=== PATIENT | female | born 1935 | race Caucasian/White ===

== ENCOUNTER → 2017-08-16 13:53 | Outpatient (CLI) | payer MEDICARE, OTHER, SELFPAY ==
[2017-07-28 10:20] VITALS: BMI 26.6
--- NOTE | 2017-08-16 | DI.CT.S_ITS ---
PROCEDURE: CT LUMBAR SPINE WO CON INDICATIONS: LUMBAR SPINE PAIN TECHNIQUE: Noncontrast 3 mm thick sections acquired from the T12 level to the sacrum. Sagittal and coronal reformats were constructed. For radiation dose reduction, the following was used: automated exposure control. COMPARISON: [facility], CR, XR LUMBAR SPINE 2-3V, 07/28/2017, 13:17. [facility], NM, BONE SCAN WHOLE BODY, 09/02/2016, 12:57. [facility], MR, L-SPINE WITHOUT CONTRAST, 04/10/2017, 15:56. [facility], RG, MRI L-SPINE W/WO CONTRAST, 10/27/2016, 13:58. FINDINGS: Image quality: Excellent. Bones: A discectomy and posterior fusion at L4-L5. The unilateral right pedicular screws and fusion rods appear in expected position and intact. There is normal bony alignment. Mild central depression of L2 vertebral body is noted, unchanged from 10/27/2016. No suspicious lytic or blastic bony lesions. Central spinal caliber is of normal overall caliber. No pars defects. T12-L1: Mild posterior disc bulge. No central canal or foraminal stenosis L1-L2: Mild diffuse disc bulge causing mild central canal stenosis. No foraminal stenosis. L2-L3: Mild diffuse disc bulge. Mild bilateral facet arthropathy and hypertrophy of ligamentum flavum. There is mild central canal stenosis. No foraminal stenosis. L3-L4: Mild loss of disc height and diffuse posterior disc bulge. Right hemilaminectomy. There is mild central canal and mild to moderate foraminal stenoses bilaterally, unchanged. L4-L5: Discectomy, right hemilaminectomy and posterior fusion. There is mild residual central canal central canal stenosis and moderate subarticular foraminal stenosis.. L5-S1: Preserved disc height and mild posterior disc bulge. No central canal stenosis. Mild bilateral foraminal stenosis. Soft tissues: No retroperitoneal masses or hematomas. Visualized aorta is normal in caliber with severe atherosclerotic calcifications. Paravertebral soft tissue stranding and calcification in the lower lumbar spine at L3-L4 and L4-L5 are likely postsurgical. Small hiatal hernia is noted. There is mild diverticulosis in sigmoid colon. IMPRESSION: 1. 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 2. Discectomy, right hemilaminectomy and posterior fusion at L4-L5, and right hemilaminectomy at L3-L4. 3. Mild central canal stenosis at L2-L3, L3-L4 and L4-L5 4. Moderate foraminal stenosis at L4-L5 bilaterally, and mild to moderate foraminal stenosis at L3-L4 bilaterally. Dictated by: Jeffery Summers M.D. on 08/16/2017 at 13:22 Transcribed by: TOM on 08/16/2017 at 13:39 Approved by: Jeffery Summers M.D. on 08/16/2017 at 15:34
== END ==
PROVIDERS: PCP Family Medicine; Visit Provider Orthopaedic Surgery
DX: M51.36 Other intervertebral disc degeneration, lumbar region (principal); M48.061 Spinal stenosis, lumbar region without neurogenic claudication; M99.73 Connective tissue and disc stenosis of intervertebral foramina of lumbar region
CPT/HCPCS: 72131

== ENCOUNTER → 2017-11-17 11:29 | Outpatient (CLI) | payer MEDICARE, OTHER, SELFPAY ==
[2017-07-28 10:20] VITALS: BMI 26.6
== END ==
PROVIDERS: PCP Family Medicine; Visit Provider Orthopaedic Surgery
DX: S39.012D Strain of muscle, fascia and tendon of lower back, subsequent encounter (principal); Z53.9 Procedure and treatment not carried out, unspecified reason

== ENCOUNTER → 2017-11-28 16:15 | Outpatient (CLI) | payer MEDICARE, OTHER, SELFPAY ==
[2017-07-28 10:20] VITALS: BMI 26.6
--- NOTE | 2017-11-28 16:18 | DI.MRI.S_ITS ---
PROCEDURE: MR LUMBAR SPINE WO/W CON INDICATIONS: Strain of muscle, fascia and tendon of lower back, TECHNIQUE: Noncontrast sagittal T1 spin echo and T2 fast spin echo, sagittal STIR, axial T1 and T2 fast spin echo through the lumbar spine. In cases with scoliosis, additional coronal T2 spin echo may be performed. After the administration of contrast, sagittal and axial T1 spin echo with fat saturation through the lumbar spine. COMPARISON: [facility], , L-SPINE WITHOUT CONTRAST, 04/10/2017, 15:56. [facility] [place], CR, XR LUMBAR SPINE 2 OR 3 VIEWS, 11/02/2017, 14:20. FINDINGS: Image quality: Excellent. Alignment and curvature: There is normal bony alignment. Marrow: Postsurgical changes related L4-L5 posterior paraspinal fixation and interbody cage graft. There is also L3-L4 right laminotomy. No acute vertebral body compression fractures. No suspicious marrow enhancement. Presumed T1-T2 bright L2 vertebral body hemangioma Spinal cord: Conus medullaris terminates at the L1 level. Visualized spinal cord demonstrates normal signal, without suspicious enhancement. Paraspinous soft tissues: No paravertebral masses. Postsurgical enhancing granulation tissue seen at the L3-L4 right laminotomy site. No definite associated canal narrowing . No discrete epidural fluid collection or evidence of abscess. L1-L2: Broad-based posterior disc bulge bilateral facet arthropathy. No canal stenosis. No definite foraminal narrowing. L2-L3: Broad-based posterior disc bulge and bilateral facet arthropathy. Minimal canal narrowing which is unchanged. No definite foraminal stenosis. L3-L4: Broad-based posterior disc bulge and bilateral facet arthropathy. Mild residual canal narrowing which appears improved since the prior study. Mild right foraminal stenosis. No definite left foraminal narrowing. No interval change. L4-L5: Mild residual canal narrowing, however markedly improved appearance since 04/10/17. Severe left foraminal narrowing appears unchanged, and probably severe right foraminal stenosis (largely obscured by hardware artifact) L5-S1: No definite canal stenosis. Mild bilateral foraminal narrowing which appears unchanged. 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 IMPRESSION: Improved canal narrowing at L3-L4 and L4-L5. Bilateral foraminal stenoses, as outlined above most pronounced at L4-L5 which appear unchanged although not well visualized on the right at this level due to hardware artifact. Enhancing granulation tissue seen at the superficial soft tissues, and the right L3-L4 laminotomy however no definite extension into the canal or neural foramen. Dictated by: Jameson Lee M.D. on 11/29/2017 at 9:01 Approved by: Jameson Lee M.D. on 11/29/2017 at 9:19
== END ==
PROVIDERS: PCP Family Medicine; Visit Provider Orthopaedic Surgery
DX: S39.012D Strain of muscle, fascia and tendon of lower back, subsequent encounter (principal); M48.061 Spinal stenosis, lumbar region without neurogenic claudication
CPT/HCPCS: 72158; A9579

== ENCOUNTER 2018-04-10 13:47 | Outpatient (CLI) | payer MEDICARE, OTHER, SELFPAY ==
[2017-07-28 10:20] VITALS: BMI 26.6
[2018-04-10] VITALS (7 sets, daily range): BP systolic 132–165; BP diastolic 56–75; PULSE 62–71; RESP 16–18; TEMP 37.2; O2SAT 94–99
--- NOTE | 2018-04-10 13:49 | DI.RAD.S_ITS ---
PROCEDURE: PAIN L INTERLAMINAR/CAUDAL INJ INDICATIONS: SPINAL STENOSIS FINDINGS: Fluoroscopic spot filming was performed to verify placement of spinal needles at the L5-S1 level(s), as labeled on the films. Appropriate location(s) of the needle tip(s) was confirmed by injection of iodinated contrast. IMPRESSION: Fluoroscopy for pain management. Dictated by: Jeffery Summers M.D. on 04/10/2018 at 16:53 Approved by: Jeffery Summers M.D. on 04/10/2018 at 16:53
[2018-04-10] MEDS: MIDAZOLAM 5 MG/5 ML VIAL IV (14:31)
[2018-04-10] MEDS: DEXAMETHASONE 10 MG/ML VIAL 20 MG INJ (14:35)
[2018-04-10] MEDS: IOPAMIDOL 15 ML VIAL 3 ML INJ (14:35)
[2018-04-10] MEDS: BUPIVACAINE 0.25% (PF) VIAL 2 ML INJ (14:35)
[2018-04-10] MEDS: methylPREDNISolone acetate 80 MG/ML VIAL INJ (14:35)
--- NOTE | 2018-04-10 14:37 | PC.NURSE ---
ASSISTING PT OFF TABLE AND TRANSPORTING TO POST PROC AREA IN STABLE CONDITION
--- NOTE | 2018-04-10 14:44 | P.PCN_ITS ---
Procedures Date/Time Date of procedure: 04/10/18 Time of procedure: 14:43 General Procedure description: PROVIDER: Jasmeet Brink DO Operative Note PREOP DIAGNOSIS 1. HNP WITH RADICULAR FEATURES, 2. MULTILEVEL CENTRAL STENOSIS, POST OP DIAGNOSIS 1. HNP WITH RADICULAR FEATURES, 2. MULTILEVEL CENTRAL STENOSIS, PROCEDURES 1. FLUORSCOPICALLY GUIDED CONTRAST CONTROLLED INTERLAMINAR EPIDURAL STEROID INJECTION - L5/S1 PHYSICIAN: Jasmeet Brink DO INDICATIONS Krystyna is referred by Dr. Oneal for treatment of Bilateral Foraminal Stenosis L>R LE symptoms. FINDINGS Multilevel Central Spinal Stenosis with Nerve Root Compression DESCRIPTION OF PROCEDURE Fluoroscopically guided, contrast-controlled L5/S1 translaminar epidural steroid injection. Following denial of allergy and review of potential side effects and complications, including, but not necessarily limited to, infection, allergic reaction, local tissue breakdown, temporary as well as permanent nerve injury, paralysis, stroke and possible , the patient indicated that the patient understood and agreed to proceed. An informed consent document was signed by the patient, witnessed by a nurse, and placed in the patient's chart. Additionally, other treatment options including modalities, medications, and physical therapy were reviewed with the patient. After review of previous anaesthesic history and IV conscious sedation the patient was deemed safe to proceed with todays procedure with IV conscious sedation as ASA class II designation. Safety time-out was performed to confirm patient ID, procedure to be performed and site of procedure. IV sedation was accomplished with a combination of 3mg of Versed administered by the RN after DO order, titrated to patient comfort during the course of the procedure while the patient remained responsive to all verbal commands. In the prone position, following sterile prep and drape of the lumbar region, the L5/S1 translaminar space was identified fluoroscopically. The skin was anesthetized via a 25-gauge, 1.5-inch needle with 1% lidocaine solution. At this point, a 22-gauge short bevel spinal needle was atraumatically introduced and advanced under fluoroscopic guidance into the region of the L5/S1 translaminar space. Depth was confirmed on lateral view. Radiological data, including multiple fluoroscopic views of the lumbar spine, reveal a spinal needle at the L5/S1 translaminar space. Lateral views then show placement of the needle in the epidural space. Subsequent views show contrast material flowing superiorly and inferiorly in the epidural space. No vascular or intrathecal uptake is observed. At this point, using loss of resistance technique with saline and air, the epidural space was entered. This was confirmed following negative aspiration with injection of approximately 1.5 cc of Isovue 200, showing excellent epidural flow without vascular or intrathecal uptake. At this point, 1 cc of 1 % lidocaine solution combined with 3 cc or 20 mg of dexamethasone and 80mg Depo medrol was injected without incident. The patent tolerated the procedure without signs of symptoms of complications prior to transfer to the recovery area for further monitoring. The patient was then transferred to the recovery area where they were observed for an appropriate period of time after the injection. The patient reported a VAS score of 6 prior to the procedure and a post-procedure VAS of 0. Total Fluoroscopy Time: 11.8 seconds Total Conscious Sedation Time: 24min POST OP INSTRUCTIONS The patient was provided a Pain Log to continue to record their response to the target-specific procedure prior to follow-up visit with their referring physician. Additionally, specific post-injection care instructions and a contact number to our office were provided if concerns arise regarding possible complications associated with the procedure are suspected. Jasmeet Brink DO Complications: none
--- NOTE | 2018-04-10 16:32 | PC.NURSE ---
Pt returned via w/c from procedure room, able to get into chair from w/c. Pt alert and stable. Resumed monitoring.
--- NOTE | 2018-04-10 16:37 | PC.NURSE ---
pt is just snoring, vital signs stable, pt stable.
--- NOTE | 2018-04-11 16:34 | CM.MNRNOTE ---
Follow up call made post injection, pt has had only one episode when she was lying on her left side that her leg did it's nerve thing and it runs it's course which is about 2-3 seconds and that is the only one she's had today. Also pt reports being up and moving around today without any problems.
== END 2018-04-10 15:17 ==
LOC: RAD 13:48
PROVIDERS: PCP Family Medicine; Visit Provider Physical Medicine & Rehabilitation
DX: M51.17 Intervertebral disc disorders with radiculopathy, lumbosacral region (principal); M48.07 Spinal stenosis, lumbosacral region; M48.062 Spinal stenosis, lumbar region with neurogenic claudication; Z98.1 Arthrodesis status
CPT/HCPCS: 62323; 99152; J1040; J1100; J2250

== ENCOUNTER 2018-05-08 14:33 | Outpatient (CLI) | payer MEDICARE, OTHER, SELFPAY ==
[2017-07-28 10:20] VITALS: BMI 26.6
[2018-05-08] VITALS (7 sets, daily range): BP systolic 141–187; BP diastolic 82–99; PULSE 72–86; RESP 15–18; TEMP 36.4; O2SAT 95–99
--- NOTE | 2018-05-08 14:35 | DI.RAD.S_ITS ---
PROCEDURE: PAIN L INTERLAMINAR/CAUDAL INJ INDICATIONS: INTERVERTEBRAL DISC DISPLACEMENT FINDINGS: Fluoroscopic spot filming was performed to verify placement of spinal needles at the L3-L4 level(s), as labeled on the films. Appropriate location(s) of the needle tip(s) was confirmed by injection of iodinated contrast. L4 L5-1 spinal instrumentation and intervertebral cage graft Dictated by: Jameson Lee M.D. on 05/08/2018 at 17:20 Approved by: Jameson Lee M.D. on 05/08/2018 at 17:21
[2018-05-08] MEDS: fentaNYL 100 MCG/2 ML INJ 50 MCG IV (15:15)
[2018-05-08] MEDS: MIDAZOLAM 5 MG/5 ML VIAL IV (15:15)
--- NOTE | 2018-05-08 15:26 | PC.NURSE ---
pt tolerated procedure well. Able to get off gurney with 2 person moderate assist. Transferred pt via wheelchair to pre procedure room for continued monitoring by Krista CASH.
--- NOTE | 2018-05-08 15:41 | P.PCN_ITS ---
Procedures Date/Time Date of procedure: 05/08/18 Time of procedure: 15:39 General Procedure description: POST OP DIAGNOSIS 1. HNP WITH RADICULAR FEATURES, 2. MULTILEVEL CENTRAL STENOSIS, PROCEDURES 1. FLUORSCOPICALLY GUIDED CONTRAST CONTROLLED INTERLAMINAR EPIDURAL STEROID INJECTION - L3/4 PHYSICIAN: Jasmeet Brink DO INDICATIONS Krystyna is referred by Dr. Oneal for treatment of Bilateral Foraminal Stenosis L>R LE symptoms. FINDINGS Multilevel Central Spinal Stenosis with Nerve Root Compression DESCRIPTION OF PROCEDURE Fluoroscopically guided, contrast-controlled L3/4 translaminar epidural steroid injection. Following denial of allergy and review of potential side effects and complications, including, but not necessarily limited to, infection, allergic reaction, local tissue breakdown, temporary as well as permanent nerve injury, paralysis, stroke and possible , the patient indicated that the patient understood and agreed to proceed. An informed consent document was signed by the patient, witnessed by a nurse, and placed in the patient's chart. Additionally, other treatment options including modalities, medications, and physical therapy were reviewed with the patient. After review of previous anaesthesic history and IV conscious sedation the patient was deemed safe to proceed with todays procedure with IV conscious sedation as ASA class II designation. Safety time-out was performed to confirm patient ID, procedure to be performed and site of procedure. IV sedation was accomplished with a combination of 2mg of Versed and 50mcg of Fentanyl was administered by the RN after DO order, titrated to patient comfort during the course of the procedure while the patient remained responsive to all verbal commands. In the prone position, following sterile prep and drape of the lumbar region, the L3/4 translaminar space was identified fluoroscopically. The skin was anesthetized via a 25-gauge, 1.5-inch needle with 1% lidocaine solution. At this point, a 22-gauge short bevel spinal needle was atraumatically introduced and advanced under fluoroscopic guidance into the region of the L3/4 translaminar space. Depth was confirmed on lateral view. Radiological data, including multiple fluoroscopic views of the lumbar spine, reveal a spinal needle at the L3/4 translaminar space. Lateral views then show placement of the needle in the epidural space. Subsequent views show contrast material flowing superiorly and inferiorly in the epidural space. No vascular or intrathecal uptake is observed. At this point, using loss of resistance technique with saline and air, the epidural space was entered. This was confirmed following negative aspiration with injection of approximately 1.5 cc of Isovue 200, showing excellent epidural flow without vascular or intrathecal uptake. At this point, 1 cc of 1% lidocaine solution combined with 2cc or 20mg of dexamethasone was injected without incident. The patient tolerated the procedure well without signs or symptoms of complications prior to transfer to the recovery area continued monitoring without incident. The patient was then transferred to the recovery area where they were observed for an appropriate period of time after the injection. The patient reported a VAS score of 6 prior to the procedure and a post- procedure VAS of 0. Total Fluoroscopy Time: 11.8 seconds Total Conscious Sedation Time: 24min POST OP INSTRUCTIONS The patient was provided a Pain Log to continue to record their response to the target-specific procedure prior to follow-up visit with their referring physician. Additionally, specific post-injection care instructions and a contact number to our office were provided if concerns arise regarding possible complications associated with the procedure are suspected. Jasmeet Brink DO Complications: none
[2018-05-08] MEDS: IOPAMIDOL 15 ML VIAL 3 ML INJ (15:44)
[2018-05-08] MEDS: BUPIVACAINE 0.25% (PF) VIAL 2 ML INJ (15:44)
[2018-05-08] MEDS: DEXAMETHASONE 10 MG/ML VIAL 20 MG INJ (15:45)
--- NOTE | 2018-05-09 16:29 | PC.NURSE ---
FOLLOW UP CALL MADE, PT STATES SHE HAS NOT HAD ANY SHOOTING PAINS DOWN HER LEG (HER PRIMARY COMPLAINT) SINCE PROCEDURE. DENIES QUESTIONS/CONCERNS. I ENCOURAGED HER TO CONTINUE HER PAIN LOG AND CALL THE CLINIC # IF ANY QUESTIONS/CONCERNS ARISE.
== END 2018-05-08 16:10 | disposition home or self-care (01) ==
LOC: RAD 14:34
PROVIDERS: PCP Family Medicine; Visit Provider Physical Medicine & Rehabilitation
DX: M51.16 Intervertebral disc disorders with radiculopathy, lumbar region (principal); M48.062 Spinal stenosis, lumbar region with neurogenic claudication; Z98.1 Arthrodesis status
CPT/HCPCS: 62323; 99152; J1100; J2250; J3010

== ENCOUNTER → 2018-05-15 12:21 | Outpatient (CLI) | payer MEDICARE, OTHER, SELFPAY ==
[2017-07-28 10:20] VITALS: BMI 26.6
--- NOTE | 2018-05-15 | DI.MRI.S_ITS ---
PROCEDURE: MR KNEE LT WO CON INDICATIONS: CHRONIC PAIN OF LEFT KNEE TECHNIQUE: Noncontrast sagittal PD fast spin echo and T2 fast spin echo with fat saturation, sagittal 3-D FLASH with fat saturation; coronal T1 spin echo and PD fast spin echo with fat saturation, and axial PD fast spin echo with fat saturation through the knee. COMPARISON: None. FINDINGS: Image quality: Excellent. Menisci: There is extensive degenerative tear of the medial meniscus. A loculated fluid filled structure is noted in the posterior medial aspect of the knee joint, most likely meniscal cyst. There lateral meniscus demonstrates normal morphology and internal signal. The meniscal root ligaments appear intact. Cruciate ligaments: The anterior and posterior cruciate ligaments appear intact. Medial structures: The medial collateral ligament appears intact. The posterior oblique ligament, semimembranosus tendon insertions, oblique popliteal ligament, and meniscocapsular junction appear intact. Visualized portions of the pes anserinus tendons appear normal. There is a fluid collection in the medial aspect of the knee joint between the superficial and deep tear of the medial collateral ligament, consistent with medial collateral ligament bursitis. Small amount of bursal fluid is also noted in the pes anserinus bursa, suggesting mild bursitis Lateral structures: The lateral collateral ligament, long and short heads of the biceps femoris tendon appear intact. The popliteus tendon appears normal; the popliteofibular ligament appears intact. The posterosuperior and anteroinferior popliteomeniscal fascicles appear intact. The arcuate and fabellofibular ligaments appear intact, on either side of the lateral inferior geniculate artery. Iliotibial band appears normal. Anterior structures: The quadriceps and patellar tendons appear intact. Patellar alignment is normal. No femoral trochlear dysplasia or ventral trochlear prominence. No edema in the infrapatellar fat pad. Bones and cartilage: No bone marrow contusions or fractures. There is mild edema in the medial femoral condyle and medial tibia plateau, likely secondary to a bone on bone. There is tricompartmental cartilage loss, severe in the medial femorotibial compartments and the patellofemoral compartment, appears normal in thickness. Joint space: There is small knee joint effusion. Tiny Lambert's cyst. Normal appearing synovial plicae are incidentally noted. IMPRESSION: 1. 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 A loculated fluid filled structure is noted in the posterior medial aspect of the knee joint, most likely meniscal cyst. 2. Severe cartilage loss of the medial femorotibial compartment and the patellar femoral compartment. . 3. Medial collateral ligament bursitis. 4. Mild pes anserinus bursa bursitis. 5. Small knee joint effusion. Dictated by: Jeffery Summers M.D. on 05/15/2018 at 13:47 Approved by: Jeffery Summers M.D. on 05/15/2018 at 17:59
== END ==
PROVIDERS: Visit Provider Orthopaedic Surgery
DX: M25.562 Pain in left knee (principal); M23.204 Derangement of unspecified medial meniscus due to old tear or injury, left knee; M70.52 Other bursitis of knee, left knee; M25.462 Effusion, left knee; G89.29 Other chronic pain
CPT/HCPCS: 73721

== ENCOUNTER → 2018-06-29 11:13 | Outpatient (CLI) | payer MEDICARE, OTHER, SELFPAY ==
[2017-07-28 10:20] VITALS: BMI 26.6
[2018-06-29 13:05] LABS: Bacteria Urine None Seen; RBC Urine None Seen (0-5/HPF)
[2018-06-29 13:21] LABS: Hematocrit 37.7 % (36-46); Hemoglobin 12.5 g/dL (12.0-16.0); Mean Corpuscular HGB Conc 33.1 % (30-36); Mean Corpuscular Volume 84.6 fL (80-100); Platelet Count 262 X10^3/uL (150-400); Red Blood Cell Count 4.46 X10^6/uL (4.0-5.2); Red Cell Distribution Width 15.1 % (11.6-14.8); White Blood Cell Count 5.5 X10^3/uL (4.5-11.0)
[2018-06-29 13:33] LABS: Appearance Urine UA CLEAR; Bilirubin Urine UA NEGATIVE (NEGATIVE); Color Urine UA YELLOW; Glucose Urine UA NEGATIVE (Negative); Ketones Urine UA NEGATIVE (NEGATIVE); Leukocyte Esterase Urine UA 1+ (NEGATIVE); Nitrite Urine UA NEGATIVE (Negative); Occult Blood Urine UA TRACE-LYSED (Negative); Protein Urine UA TRACE (Negative); Specific Gravity Urine UA >=1.030 (1.000-1.035); Urobilinogen Urine UA 0.2 E.U./dL (0.2); pH Urine UA 5.5 (4.5-8.0)
[2018-06-29 13:35] LABS: Hemoglobin A1C% w Est Avg Glu 5.5 % (4.0-6.0)
[2018-06-29 13:51] LABS: BUN Creatinine Ratio 25.6 (6-22); Blood Urea Nitrogen 23 mg/dL (7-17); Calcium 9.4 mg/dL (8.4-10.2); Carbon Dioxide 27 mmol/L (22-32); Chloride 100 mmol/L (98-107); Estimated Glomerular Filt Rate 59.7 mL/min (>60); Glucose 100 mg/dL (80-110); HEMOLYSIS < 15 (0-50); Potassium 4.4 mmol/L (3.4-5.1); Sodium 136 mmol/L (137-145)
[2018-06-29 13:58] LABS: Culture Indicated Urine Cult Not Indicated; Hyaline Casts Urine 1-5/LPF; Mucus Urine 2+ (Negative); Squamous Epithelial Cell Urine 0-1 /HPF (0-5/HPF); WBC Urine 1-5/HPF (0-5/HPF)
== END ==
PROVIDERS: Visit Provider Orthopaedic Surgery
DX: Z01.818 Encounter for other preprocedural examination (principal); R73.9 Hyperglycemia, unspecified; N39.0 Urinary tract infection, site not specified
CPT/HCPCS: 36415; 80048; 81001; 83036; 85027; 93005; 93010

== ENCOUNTER 2018-07-17 11:19 | Inpatient (IN) | payer MEDICARE, OTHER, SELFPAY ==
[2017-07-28 10:20] VITALS: BMI 26.6
[2018-07-03 13:17] VITALS: BMI 27.2
[2018-07-17] VITALS (14 sets, daily range): BP systolic 110–151; BP diastolic 47–77; PULSE 73–96; RESP 10–17; TEMP 36.6–37.1; O2SAT 90–97; BMI 27.2
--- NOTE | 2018-07-17 06:00 | DI.RAD.S_ITS ---
PROCEDURE: XR KNEE LT 1TO2V INDICATIONS: prosthesis placement TECHNIQUE: 2 view(s) of the knee acquired. COMPARISON: [facility], MR, MR KNEE LT WO CON, 05/15/2018, 12:49. [facility] [place], CR, XR BONE LENGTH SCANOGRAM, 05/25/2018, 13:57. FINDINGS: Bones: Patient is status post knee joint arthroplasty. Hardware components are in expected positions. Visualized bony structures are intact. Soft tissues: Overlying postoperative changes are noted. IMPRESSION: Total knee arthroplasty with prosthesis in anatomic alignment. Dictated by: Jeffery Summers M.D. on 07/17/2018 at 17:07 Approved by: Jeffery Summers M.D. on 07/17/2018 at 17:08
[2018-07-17] MEDS: LACTATED RINGERS 1,000 ML 42 ML IV (12:05)
[2018-07-17] MEDS: ACETAMINOPHEN 325 MG TABLET 975 MG PO ×2 (12:06→22:38)
[2018-07-17] MEDS: CELECOXIB 200 MG CAPSULE PO (12:06)
[2018-07-17] MEDS: PREGABALIN 75 MG CAPSULE PO (12:06)
[2018-07-17] MEDS: VANCOMYCIN 1,000 MG/200 ML FROZ.PIGGY 200 MG IV (12:50)
--- NOTE | 2018-07-17 13:11 | SUR.PREOP ---
Computer will not allow me to document new iv start in the right forearm. Inserted 20 g; previous site uncomfortable to patient, she felt that it had swollen after insertion; no blood return. Tolerated IV site change well.
--- NOTE | 2018-07-17 13:30 | PM.PREOP ---
Pre-operative Note Interval Note History & Physical reviewed/Exam performed by Physician: Yes Changes to H&P: Yes
--- NOTE | 2018-07-17 13:31 | PM.OP.1 ---
Operative Date/Time/Diagnoses Date of procedure: 07/17/18 Time of procedure: 13:46 Pre-op diagnosis: Left knee osteoarthritis Post-op diagnosis: same Procedure & Clinicians Procedure: Left total knee arthroplasty Same procedure as scheduled: Yes Indications: The patient has had progressively worsening left knee pain with radiographic changes consistent with arthritis. Non-operative management has failed and the patient has requested total knee replacement. The risks, benefits and alternatives to surgery were discussed with the patient prior to proceeding. Risks discussed included, but were not limited to, failure to relieve pain, stiffness, infection, nerve damage, deep venous thrombosis, pulmonary embolism, stroke, coma, heart attack, permanent paralysis and , as well as the potential need for eventual revision of the prosthetic. Surgeon: Gabriella Tucker [employer] Instructor: Sonam Silva Anesthesia Type: General and Spinal Operative Notes Findings: Severe left knee osteoarthritis, good stability Closure Type: primary Specimen(s): none sent Prosthetic devices, grafts, tissues, transplants, or devices: Tucker and Nephew Rosa BCS2 4 FEMUR, 3 TIBIA, +10 POLY, 35 BY 7.5 PATELLA Applied: drain(s) Estimated Blood Loss (mL): 250 Blood products transfused: none Procedure in detail: THE PATIENT WAS SEEN IN THE PRE-OPERATIVE AREA, WHERE THE PATIENT IDENTIFIED THE LEFT KNEE THE OPERATIVE SITE AND THIS WAS MARKED WITH MY INITIALS. THE PATIENT RECEIVED PRE-OPERATIVE ANTIBIOTICS, AND WAS TAKEN TO THE OPERATING ROOM AND PLACED ON THE OPERATIVE TABLE IN THE SUPINE POSITION. AFTER SATISFACTORY ANESTHESIA, A AIRCRAFT GENERAL REPAIR MECHANIC OUT WAS PERFORMED. THE LEFT LEG WAS ENCIRCLED WITH A TOURNIQUET ABOUT THE PROXIMAL THIGH, AND THE LEG WAS PREPARED FROM THE TOES TO THE TOURNIQUET WITH CHLOROPREP IN THE USUAL FASHION AND DRAPED THROUGH STERILE DRAPES. THE LEG WAS ELEVATED AND EXSANGUINATED WITH [employer] BANDAGE AND THE TOURNIQUET INFLATED TO [250] [employer] PRESSURE. THE KNEE WAS APPROACHED THROUGH AN APPROXIMATELY 18 CM INCISION CENTERED OVER THE PATELLA AND CARRIED INTO THE KNEE THROUGH A MEDIAL PARAPATELLAR ARTHROTOMY. PORTION OF THE MEDIAL AND LATERAL MENISCUS WAS RESECTED. SOFT TISSUE WAS CAREFULLY MOBILIZED AROUND THE PATELLA THE PATELLA WAS MEASURED WITH A CALIPER. BONE WAS RESECTED FROM THE PATELLA AND THE PATELLAR HEIGHT WAS RECONSTITUTED WITH UP AN APPROPRIATE SIZED PATELLAR COMPONENT. A COVER WAS THEN PLACED ON THE PATELLA. A SMALL AMOUNT OF ADDITIONAL MEDIAL AND LATERAL MENISCUS WAS RESECTED. THE VISIONARE GUIDE FIT WELL TO THE DISTAL FEMUR. IT LOOKED LIKE AN APPROPRIATE DISTAL FEMORAL CUT AND THE CUT WAS MADE WITHOUT DIFFICULTY. THE ROTATION WAS ASSESSED AND THE APPROPRIATE SIZE FEMORAL GUIDE WAS PLACED ON THE DISTAL FEMUR AND FINISHING CUTS WERE MADE. THERE WAS NO EVIDENCE OF NOTCHING. THE ANTERIOR, POSTERIOR AND CHAMFER CUTS WERE THEN MADE. THE POSTERIOR OSTEOPHYTES AND SOFT TISSUES WERE THEN REMOVED. THE POSTERIOR CAPSULE WAS INJECTED WITH PART OF A MIXTURE OF 60 ML 0.25% MARCAINE MIXED WITH 20 ML EXPAREL FOR POST OPERATIVE PAIN CONTROL. THE REMAINDER OF THIS MIXTURE WAS INJECTED INTO THE CAPSULE AND SUBCUTANEOUS TISSUES DURING CEMENT CURING. THE TIBIA WAS PREPARED AND THE VISIONAIRE GUIDE FIT WELL TO THE DISTAL TIBIA. THE ROTATION WAS ASSESSED. THE PATIENT WAS PLACED IN EXTENSION RESIDUAL MEDIAL AND LATERAL MENISCUS WELL ANY RESIDUAL BONE WAS CAREFULLY RESECTED. [NO] ADDITIONAL TIBIA WAS RESECTED. HEMOSTASIS WAS ACHIEVED ESPECIALLY POSTERIORLY. ADDITIONAL LOCAL WAS INJECTED INTO THE POSTERIOR CAPSULE. THE EXTENSION GAP WAS ASSESSED AND ADDITIONAL RELEASES FOR GAP BALANCING WERE PERFORMED NECESSARY. THE FEMORAL COMPONENT WAS TRIAL WAS PLACED AND THE NOTCH WAS FINISHED. TRIAL TIBIAL AND FEMORAL COMPONENTS WERE THEN PLACED AND THE KNEE PLACED THROUGH A RANGE OF MOTION. RANGE OF MOTION WAS [0-130], WITH GOOD STABILITY THROUGHOUT THE RANGE. THE TRIALS WERE THEN REMOVED, AND THE TIBIA WAS FINISHED. THE BONE WAS PREPARED WITH PULSATILE LAVAGE, AND DRIED WITH A SPONGE. CEMENT WAS APPLIED AND THE FINAL PROSTHETICS PLACED. EXCESS CEMENT WAS REMOVED DURING AND AFTER CEMENT CURING. A BRIEF BETADINE SOAK WAS PERFORMED. AFTER CONFIRMING THERE WAS NO EXTRUDED CEMENT POSTERIORLY, THE FINAL TIBIAL INSERT WAS PLACED. THE KNEE WAS COPIOUSLY IRRIGATED AND THE TOURNIQUET DEFLATED. HEMOSTASIS WAS OBTAINED WITH THE [BOVIE]. A DRAIN WAS PLACED AND BROUGHT OUT SUPEROLATERALLY. THE CAPSULE WAS CLOSED WITH INTERRUPTED VICRYL SUTURE. THE SUBCUTANEOUS LAYER WAS CLOSED WITH BARBED SUTURES, AND THE SKIN WITH A RUNNING 3-0 V-LOCK SUTURE AND SURGICAL GLUE. AN AQUACEL AG DRESSING WAS APPLIED AND THE PATIENT WAS TAKEN TO RECOVERY HAVING TOLERATED THE PROCEDURE WELL. Complications: none Condition: stable Disposition: Acute Care Plan for aftercare: THE PATIENT WILL BE MAINTAINED ON A STANDARD TOTAL KNEE REPLACEMENT PROTOCOL WITH WEIGHT BEARING TOLERATED. THE PATIENT WILL RECEIVE ASPIRIN AND SEQUENTIAL COMPRESSION DEVICES FOR DVT PROPHYLAXIS. THE PATIENT WILL BE DISCHARGED WHEN SAFE. SHE IS INTENTIONALLY BEING ADMITTED AN INPATIENT SHE HAS MULTIPLE SIGNIFICANT ORTHOPEDIC PROBLEMS. SHE IS 83 YEARS OLD. SHE HAS BALANCE ISSUES. SHE IS OVERWEIGHT. SHE HAS A HISTORY OF SPINE SURGERY WITH A LUMBAR FUSION WITH CHRONIC LOW BACK PAIN AND SOME NEUROPATHY. SHE HAS A HISTORY OF RIGHT TOTAL KNEE ARTHROPLASTY ORIF OF HER RIGHT FEMUR A RIGHT VASU HIP HEMIARTHROPLASTY AND A COMPLEX RECONSTRUCTION OF HER RIGHT FEMUR WITH BONE PLATES AND INTERNAL FIXATION. SHE IS FELT TO BE AT SIGNIFICANT RISK FOR FALLS AND NEEDS ADDITIONAL INPATIENT MONITORING IN THERAPY. SHE ALSO HAS SOME MILD MEMORY ISSUES.
[2018-07-17] MEDS: CEFAZOLIN 2 GM/100 ML FROZ.PIGGY IV ×2 (13:40→22:40)
[2018-07-17] MEDS: TRANEXAMIC ACID 1,000 MG VIAL 1000 MG INJ ×2 (13:55→15:18)
--- NOTE | 2018-07-17 14:06 | SUR.OPER ---
Supine on padded OR bed. Pillow under head, arms secured on padded armboards <90 degree abduction. Safety belt across torso. Non-operative leg secured with tape over blanket over lower leg. Operative leg secured in DeMayo/Chente positioner. Foam padded brace at thigh of operative leg.
[2018-07-17] MEDS: BUPIVACAINE LIPOSOME 266 MG/20 ML VIAL INJ (14:11)
[2018-07-17] MEDS: POVIDONE-IODINE 15 ML, SODIUM CHLORIDE 0.9% 250 ML TOP (14:13)
[2018-07-17] MEDS: hydrOXYzine pamoate 25 MG CAPSULE PO (16:59)
[2018-07-17] MEDS: LACTATED RINGERS 1,000 ML 125 ML IV (16:59)
[2018-07-17] MEDS: NALBUPHINE 20 MG/ML AMPUL 5 MG IV (20:54)
[2018-07-17] MEDS: METOCLOPRAMIDE 10 MG/2 ML INJ IV (22:20)
[2018-07-17] MEDS: MAG HYDROX/ALUM/SIMETH 30 ML UDC PO (22:30)
[2018-07-17] MEDS: ASPIRIN EC 81 MG TABLET PO (22:39)
[2018-07-17] MEDS: PREGABALIN 50 MG CAPSULE 200 MG PO (22:39)
[2018-07-17] MEDS: GABAPENTIN 600 MG TABLET PO (22:39)
[2018-07-17] MEDS: SERTRALINE 25 MG TABLET PO (22:39)
[2018-07-17] MEDS: DOCUSATE 100 MG CAPSULE PO (22:39)
--- NOTE | 2018-07-17 23:36 | PC.NURSE ---
Admission Note: Pt admitted to Acute Care s/p L TKA. Pt denies pain, able to wiggle toes. Pt with numbness from hips to feet. L knee with joan wrap, hemovac initially clamped, dark red output after unclamped. Pt with complaints of itchiness on nose, given vistiril with no relief, then given nubain with itching improving. Pt denies pain. Using bedpan for urine. Also with reflux and emesis, pt reports that it is acid reflux, not nausea. Pt given mylanta and reglan with improvement in nausea and reflux. Pt otherwise with VSS. Will continue to monitor, notify MD with changes.
[2018-07-17] MEDS: PANTOPRAZOLE 20 MG TABLET PO (23:58)
[2018-07-17] MEDS: TRAMADOL 50 MG TABLET PO (23:59)
[2018-07-18] MEDS: LACTATED RINGERS 1,000 ML 125 ML IV (00:54)
--- NOTE | 2018-07-18 01:30 | PC.NURSE ---
Addendum entered by Siobhan Ruth R.N. 07/18/18 02:41: Pt. on continuous pulse ox. Desat to 91% at 0100. Pt. placed on 1LNC; RT notified. Original Note: SHIFT 11p-7a Report received, care assumed. Pt. A&Ox3, VSS. Denies pain but reports sensation returning to LLE. Tramadol administered. Pt. on bedrest, using bedpan, calling for help appropriately.
[2018-07-18 03:00] VITALS: BP 121/73; PULSE 72; RESP 16; TEMP 36.3; O2SAT 98
[2018-07-18] MEDS: HYDROCODONE/ACET 5/325 TABLET 2 TAB PO (04:12)
[2018-07-18] MEDS: CEFAZOLIN 2 GM/100 ML FROZ.PIGGY IV (05:34)
[2018-07-18 06:33] LABS: Hematocrit 31.9 % (36-46); Hemoglobin 10.8 g/dL (12.0-16.0)
[2018-07-18 07:00] VITALS: BP 127/63; PULSE 75; RESP 18; TEMP 37; O2SAT 98
[2018-07-18] MEDS: ACETAMINOPHEN 325 MG TABLET 975 MG PO ×3 (08:13→20:33)
[2018-07-18] MEDS: PREGABALIN 50 MG CAPSULE 200 MG PO ×2 (08:13→20:35)
[2018-07-18] MEDS: ASPIRIN EC 81 MG TABLET PO ×2 (08:14→20:34)
[2018-07-18] MEDS: DOCUSATE 100 MG CAPSULE PO ×2 (08:14→20:34)
[2018-07-18] MEDS: GABAPENTIN 600 MG TABLET PO ×2 (08:14→20:34)
[2018-07-18] MEDS: POLYETHYLENE GLYCOL 3350 17 GM POWD.PACK PO (08:24)
--- NOTE | 2018-07-18 08:32 | P.PN_ITS ---
Subjective Date Patient Seen: 07/18/18 Time Patient Seen: 08:29 Interval history: Pina 83 year old female who is POD#1 s/p left total knee arthroplasty with Dr. Tucker. She state her pain has been well controlled with Tramadol and [place]. She complains of some indigestion overnight that she has a history of as well. Some pain in the left ankle and dorsal surface of the foot which has improved with ice. She has not mobilized yet. No difficulty with voiding. Denies chest pain, shortness of breath or calf pain. Exam Vital Signs (past 8 hours): - 07/18/18 03:00 07/18/18 07:00 Temperature 97.3 F L 98.6 F Pulse Rate 72 75 Respiratory Rate 16 18 Blood Pressure 121/73 127/63 Pulse Oximetry 98 98 Oxygen Delivery Method Nasal Cannula Oxygen Flow Rate 0 Narrative Exam Narrative: Pina 83 year old female resting comfortably in bed, in no acute distress. Alert and oriented. Dressing in place over right knee is CDI with no visible drainage. Hemovac in place with 140cc output overnight. Intact active ROM of the foot. Sensation intact. 2+ distal pulses. Objective Labs Result Diagrams: 07/18/18 05:43 Labs: Laboratory Results - last 24 hr 07/18/18 05:43 Hgb 10.8 L Hct 31.9 L Assessment & Plan Post-op Postoperative Procedures Operation Date: 07/17/18 13:30 Actual Procedures Side Surgeon p Total Knee Arthroplasty Left Gabriella Angy Tucker MD 1. Patient has been slow to mobilize so far, should attempt today with PT. She has a complicated orthopedic history including history of lumbar fusion, chronic LBP with neuropathy, right total knee arthroplasty, ORIF of right femur, right hip hemiarthropathy, and right femur reconstruction. Due to all of this she will require additional time spent inpatient and potential discharge to SNF. 2. Start Protonix BID for acid reflux. 3. Remove drain today. 4. Continue pain control. 5. Patient has brace that she uses on her right thigh when ambulating, she is ok to continue this while inpatient. Postoperative day: 1
[2018-07-18] MEDS: PANTOPRAZOLE 20 MG TABLET PO ×2 (09:17→20:35)
[2018-07-18 11:00] VITALS: BP 129/77; PULSE 66; RESP 18; TEMP 36.4; O2SAT 98
--- NOTE | 2018-07-18 11:05 | PT.IIE ---
Current Diagnoses Unilateral primary osteoarthritis, left knee (07/17/18) Surgery Performed Operation Date: 07/17/18 13:30 Actual Procedures p Total Knee Arthroplasty(Left) - Gabriella Tucker MD Surgical History (Last Updated 07/03/18 @ 14:16 by Alejandrina Holguin, RN) Hx of shoulder surgery (Acute) S/P epidural steroid injection (Acute) H/O hemorrhoidectomy (Acute) History of arthroplasty of right knee (Acute) History of lumbar spinal fusion (Acute 07/28/17) History of total right hip arthroplasty (Acute 01/27/16) S/P left knee arthroscopy (Acute) Medical History (Last Updated 07/17/18 @ 18:17 by Lary Keith RN) Anxiety (Acute) Depression (Acute) Sciatica (Acute) Shoulder pain (Acute) Acid reflux (Acute) Chronic UTI (Acute) Easy bruisability (Acute) Elevated blood pressure reading without diagnosis of hypertension (Acute) Goiter (Acute) H/O: hysterectomy (Acute) Hip fracture, right (Acute) History of anal fissures (Acute) History of revision of total replacement of right hip joint (Acute) Nerve pain due to spinal stenosis (Acute) Restless leg syndrome (Acute) Trigeminal neuralgia (Acute) UTI (urinary tract infection) (Acute) Physical Therapy Inpatient Evaluation/Re-Eval M1 PT/OT-IP Prior Functional Status Start: 07/18/18 12:07 Freq: NEEDED Status: Active Protocol: Document 07/18/18 11:05 AB (Rec: 07/18/18 12:20 AB [id number]) Medical Review Prior Functional Status Medical History Reviewed Yes Communication able to make needs known Mobility and Gait pt stated that she is modified independent with all mobilities and ambulation without AD indoors but uses SPC or 4WW for outdoor mobility. uses 4WW more for long distances. Social History Household Members none Living Arrangements House Number of Floors (Floors) One Floor Number of Stairs To Enter/Railing? 8 steps using R rail ascending Home Environment Standard Height Toilet Walk in Shower Home Equipment Four Wheel Walker Straight Cane Raised Toilet Seat w/Armrests Shower Seat with Backrest Grab Bars In Shower Employment Status Retired Additional Social History Comment stated that she has a high bed with R rail M2 PT-IP Current Condition Start: 07/18/18 12:07 Freq: NEEDED Status: Active Protocol: Document 07/18/18 11:05 AB (Rec: 07/18/18 12:20 AB [id number]) Physical Therapy Current Condition Current Condition Evaluation Date 07/18/18 Treatment Diagnosis s/p L TKA; difficulty in walking Onset Date 07/17/18 Precautions Brace pt uses R thigh wrap/support ( with h/o multiple R femur injuries/surgeries) Other Precautions Falls Weight Bearing Status Weight Bearing Status Weight Bear as Tolerated M3 PT-IP Subjective Start: 07/18/18 12:07 Freq: NEEDED Status: Active Protocol: Document 07/18/18 11:05 AB (Rec: 07/18/18 12:20 AB [id number]) Subjective Physical Therapy Visit Type Type Initial Evaluation Visit Start Time 11:05 Visit Stop Time 11:46 Total Visit Minutes 41 Number of MERCHANDISING COORDINATOR Visits 0 Physical Therapy Visit Comments Patient Comments pt agreeable to do PT Patient Goals pt plans to go to SNF and then home Therapy Pain Assessment Pain When Pain Assessed At Rest Pain Present Pain Present Pain Reported Location Left Knee Intensity 3 Scale Used Numeric (1 - 10) Pain Management Techniques Apply Cold Re-positioning Timing of Activity with Medications M4 PT-IP Mobility and Gait Start: 07/18/18 12:07 Freq: NEEDED Status: Active Protocol: Document 07/18/18 11:05 AB (Rec: 07/18/18 12:20 AB [id number]) PT-Bed Mobility Assessment Supine to Sit Supine to Sit Maximum Assistance 1 Person Assistance Bedrails PT-Transfer Assessment Sit to and From Stand Sit to and from Stand Minimal Assistance 1 Person Assistance Use of Upper Extremities Equipment Transfer Assistive Device Gait Belt Front Wheeled Walker Orthotic/Prosthetic Devices or Brace: Yes Transfers Transfer Destination Chair Transfer Technique Stand Step Pivot Transfer Ability Level of Assist Minimal Assistance 1 Person Assistance Use of Upper Extremities Gait Assessment Gait Gait Assistance Required: Minimum Assistance 1 Person Assist Distance (Feet) 10 Able to Maintain Weight Bearing Status Yes During Gait Assistive Devices Assistive Device Gait Belt Front Wheeled Walker Orthotic/Prosthetic Devices or Brace: Yes Gait Deviations General Gait Pattern Antalgic Decreased Stride Length Decreased Feet Clearance Factors Limiting Gait Function Factors Limiting Gait Function Decreased Activity Tolerance Decreased Strength Difficulty Following Directions Limited Range of Motion Pain Poor Balance Poor Safety Awareness PT-Balance Assessment Sitting Balance and Reactions Static Sitting Balance Ability Good Dynamic Sitting Balance Ability Good Standing Balance and Reactions Static Standing Balance Ability Fair Dynamic Standing Balance Ability Fair Device Used FWW M5 PT-IP Objective Assessments Start: 07/18/18 12:07 Freq: NEEDED Status: Active Protocol: Document 07/18/18 11:05 AB (Rec: 07/18/18 12:20 AB [id number]) Orientation Orientation/Cognition Level of Alertness Alert Orientation Name Place Situation Language Function Ability Hard of Hearing Safety Awareness Decreased Safety Awareness Memory Description Short Term Impaired Shelter Impaired Gross Range of Motion Lower Extremity ROM Assessment Left Impaired Impairments L knee flexion: ~ 60 deg L knee extension: lacking ~ 20 deg to neutral Strength Lower Extremity Strength Assessment Bilaterally Impaired Comments Strength Comments RLE: 4-/5 LLE: 3+/5 Coordination Assessment Gross Coordination Gross Coordination WNL Muscle Tone Muscle Tone WNL Yes M6 PT-IP Treatment Start: 07/18/18 12:07 Freq: NEEDED Status: Active Protocol: Document 07/18/18 11:05 AB (Rec: 07/18/18 12:20 AB [id number]) Physical Therapy Treatment Exercises Exercises Quad Sets Heel Slides Education Education Provided Precautions Weight Bearing Status Post-Op Packet Safety M7 PT-IP Assessment and Plan Start: 07/18/18 12:07 Freq: NEEDED Status: Active Protocol: Document 07/18/18 11:05 AB (Rec: 07/18/18 12:20 AB [id number]) PT Summary Assessment and Plan Potential Rehabilitation Potential Good Status of Condition at Evaluation Stable Summary Impairments Pain ROM Strength Balance Coordination Sensation Tone Cognition Bed Mobility Transfers Gait Activity Tolerance Assessment Summary pt requiring min A with mobility using FWW. pt also has decrease activity tolerance affecting mobility. pt will benefit from SNF rehab to improve strength and functional independence prior to d/c home. Goals Bed Mobility Goal Minimal Assistance Transfer Goal Standby Assistance Front Wheeled Walker Gait Goal Standby Assistance Front Wheel Walker Gait Distance 150 Other Goals up/down 8 steps R rail ascending CGA Days to Meet Goals 5 Frequency of Treatment Frequency Of Treatment Twice a Day Treatment Plan Physical Therapy Treatment Plan Bed Mobility Training Transfer Training Gait Training Therapeutic Exercise Balance Retraining Post Op Education Discharge Planning Hot or Cold Pack Neuromuscular Re-ed Coordination Retraining Manual Therapy Other Recommendations and Next Treatment ambulation Focus Recommendations To Nursing Amount of Assist Needed 1 Person Assist Discharge Recommendations PT Discharge Recommendations SNF Rehab
[2018-07-18] MEDS: TRAMADOL 50 MG TABLET PO ×3 (11:47→20:33)
--- NOTE | 2018-07-18 14:11 | PT.IPTN ---
Current Diagnoses Unilateral primary osteoarthritis, left knee (07/17/18) Surgery Performed Operation Date: 07/17/18 13:30 Actual Procedures p Total Knee Arthroplasty(Left) - Gabriella Tucker MD Physical Therapy Treatment Note M2 PT-IP Current Condition Start: 07/18/18 12:07 Freq: NEEDED Status: Active Protocol: Document 07/18/18 11:05 AB (Rec: 07/18/18 12:20 AB [id number]) Physical Therapy Current Condition Current Condition Evaluation Date 07/18/18 Treatment Diagnosis s/p L TKA; difficulty in walking Onset Date 07/17/18 Precautions Brace pt uses R thigh wrap/support ( with h/o multiple R femur injuries/surgeries) Other Precautions Falls Weight Bearing Status Weight Bearing Status Weight Bear as Tolerated M3 PT-IP Subjective Start: 07/18/18 12:07 Freq: NEEDED Status: Active Protocol: Document 07/18/18 14:11 AB (Rec: 07/18/18 16:31 AB [id number]) Subjective Physical Therapy Visit Type Type Treatment Note Visit Start Time 14:11 Visit Stop Time 14:36 Total Visit Minutes 25 Number of PICKING CREW SUPERVISOR Visits 0 Physical Therapy Visit Comments Patient Comments pt agreeable to do PT Therapy Pain Assessment Pain When Pain Assessed At Rest Pain Present Pain Present Pain Reported Location Left Knee Scale Used pain scale not stated but stated that it is not comfortable Description Burning Pain Management Techniques Apply Cold Re-positioning Timing of Activity with Medications M4 PT-IP Mobility and Gait Start: 07/18/18 12:07 Freq: NEEDED Status: Active Protocol: Document 07/18/18 14:11 AB (Rec: 07/18/18 16:31 AB [id number]) PT-Bed Mobility Assessment Supine to Sit Supine to Sit Maximum Assistance 1 Person Assistance Sit to Supine Sit to Supine Moderate Assistance 1 Person Assistance PT-Transfer Assessment Sit to and From Stand Sit to and from Stand Minimal Assistance 1 Person Assistance Use of Upper Extremities Equipment Transfer Assistive Device Gait Belt Front Wheeled Walker Orthotic/Prosthetic Devices or Brace: Yes Transfers Transfer Destination Toilet Transfer Technique pt ambulated using FWW Transfer Ability Level of Assist Minimal Assistance 1 Person Assistance Comments Mobility Comments pt requested to use the toilet and ambulated using FWW min A and cues. pt completed sit to stand from the toilet using grab bars min A and cues and ambulated towards the sink using FWW min A and cues and was able to maintain standing balance using fWW for support CGA while completing handwashing. agreed to do more ambulation afterwards. Gait Assessment Gait Gait Assistance Required: Minimum Assistance Distance (Feet) 30 Able to Maintain Weight Bearing Status Yes During Gait Assistive Devices Assistive Device Gait Belt Front Wheeled Walker Orthotic/Prosthetic Devices or Brace: Yes Gait Deviations General Gait Pattern Antalgic Decreased Stride Length Decreased Feet Clearance Factors Limiting Gait Function Factors Limiting Gait Function Decreased Activity Tolerance Decreased Strength Limited Range of Motion Pain Poor Balance M5 PT-IP Objective Assessments Start: 07/18/18 12:07 Freq: NEEDED Status: Active Protocol: Document 07/18/18 11:05 AB (Rec: 07/18/18 12:20 AB [id number]) Orientation Orientation/Cognition Level of Alertness Alert Orientation Name Place Situation Language Function Ability Hard of Hearing Safety Awareness Decreased Safety Awareness Memory Description Short Term Impaired Childcare Attendant Impaired Gross Range of Motion Lower Extremity ROM Assessment Left Impaired Impairments L knee flexion: ~ 60 deg L knee extension: lacking ~ 20 deg to neutral Strength Lower Extremity Strength Assessment Bilaterally Impaired Comments Strength Comments RLE: 4-/5 LLE: 3+/5 Coordination Assessment Gross Coordination Gross Coordination WNL Muscle Tone Muscle Tone WNL Yes M6 PT-IP Treatment Start: 07/18/18 12:07 Freq: NEEDED Status: Active Protocol: Document 07/18/18 14:11 AB (Rec: 07/18/18 16:31 AB [id number]) Physical Therapy Treatment Education Education Provided Weight Bearing Status Safety M7 PT-IP Assessment and Plan Start: 07/18/18 12:07 Freq: NEEDED Status: Active Protocol: Document 07/18/18 14:11 AB (Rec: 07/18/18 16:31 AB [id number]) PT Summary Assessment and Plan Potential Rehabilitation Potential Good Summary Impairments Pain ROM Strength Balance Coordination Sensation Tone Cognition Bed Mobility Transfers Gait Activity Tolerance Progress Towards Goals Slow Progress due to Pain Slow Progress due to Medical Issues Slow Progress due to Activity Tolerance Assessment Summary pt is progressing slowly with mobility and has other medical issues affecting progress. pt continues to require min A with mobility and will need SNF rehab to improve strength and functional independence. Goals Bed Mobility Goal Minimal Assistance Transfer Goal Standby Assistance Front Wheeled Walker Gait Goal Standby Assistance Front Wheel Walker Gait Distance 150 Other Goals up/down 8 steps R rail ascending CGA Days to Meet Goals 5 Frequency of Treatment Frequency Of Treatment Twice a Day Treatment Plan Physical Therapy Treatment Plan Bed Mobility Training Transfer Training Gait Training Therapeutic Exercise Balance Retraining Post Op Education Discharge Planning Hot or Cold Pack Neuromuscular Re-ed Coordination Retraining Manual Therapy Other Recommendations and Next Treatment ambulation Focus Recommendations To Nursing Amount of Assist Needed 1 Person Assist Discharge Recommendations PT Discharge Recommendations SNF Rehab
--- NOTE | 2018-07-18 14:11 | PT.IPTN ---
Current Diagnoses Unilateral primary osteoarthritis, left knee (07/17/18) Surgery Performed Operation Date: 07/17/18 13:30 Actual Procedures p Total Knee Arthroplasty(Left) - Gabriella Tucekr MD Physical Therapy Treatment Note M2 PT-IP Current Condition Start: 07/18/18 12:07 Freq: NEEDED Status: Active Protocol: Document 07/18/18 11:05 AB (Rec: 07/18/18 12:20 AB [id number]) Physical Therapy Current Condition Current Condition Evaluation Date 07/18/18 Treatment Diagnosis s/p L TKA; difficulty in walking Onset Date 07/17/18 Precautions Brace pt uses R thigh wrap/support ( with h/o multiple R femur injuries/surgeries) Other Precautions Falls Weight Bearing Status Weight Bearing Status Weight Bear as Tolerated M3 PT-IP Subjective Start: 07/18/18 12:07 Freq: NEEDED Status: Active Protocol: Document 07/18/18 14:11 AB (Rec: 07/18/18 16:31 AB [id number]) Subjective Physical Therapy Visit Type Type Treatment Note Visit Start Time 14:11 Visit Stop Time 14:36 Total Visit Minutes 25 Number of PATIENT ACCOUNTS SPECIALIST Visits 0 Physical Therapy Visit Comments Patient Comments pt agreeable to do PT Therapy Pain Assessment Pain When Pain Assessed At Rest Pain Present Pain Present Pain Reported Location Left Knee Scale Used pain scale not stated but stated that it is not comfortable Description Burning Pain Management Techniques Apply Cold Re-positioning Timing of Activity with Medications M4 PT-IP Mobility and Gait Start: 07/18/18 12:07 Freq: NEEDED Status: Active Protocol: Document 07/18/18 14:11 AB (Rec: 07/18/18 16:31 AB [id number]) PT-Bed Mobility Assessment Supine to Sit Supine to Sit Maximum Assistance 1 Person Assistance Sit to Supine Sit to Supine Moderate Assistance 1 Person Assistance PT-Transfer Assessment Sit to and From Stand Sit to and from Stand Minimal Assistance 1 Person Assistance Use of Upper Extremities Equipment Transfer Assistive Device Gait Belt Front Wheeled Walker Orthotic/Prosthetic Devices or Brace: Yes Transfers Transfer Destination Toilet Transfer Technique pt ambulated using FWW Transfer Ability Level of Assist Minimal Assistance 1 Person Assistance Comments Mobility Comments pt requested to use the toilet and ambulated using FWW min A and cues. pt completed sit to stand from the toilet using grab bars min A and cues and ambulated towards the sink using FWW min A and cues and was able to maintain standing balance using fWW for support CGA while completing handwashing. agreed to do more ambulation afterwards. Gait Assessment Gait Gait Assistance Required: Minimum Assistance Distance (Feet) 30 Able to Maintain Weight Bearing Status Yes During Gait Assistive Devices Assistive Device Gait Belt Front Wheeled Walker Orthotic/Prosthetic Devices or Brace: Yes Gait Deviations General Gait Pattern Antalgic Decreased Stride Length Decreased Feet Clearance Factors Limiting Gait Function Factors Limiting Gait Function Decreased Activity Tolerance Decreased Strength Limited Range of Motion Pain Poor Balance M5 PT-IP Objective Assessments Start: 07/18/18 12:07 Freq: NEEDED Status: Active Protocol: Document 07/18/18 11:05 AB (Rec: 07/18/18 12:20 AB [id number]) Orientation Orientation/Cognition Level of Alertness Alert Orientation Name Place Situation Language Function Ability Hard of Hearing Safety Awareness Decreased Safety Awareness Memory Description 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 Gross Range of Motion Lower Extremity ROM Assessment Left Impaired Impairments L knee flexion: ~ 60 deg L knee extension: lacking ~ 20 deg to neutral Strength Lower Extremity Strength Assessment Bilaterally Impaired Comments Strength Comments RLE: 4-/5 LLE: 3+/5 Coordination Assessment Gross Coordination Gross Coordination WNL Muscle Tone Muscle Tone WNL Yes M6 PT-IP Treatment Start: 07/18/18 12:07 Freq: NEEDED Status: Active Protocol: Document 07/18/18 14:11 AB (Rec: 07/18/18 16:31 AB [id number]) Physical Therapy Treatment Education Education Provided Weight Bearing Status Safety M7 PT-IP Assessment and Plan Start: 07/18/18 12:07 Freq: NEEDED Status: Active Protocol: Document 07/18/18 14:11 AB (Rec: 07/18/18 16:31 AB [id number]) PT Summary Assessment and Plan Potential Rehabilitation Potential Good Summary Impairments Pain ROM Strength Balance Coordination Sensation Tone Cognition Bed Mobility Transfers Gait Activity Tolerance Progress Towards Goals Slow Progress due to Pain Slow Progress due to Medical Issues Slow Progress due to Activity Tolerance Assessment Summary pt is progressing slowly with mobility and has other medical issues affecting progress. pt continues to require min A with mobility and will need SNF rehab to improve strength and functional independence. Goals Bed Mobility Goal Minimal Assistance Transfer Goal Standby Assistance Front Wheeled Walker Gait Goal Standby Assistance Front Wheel Walker Gait Distance 150 Other Goals up/down 8 steps R rail ascending CGA Days to Meet Goals 5 Frequency of Treatment Frequency Of Treatment Twice a Day Treatment Plan Physical Therapy Treatment Plan Bed Mobility Training Transfer Training Gait Training Therapeutic Exercise Balance Retraining Post Op Education Discharge Planning Hot or Cold Pack Neuromuscular Re-ed Coordination Retraining Manual Therapy Other Recommendations and Next Treatment ambulation Focus Recommendations To Nursing Amount of Assist Needed 1 Person Assist Discharge Recommendations PT Discharge Recommendations SNF Rehab
[2018-07-18 15:20] VITALS: BP 121/58; PULSE 58; RESP 17; TEMP 36.4; O2SAT 97
--- NOTE | 2018-07-18 16:11 | CM.DPNOTE ---
Referral sent to [facility] per pt's request. [facility] has accepted pt for admission upon medical clearance. Pt is an inpt as of 07.17.18. Following closely. ASCENCION Rodriguez
[2018-07-18 19:40] VITALS: BP 137/62; PULSE 80; RESP 18; TEMP 37.4; O2SAT 97
[2018-07-18] MEDS: hydrOXYzine pamoate 25 MG CAPSULE PO (20:33)
[2018-07-18] MEDS: MELOXICAM 7.5 MG TABLET 15 MG PO (20:34)
[2018-07-18] MEDS: SERTRALINE 25 MG TABLET PO (20:35)
[2018-07-18 23:15] VITALS: BP 145/76; PULSE 75; RESP 18; TEMP 36.8; O2SAT 96
[2018-07-19] MEDS: TRAMADOL 50 MG TABLET PO ×5 (03:01→21:56)
[2018-07-19] MEDS: hydrOXYzine pamoate 25 MG CAPSULE PO ×2 (03:02→20:52)
[2018-07-19 03:20] VITALS: BP 154/68; PULSE 75; RESP 16; TEMP 36.6; O2SAT 94
--- NOTE | 2018-07-19 08:06 | PM.PNPO.1 ---
Subjective Date Patient Seen: 07/19/18 Time Patient Seen: 08:06 Interval history: 83 year old female who is POD#2 s/p right total knee arthroplasty with Dr. Tucker. Patient has been up with PT in the room and to the commode. She is complaining of increased soreness today, but is still well controlled with Tramadol. She was able to have a bowel movement yesterday. She denies any chest pain, shortness of breath or calf tenderness. Exam Vital Signs (past 8 hours): - 07/19/18 03:20 Temperature 97.9 F Pulse Rate 75 Respiratory Rate 16 Blood Pressure 154/68 H Pulse Oximetry 94 Oxygen Delivery Method Room Air Oxygen Flow Rate 0 Narrative Exam Narrative: 83 year old female resting in bed in no acute distress. Alert and oriented. Dressing in place over right knee is clean, dry, and intact with no shadow drainage. Calves are soft and nontender bilaterally. Distal sensation intact with 2+ distal pulses. Objective Labs Result Diagrams: 07/18/18 05:43 Assessment & Plan Post-op Postoperative Procedures Operation Date: 07/17/18 13:30 Actual Procedures Side Surgeon p Total Knee Arthroplasty Left Gabriella Angy Tucker MD Patient has been slow to mobilize with PT, though is making progress. She has a complicated orthopedic history which has slowed her recovery. She should continue today to attempt PT today. Continue pain control. Likely discharge to SNF tomorrow.
--- NOTE | 2018-07-19 08:09 | P.PN_ITS ---
Subjective Date Patient Seen: 07/19/18 Time Patient Seen: 08:06 Interval history: 83 year old female who is POD#2 s/p right total knee arthroplasty with Dr. Tucker. Patient has been up with PT in the room and to the commode. She is complaining of increased soreness today, but is still well c ontrolled with Tramadol. She was able to have a bowel movement yesterday. She denies any chest pain, shortness of breath or calf tenderness. Exam Vital Signs (past 8 hours): - 07/19/18 03:20 Temperature 97.9 F Pulse Rate 75 Respiratory Rate 16 Blood Pressure 154/68 H Pulse Oximetry 94 Oxygen Delivery Method Room Air Oxygen Flow Rate 0 Narrative Exam Narrative: 83 year old female resting in bed in no acute distress. Alert and oriented. Dressing in place over right knee is clean, dry, and intact with no shadow drainage. Calves are soft and nontender bilaterally. Distal sensation intact with 2+ distal pulses. Objective Labs Result Diagrams: 07/18/18 05:43 Assessment & Plan Post-op Postoperative Procedures Operation Date: 07/17/18 13:30 Actual Procedures Side Surgeon p Total Knee Arthroplasty Left Gabriella Angy Tucker MD Patient has been slow to mobilize with PT, though is making progress. She has a complicated orthopedic history which has slowed her recovery. She should contin ue today to attempt PT today. Continue pain control. Likely discharge to SNF tomorrow.
[2018-07-19] MEDS: ACETAMINOPHEN 325 MG TABLET 975 MG PO ×3 (08:10→20:51)
[2018-07-19] MEDS: ASPIRIN EC 81 MG TABLET PO ×2 (08:12→20:52)
[2018-07-19] MEDS: DOCUSATE 100 MG CAPSULE PO ×2 (08:12→20:51)
[2018-07-19] MEDS: PANTOPRAZOLE 20 MG TABLET PO ×2 (08:12→20:52)
[2018-07-19] MEDS: PREGABALIN 50 MG CAPSULE 200 MG PO ×2 (08:13→20:51)
[2018-07-19] MEDS: GABAPENTIN 600 MG TABLET PO ×2 (08:13→20:51)
[2018-07-19] MEDS: SODIUM CHLORIDE 0.9% FLUSH 10 ML IV ×2 (08:14→20:52)
[2018-07-19 09:20] VITALS: BP 127/63; PULSE 77; RESP 16; TEMP 36.4; O2SAT 94
--- NOTE | 2018-07-19 12:07 | PT.IPTN ---
Current Diagnoses Unilateral primary osteoarthritis, left knee (07/17/18) Surgery Performed Operation Date: 07/17/18 13:30 Actual Procedures p Total Knee Arthroplasty(Left) - Gabriella Tucker MD Physical Therapy Treatment Note M2 PT-IP Current Condition Start: 07/18/18 12:07 Freq: NEEDED Status: Active Protocol: Document 07/18/18 11:05 AB (Rec: 07/18/18 12:20 AB [id number]) Physical Therapy Current Condition Current Condition Evaluation Date 07/18/18 Treatment Diagnosis s/p L TKA; difficulty in walking Onset Date 07/17/18 Precautions Brace pt uses R thigh wrap/support ( with h/o multiple R femur injuries/surgeries) Other Precautions Falls Weight Bearing Status Weight Bearing Status Weight Bear as Tolerated M3 PT-IP Subjective Start: 07/18/18 12:07 Freq: NEEDED Status: Active Protocol: Document 07/19/18 11:59 SA (Rec: 07/19/18 12:07 SA [email or web address]) Subjective Physical Therapy Visit Type Type Treatment Note Visit Start Time 11:10 Visit Stop Time 11:46 Total Visit Minutes 36 Number of FOLDED TOWEL MACHINE OPERATOR Visits 1 Physical Therapy Visit Comments Patient Comments Pt in bed and wanting to go to bathroom. Patient Goals Plans to d/c to [facility] prior to d /c home. Therapy Pain Assessment Pain When Pain Assessed During Mobility Pain Present Pain Present Pain Reported Location Left Knee Intensity 4 Scale Used Numeric (1 - 10) Description Acute Pain Management Techniques Apply Cold Re-positioning Timing of Activity with Medications M4 PT-IP Mobility and Gait Start: 07/18/18 12:07 Freq: NEEDED Status: Active Protocol: Document 07/19/18 11:59 SA (Rec: 07/19/18 12:07 SA [email or web address]) PT-Bed Mobility Assessment Rolling Type of Rolling Roll to Right Level of Assist Contact Guard Assistance Supine to Sit Supine to Sit Minimal Assistance 1 Person Assistance Scooting Scooting to Edge of Bed Contact Guard Assistance Scooting Up and Down in Bed Contact Guard Assistance PT-Transfer Assessment Sit to and From Stand Sit to and from Stand Contact Guard Assistance 1 Person Assistance Use of Upper Extremities Equipment Transfer Assistive Device Gait Belt Front Wheeled Walker Orthotic/Prosthetic Devices or Brace: Yes Transfers Transfer Destination Chair Toilet Transfer Technique Stand Step Pivot Transfer Ability Level of Assist Contact Guard Assistance 1 Person Assistance Comments Mobility Comments Pt completed stand pivot txs on/off toilet with CGA, stood at sink x 6 min for ADLs with SBA. Sit to stands ftom EOB and Chair with CGA and min cues. Gait Assessment Gait Gait Assistance Required: Contact Guard Assist Minimum Assistance 1 Person Assist Distance (Feet) 45 Able to Maintain Weight Bearing Status Yes During Gait Assistive Devices Assistive Device Gait Belt Front Wheeled Walker Orthotic/Prosthetic Devices or Brace: Yes Gait Deviations General Gait Pattern Antalgic Decreased Stride Length Decreased Feet Clearance Factors Limiting Gait Function Factors Limiting Gait Function Decreased Activity Tolerance Decreased Strength Limited Range of Motion Pain Comments Gait Comments Gait training in room/manuel with short step lengths and limited WBing through LLE, pt able to partially correct with cues. PT-Balance Assessment Sitting Balance and Reactions Static Sitting Balance Ability Good Dynamic Sitting Balance Ability Good Comments Other Balance Tests/Deviations/Treatment Standing balance during sink : side ADLs, pt increasing WBing through LLE with tasks, SBA provided. 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 Gross Range of Motion Lower Extremity ROM Assessment Left Impaired Impairments L knee flexion: ~ 60 deg L knee extension: lacking ~ 20 deg to neutral Strength Lower Extremity Strength Assessment Bilaterally Impaired Comments Strength Comments RLE: 4-/5 LLE: 3+/5 Coordination Assessment Gross Coordination Gross Coordination WNL Muscle Tone Muscle Tone WNL Yes M6 PT-IP Treatment Start: 07/18/18 12:07 Freq: NEEDED Status: Active Protocol: Document 07/19/18 11:59 SA (Rec: 07/19/18 12:07 [email or web address]) Physical Therapy Treatment Exercises Exercises Ankle Pumps Gluteal Sets Quad Sets Heel Slides Education Education Provided Post-Op Packet Safety M7 PT-IP Assessment and Plan Start: 07/18/18 12:07 Freq: NEEDED Status: Active Protocol: Document 07/19/18 11:59 SA (Rec: 07/19/18 12:07 SA [email or web address]) PT Summary Assessment and Plan Potential Rehabilitation Potential Good Summary Impairments Pain ROM Strength Balance Coordination Sensation Tone Cognition Bed Mobility Transfers Gait Activity Tolerance Assessment Summary Pt progressing with bed mobility, transfers and gait. Pain limits activity but pt is making gradual gains, will benefit from continued PT at SNF prior to d/c home. Frequency of Treatment Frequency Of Treatment Twice a Day Treatment Plan Physical Therapy Treatment Plan Bed Mobility Training Transfer Training Gait Training Therapeutic Exercise Balance Retraining Post Op Education Discharge Planning Hot or Cold Pack Neuromuscular Re-ed Coordination Retraining Manual Therapy Other Recommendations and Next Treatment ambulation Focus Recommendations To Nursing Amount of Assist Needed 1 Person Assist Discharge Recommendations PT Discharge Recommendations SNF Rehab
[2018-07-19] MEDS: MAGNESIUM HYDROXIDE 30 ML UDC PO (12:22)
[2018-07-19 13:40] VITALS: BP 149/63; PULSE 76; RESP 16; TEMP 36.5; O2SAT 95
--- NOTE | 2018-07-19 15:50 | PT.IPTN ---
Current Diagnoses Unilateral primary osteoarthritis, left knee (07/17/18) Surgery Performed Operation Date: 07/17/18 13:30 Actual Procedures p Total Knee Arthroplasty(Left) - Gabriella Tucker MD Physical Therapy Treatment Note M2 PT-IP Current Condition Start: 07/18/18 12:07 Freq: NEEDED Status: Active Protocol: Document 07/18/18 11:05 AB (Rec: 07/18/18 12:20 AB [id number]) Physical Therapy Current Condition Current Condition Evaluation Date 07/18/18 Treatment Diagnosis s/p L TKA; difficulty in walking Onset Date 07/17/18 Precautions Brace pt uses R thigh wrap/support ( with h/o multiple R femur injuries/surgeries) Other Precautions Falls Weight Bearing Status Weight Bearing Status Weight Bear as Tolerated M3 PT-IP Subjective Start: 07/18/18 12:07 Freq: NEEDED Status: Active Protocol: Document 07/19/18 15:43 SA (Rec: 07/19/18 15:50 SA [email or web address]) Subjective Physical Therapy Visit Type Type Treatment Note Visit Start Time 14:38 Visit Stop Time 15:00 Total Visit Minutes 22 Number of NETEZZA DEVELOPER Visits 2 Physical Therapy Visit Comments Patient Comments Pt agreeable to PT this afternoon. Patient Goals Plans to d/c to [facility] prior to d /c home. Therapy Pain Assessment Pain When Pain Assessed During Mobility Pain Present Pain Present Pain Reported Location Left Knee Intensity 5 Scale Used Numeric (1 - 10) Description Acute Pain Management Techniques Apply Cold Re-positioning Timing of Activity with Medications M4 PT-IP Mobility and Gait Start: 07/18/18 12:07 Freq: NEEDED Status: Active Protocol: Document 07/19/18 15:43 SA (Rec: 07/19/18 15:50 SA [email or web address]) PT-Bed Mobility Assessment Rolling Type of Rolling Roll to Right Level of Assist Standby Assistance Supine to Sit Supine to Sit Contact Guard Assistance 1 Person Assistance Sit to Supine Sit to Supine Minimal Assistance 1 Person Assistance Scooting Scooting to Edge of Bed Contact Guard Assistance Scooting Up and Down in Bed Contact Guard Assistance PT-Transfer Assessment Sit to and From Stand Sit to and from Stand Contact Guard Assistance 1 Person Assistance Use of Upper Extremities Equipment Transfer Assistive Device Gait Belt Front Wheeled Walker Orthotic/Prosthetic Devices or Brace: Yes Transfers Transfer Destination Bed Toilet Transfer Ability Level of Assist Contact Guard Assistance 1 Person Assistance Comments Mobility Comments Pt able to clear LEs over EOB for sup>sit but required Min A for sit to supine. CGA with most bed mobility and transfers. Gait Assessment Gait Gait Assistance Required: Contact Guard Assist 1 Person Assist Distance (Feet) 85 Able to Maintain Weight Bearing Status Yes During Gait Assistive Devices Assistive Device Gait Belt Front Wheeled Walker Orthotic/Prosthetic Devices or Brace: Yes Gait Deviations General Gait Pattern Antalgic Decreased Stride Length Decreased Feet Clearance Factors Limiting Gait Function Factors Limiting Gait Function Decreased Activity Tolerance Decreased Strength Limited Range of Motion Pain Comments Gait Comments Pt tolerated increased gait distance and improving EBing through LLE. Increased pain this afternoon. 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 Gross Range of Motion Lower Extremity ROM Assessment Left Impaired Impairments L knee flexion: ~ 60 deg L knee extension: lacking ~ 20 deg to neutral Strength Lower Extremity Strength Assessment Bilaterally Impaired Comments Strength Comments RLE: 4-/5 LLE: 3+/5 Coordination Assessment Gross Coordination Gross Coordination WNL Muscle Tone Muscle Tone WNL Yes M6 PT-IP Treatment Start: 07/18/18 12:07 Freq: NEEDED Status: Active Protocol: Document 07/19/18 15:43 SA (Rec: 07/19/18 15:50 [email or web address]) Physical Therapy Treatment Exercises Exercises Ankle Pumps Gluteal Sets Quad Sets Heel Slides Education Education Provided Post-Op Packet Safety M7 PT-IP Assessment and Plan Start: 07/18/18 12:07 Freq: NEEDED Status: Active Protocol: Document 07/19/18 15:43 SA (Rec: 07/19/18 15:50 [email or web address]) PT Summary Assessment and Plan Potential Rehabilitation Potential Good Summary Impairments Pain ROM Strength Balance Coordination Sensation Tone Cognition Bed Mobility Transfers Gait Activity Tolerance Assessment Summary Pt progressing with mobility but pain still limiting activity tolerance, probable d /c to [facility] tomorrow for continued therapy. Frequency of Treatment Frequency Of Treatment Twice a Day Treatment Plan Physical Therapy Treatment Plan Bed Mobility Training Transfer Training Gait Training Therapeutic Exercise Balance Retraining Post Op Education Discharge Planning Hot or Cold Pack Neuromuscular Re-ed Coordination Retraining Manual Therapy Recommendations To Nursing Amount of Assist Needed 1 Person Assist Discharge Recommendations PT Discharge Recommendations SNF Rehab
[2018-07-19 16:00] VITALS: BP 144/85; PULSE 78; RESP 16; TEMP 36.7; O2SAT 95
[2018-07-19] MEDS: MELOXICAM 7.5 MG TABLET 15 MG PO (20:51)
[2018-07-19] MEDS: SERTRALINE 25 MG TABLET PO (20:52)
[2018-07-19] MEDS: HYDROCODONE/ACET 5/325 TABLET 2 TAB PO (21:57)
[2018-07-20 01:25] VITALS: BP 129/61; PULSE 76; RESP 16; TEMP 36.4; O2SAT 93
[2018-07-20 05:00] VITALS: BP 121/59; PULSE 67; RESP 16; TEMP 36.9; O2SAT 97
--- NOTE | 2018-07-20 07:52 | PM.DS.1 ---
History of Present Illness Date Patient Seen: 07/20/18 Chief complaint: 35113 Narrative: Patient is seen bedside status post left TKA postop day 3. She complains of overnight cramping in the postoperative leg. It has since resolved. She denies chest pain shortness of breath nausea vomiting. She is ready to go to [facility] today. Discharge Providers Date of admission: 07/17/18 11:19 Discharge Date: 07/20/18 Consults: 07/17/18 06:00 Consult to Anesthesiology Routine Comment: Consulting Provider: Anesthesiologist Reason for consultation: Regional block for post operative pain control Has provider been notified: Yes 07/17/18 16:40 Consult to Discharge Planning Routine Comment: Consult to Physical Therapy Evaluate & Treat Comment: Physician Instructions: postop TKA protocol Consult to Respiratory Therapy Evaluate & Treat Comment: Physician Instructions: Evaluate and treat Discharge provider: Sonam Silva PA-C Summary Discharge Diagnosis: Left knee osteoarthritis Hospital Course: Patient admitted to the hospital s/p L. TKA with Dr. Tucker on 07/17/18. Patient tolerated the procedure well with no major complications. They were transferred to the acute care floor where they were placed on the standard joint replacement pathway and protocol. They were seen by physical therapy who recommended that they be discharged to a subacute rehab facility. They were stable and ready for discharge on 07/20/18. Status at Discharge Cognitive/behavioral status at discharge: oriented Functional status at discharge: uses cane/walker Overall status at discharge: patient is progressing back to baseline Time Spent with Patient Less than 30 minutes Exam Vital Signs (past 8 hours): - 07/20/18 01:25 07/20/18 05:00 Temperature 97.6 F 98.5 F Pulse Rate 76 67 Respiratory Rate 16 16 Blood Pressure 129/61 121/59 L Pulse Oximetry 93 97 Oxygen Delivery Method Room Air Oxygen Flow Rate 0 Narrative Exam Narrative: Well-developed, well-nourished, no acute distress. Alert and oriented to person, place, and time. Dressing on operative knee is clean, dry, and intact with no signs of drainage. Minimal erythema and generalized swelling around the surgical site. Neurovascularly intact in operative extremity with a soft and compressible calf. Range of motion of the operative ankle intact. Objective Labs Result Diagrams: 07/18/18 05:43 Discharge Plan Discharge Plan Patient Disposition: SNF Transfer to: [facility] Under care of provider: facility provider I certify the postop hospital half-way care is medically necessary on a continuing basis for any conditions for which he/ she received care during this hospitalization.: Yes The receiving facility has agreed to accept transfer and provide medical treatment.: Yes Discharge Med Rec/Prescriptions Prescriptions: New acetaminophen 325 mg Tablet 975 mg PO TID Qty: 0 RF: 0 polyethylene glycol 3350 17 gram Powder In Packet 17 gm PO DAILY PRN (Reason: Constipation) Qty: 0 RF: 0 aspirin 81 mg Tablet,Delayed Release (Dr/Ec) 81 mg PO BID Qty: 0 RF: 0 pantoprazole 20 mg Tablet,Delayed Release (Dr/Ec) 20 mg PO BID Qty: 0 RF: 0 magnesium hydroxide [Milk of Magnesia] 400 mg/5 mL Suspension 30 ml PO DAILY PRN (Reason: Constipation) Qty: 0 RF: 0 docusate sodium 100 mg Capsule 100 mg PO BID Qty: 0 RF: 0 hydroxyzine pamoate 25 mg Capsule 25 mg PO Q6H PRN (Reason: Nausea) Qty: 0 RF: 0 hydrocodone-acetaminophen 5-325 mg tablet 1 tab PO Q4-6H PRN (Reason: pain) Qty: 12 RF: 0 Continued gabapentin 600 mg Tablet 600 mg PO BID RF: 0 Lyrica 200 mg Capsule 200 mg PO BID RF: 0 meloxicam 15 mg Tablet 15 mg PO BEDTIME RF: 0 sertraline 25 mg Tablet 25 mg PO BEDTIME RF: 0 tramadol 50 mg tablet 50 mg PO TID PRN (Reason: pain) Qty: 60 RF: 1 Follow up/Referrals: Gabriella Tucker MD [Physician] - (Follow up in 5-7 days at your previously scheduled post-op appointment.) Discharge Health Status Precautions: [place] Provider Discharge Instructions Diet: Diet as Tolerated Activity: Weightbearing as tolerated, use walker until cleared by physical therapy. Elevate operative leg regularly to reduce swelling. Cold/Heat Therapy: Apply ice to affected area for 20 minutes at a time at least hourly while awake. Skin/Wound/Dressing Care Report to your healthcare provider any signs of infection, such as:: chills, fever, night sweats, increased pain, unusual drainage and unusual redness Dressing: Keep dressing clean, dry, and intact. May shower with it in place but no soaking. Special Rehabilitation Services Reason for rehabilitation: Post-operative therapy Rehab type: Physical therapy and Occupational therapy Visit Report/Discharge Packet Instructions: DI for Knee Replacement Stand Alone Forms: Surgery Discharge Discharge Data Attending Provider: Gabriella Tucker Admit Date/Time: 07/17/18 11:19
[2018-07-20] MEDS: DOCUSATE 100 MG CAPSULE PO (08:58)
[2018-07-20] MEDS: GABAPENTIN 600 MG TABLET PO (08:58)
[2018-07-20] MEDS: SODIUM CHLORIDE 0.9% FLUSH 10 ML IV (08:59)
[2018-07-20] MEDS: PANTOPRAZOLE 20 MG TABLET PO (08:59)
[2018-07-20] MEDS: PREGABALIN 50 MG CAPSULE 200 MG PO (08:59)
[2018-07-20] MEDS: ASPIRIN EC 81 MG TABLET PO (08:59)
[2018-07-20] MEDS: ACETAMINOPHEN 325 MG TABLET 975 MG PO (08:59)
[2018-07-20 09:00] VITALS: BP 140/63; PULSE 76; RESP 16; TEMP 36.2; O2SAT 97
[2018-07-20] MEDS: TRAMADOL 50 MG TABLET PO ×2 (09:02→12:36)
--- NOTE | 2018-07-20 11:00 | PT.IPTN ---
Current Diagnoses Unilateral primary osteoarthritis, left knee (07/17/18) Surgery Performed Operation Date: 07/17/18 13:30 Actual Procedures p Total Knee Arthroplasty(Left) - Gabriella Tucker MD Physical Therapy Treatment Note M2 PT-IP Current Condition Start: 07/18/18 12:07 Freq: NEEDED Status: Active Protocol: Document 07/18/18 11:05 AB (Rec: 07/18/18 12:20 AB [id number]) Physical Therapy Current Condition Current Condition Evaluation Date 07/18/18 Treatment Diagnosis s/p L TKA; difficulty in walking Onset Date 07/17/18 Precautions Brace pt uses R thigh wrap/support ( with h/o multiple R femur injuries/surgeries) Other Precautions Falls Weight Bearing Status Weight Bearing Status Weight Bear as Tolerated M3 PT-IP Subjective Start: 07/18/18 12:07 Freq: NEEDED Status: Active Protocol: Document 07/20/18 11:00 GGD (Rec: 07/20/18 11:47 GGD [id number]) Subjective Physical Therapy Visit Type Type Treatment Note Visit Start Time 10:35 Visit Stop Time 11:00 Total Visit Minutes 25 Number of PHOTOENGRAVING FINISHER Visits 3 Physical Therapy Visit Comments Patient Comments Pt states she would like to return to bed. Therapy Pain Assessment Pain When Pain Assessed During Mobility Pain Present Pain Present Pain Reported Location Left Knee Intensity 4 Scale Used Numeric (1 - 10) Description Acute Pain Management Techniques Apply Cold Re-positioning Timing of Activity with Medications M4 PT-IP Mobility and Gait Start: 07/18/18 12:07 Freq: NEEDED Status: Active Protocol: Document 07/20/18 11:00 GGD (Rec: 07/20/18 11:47 GGD [id number]) PT-Bed Mobility Assessment Sit to Supine Sit to Supine Minimal Assistance 1 Person Assistance Scooting Scooting to Edge of Bed Independent Scooting Up and Down in Bed Independent PT-Transfer Assessment Sit to and From Stand Sit to and from Stand Contact Guard Assistance 1 Person Assistance Use of Upper Extremities Equipment Transfer Assistive Device Gait Belt Front Wheeled Walker Orthotic/Prosthetic Devices or Brace: Yes Transfers Transfer Destination Bed Transfer Ability Level of Assist Contact Guard Assistance 1 Person Assistance Gait Assessment Gait Gait Assistance Required: Contact Guard Assist 1 Person Assist Distance (Feet) 60 Able to Maintain Weight Bearing Status Yes During Gait Assistive Devices Assistive Device Gait Belt Front Wheeled Walker Orthotic/Prosthetic Devices or Brace: Yes Gait Deviations General Gait Pattern Antalgic Decreased Stride Length Decreased Feet Clearance Factors Limiting Gait Function Factors Limiting Gait Function Decreased Activity Tolerance Decreased Strength Limited Range of Motion Pain Comments Gait Comments Pt needed standing rest breaks due to UE fatigue. She did need cues for flat foot weight bearing with gait. M5 PT-IP Objective Assessments Start: 07/18/18 12:07 Freq: NEEDED Status: Active Protocol: Document 07/18/18 11:05 AB (Rec: 07/18/18 12:20 AB [id number]) Orientation Orientation/Cognition Level of Alertness Alert Orientation Name Place Situation Language Function Ability Hard of Hearing Safety Awareness Decreased Safety Awareness Memory Description Short Term Impaired [facility] Impaired Gross Range of Motion Lower Extremity ROM Assessment Left Impaired Impairments L knee flexion: ~ 60 deg L knee extension: lacking ~ 20 deg to neutral Strength Lower Extremity Strength Assessment Bilaterally Impaired Comments Strength Comments RLE: 4-/5 LLE: 3+/5 Coordination Assessment Gross Coordination Gross Coordination WNL Muscle Tone Muscle Tone WNL Yes M6 PT-IP Treatment Start: 07/18/18 12:07 Freq: NEEDED Status: Active Protocol: Document 07/20/18 11:00 GGD (Rec: 07/20/18 11:47 GGD [id number]) Physical Therapy Treatment Exercises Exercises Ankle Pumps Gluteal Sets Quad Sets Heel Slides Education Education Provided Post-Op Packet Safety M7 PT-IP Assessment and Plan Start: 07/18/18 12:07 Freq: NEEDED Status: Active Protocol: Document 07/20/18 11:00 GGD (Rec: 07/20/18 11:47 GGD [id number]) PT Summary Assessment and Plan Summary Assessment Summary Pt improving slowly. she needed decrease assist with bed mobility. She had limit tolerance to gait and increase in pain . Frequency of Treatment Frequency Of Treatment Twice a Day Treatment Plan Physical Therapy Treatment Plan Bed Mobility Training Transfer Training Gait Training Therapeutic Exercise Balance Retraining Post Op Education Discharge Planning Hot or Cold Pack Neuromuscular Re-ed Coordination Retraining Manual Therapy Recommendations To Nursing Amount of Assist Needed 1 Person Assist Discharge Recommendations PT Discharge Recommendations SNF Rehab
--- NOTE | 2018-07-20 13:09 | PC.NURSE ---
Krystyna is stable and anticipating disch. to [facility] later this PM. Her aqualcel L knee drsg. is clean/dry/intact. Neurovas. assessment WDL. She is able to get up using walker and GB with PT and nursing. She is voiding.
--- NOTE | 2018-07-20 13:12 | PC.NURSE ---
Report called to SHREYA Saucdea, at [facility]. Questions answered.
--- NOTE | 2018-07-20 13:51 | CM.IDA ---
Initial DCP Assessment Note: Pt is an 83 yo female, resident of [place]. Pt is POD#3 today from left knee surgery w/ Dr Tucker, she is eager to DC to [facility]. Payer: Medicare/ [employer]. Met w/pt this morning, updated her that [facility] was prepared for her admission to and pt said she felt very relieved. Pt lives alone, she is mostly indp and active at her baseline. She lives in a manufactured home in a [place] community in [place]. Pt feels grateful to have her dtr live so close, dtr assists w/errands and shopping as needed, dtr does work certified hyperbaric technologist as a teacher. Pt hires someone to help her w/house cleaning every month. Pt has h/o multiple joint replacements, she has spent time at [facility] and also has had a cg through [facility] that she trusts and would hire again if needed. Pt hopes to be strong enough to return home in one-two weeks from [facility]. Requested that Grief Counsellor, Mireya, assist in the coordination of this DC to [facility]. All DC ppk faxed to include LEONARD, p/u arranged for [phone], RN and pt notified. P: DC to [facility] via w/c today. ASCENCION Rodriguez
== END 2018-07-20 13:35 | DRG 470 ==
PROVIDERS: Admitting Provider Orthopaedic Surgery; Visit Provider Orthopaedic Surgery
PROC: 0SRD0JZ Replacement of Left Knee Joint with Synthetic Substitute, Open Approach (ICD-10-PCS; CPT 27447; principal; 2018-07-17 13:30)
DX: M17.12 Unilateral primary osteoarthritis, left knee (principal); G50.0 Trigeminal neuralgia; G25.81 Restless legs syndrome; Z96.651 Presence of right artificial knee joint; Z87.891 Personal history of nicotine dependence; R25.2 Cramp and spasm
CPT/HCPCS: 36415; 73560; 85014; 85018; 94762; 97116; 97161; 97530; C1776; C9290; J0690; J1100; J2250; J2274; J2300; J2405; J2704; J2765; J3010; J3370

== ENCOUNTER → 2019-01-31 14:49 | Outpatient (CLI) | payer MEDICARE, OTHER, SELFPAY ==
[2018-07-17 12:19] VITALS: BMI 27.2
[2019-01-31 15:30] LABS: Add Manual Diff / Slide Review NO; Basophils Absolute Auto 0 /uL (0-100); Basophils Percent Auto 0.5 % (0-2); Eosinophils Absolute Auto 100 /uL (0-450); Eosinophils Percent Auto 2.4 % (2-4); Hematocrit 36.9 % (36-46); Hemoglobin 12.2 g/dL (12.0-16.0); Lymphocytes Absolute Auto 1900 /uL (1100-4500); Mean Corpuscular HGB Conc 33.2 % (30-36); Mean Corpuscular Hemoglobin 27.8 PG (26-34); Mean Corpuscular Volume 83.8 fL (80-100); Monocytes Absolute Auto 500 /uL (0-900); Monocytes Percent Auto 7.9 % (3-14); Neutrophils Absolute Auto 3500 /uL (1500-7000); Neutrophils Percent Auto 57.2 % (50-75); Platelet Count 215 X10^3/uL (150-400); Red Blood Cell Count 4.41 X10^6/uL (4.0-5.2); Red Cell Distribution Width 15.2 % (11.6-14.8)
[2019-01-31 15:50] LABS: Alanine Aminotransferase 12 IU/L (<35); Albumin 3.9 g/dL (3.5-5.0); Albumin Globulin Ratio 1.3 (1.0-2.8); Alkaline Phosphatase 44 U/L (38-126); Aspartate Aminotransferase 24 IU/L (14-36); Bilirubin Total 0.6 mg/dL (0.2-1.3); Bilirubin Unconjugated 0.3 mg/dL (0.0-1.1); Globulin 2.9 g/dL (1.7-4.1); HEMOLYSIS < 15 (0-50); Total Protein 6.8 g/dL (6.3-8.2)
== END ==
PROVIDERS: PCP Physician Assistant; Visit Provider Podiatrist
DX: B35.1 Tinea unguium (principal)
CPT/HCPCS: 36415; 80076; 85025

== ENCOUNTER 2019-04-04 12:32 | Outpatient (CLI) | payer MEDICARE, OTHER, SELFPAY ==
[2018-07-17 12:19] VITALS: BMI 27.2
[2019-04-04] VITALS (10 sets, daily range): BP systolic 125–174; BP diastolic 61–109; PULSE 64–76; RESP 16–18; TEMP 36.5; O2SAT 96–100
--- NOTE | 2019-04-04 12:34 | DI.RAD.S_ITS ---
PROCEDURE: PAIN L/S FACET INJ/BLK 1ST DWAYNE COMPARISON: None. INDICATIONS: SPONDYLOSIS FINDINGS: 6 intraoperative fluoroscopy images demonstrate needle placement at L5 and S1. IMPRESSION: Fluoroscopy guidance for needle placement. Dictated by: Jeffery Summers M.D. on 04/04/2019 at 15:46 Approved by: Jeffery Summers M.D. on 04/04/2019 at 15:46
--- NOTE | 2019-04-04 13:44 | PC.NURSE ---
DR MIRANDA AWARE OF HIGH DIASTOLIC PRESSURE.
[2019-04-04] MEDS: MIDAZOLAM 5 MG/5 ML VIAL IV (13:48)
[2019-04-04] MEDS: BUPIVACAINE 0.5% (PF) VIAL 2 ML INJ (13:55)
[2019-04-04] MEDS: LIDOCAINE 1% 20 ML 10 ML INJ (13:55)
[2019-04-04] MEDS: IOPAMIDOL 15 ML VIAL 3 ML INJ (13:55)
--- NOTE | 2019-04-04 14:00 | PC.NURSE ---
ASSISTING PT OFF TABLE AND TRANSPORTING TO POST PROC AREA IN STABLE CONDITION. PASSING PT CARE ON TO ZEFERINO Horne RN.
--- NOTE | 2019-04-04 14:06 | PM.PROC.1 ---
Procedures Date/Time Date of procedure: 04/04/19 Time of procedure: 14:06 General Procedure description: POST OP DIAGNOSIS 1. FACET ARTHROPATHY PROCEDURES 1. BILATERAL- L5 and S1 MB BLOCKS PHYSICIAN: Jasmeet Brink DO INDICATIONS Krystyna is referred by [facility] for treatment of Bilateral Axial LBP s/p fusion. DESCRIPTION OF PROCEDURE Fluoroscopically guided, contrast-controlled bilateral L5 and S1 medial branch blocks with 0.5cc of 0.5% Marcaine. Following review of allergy and review of potential side effects and complications, including, but not necessarily limited to, infection, allergic reaction, local tissue breakdown, nerve injury, paralysis, stroke and possible , the patient indicated that the patient understood and agreed to proceed. An informed consent document was signed by the patient, witnessed by a nurse, and placed in the patient's chart. After review of previous anaesthesic history and IV conscious sedation the patient was deemed safe to proceed with todays procedure with IV conscious sedation as ASA class II designation. Safety time-out was performed to confirm patient ID, procedure to be performed and site of procedure. IV sedation was accomplished with 2mg of Versed was administered by the RN after DO order, titrated to patient comfort during the course of the procedure while the patient remained responsive to all verbal commands In the prone position, following sterile prep and drape of the lumbar region, the right L5 and S1 anatomical location of the medial branch of the dorsal ramus was identified fluoroscopically. Subsequently an anesthetic skin wheal using 1% lidocaine solution was initiated at each of the anatomical spots. Subsequently then a 22-gauge 3.5-inch spinal needle was atraumatically introduced and advanced under fluoroscopic guidance at each of the corresponding sites at the right L5 and S1 MB. After negative aspiration, 0.2 cc of Isovue 200 was injected, confirming placement without vascular or intrathecal uptake. Subsequently then 0.5 cc of 0.5% Marcaine solution was injected at each of the corresponding sites at the right L5 and S1 medial branch locations. The identical procedure was replicated on the left. The patient tolerated the procedure well without signs or symptoms of complications. The patient tolerated the procedure well without signs or symptoms of complications prior to transfer to the recovery area continued monitoring without incident. Post-procedure, the patient was monitored initiating provocative activities to measure the amount of relief from block of the facetogenic pain. The patient reported a VAS of 7 prior to the procedure and a post-procedure VAS of 1. It has been a pleasure to assist in the diagnostic and therapeutic care of your patient. Total Fluoroscopy Time: 8 seconds Total Conscious Sedation Time: 24min POST OP INSTRUCTIONS The patient was provided with a Pain Log to complete over the next several hours and subsequent days prior to the patient's follow up with the ordering physician. If the patient has bull rider relief to the solution applied, then they may be a candidate for medial branch rhizotomy. The patient is aware, was provided, once again, with a Pain Log and will follow up with the referring physician for review and clinical correlation Jasmeet Brink DO Complications: none
--- NOTE | 2019-04-04 14:54 | PC.NURSE ---
Post procedure discharge note: Patient arrived at 1410. Awake and alert. VSS, O2 Sat WNL. handoff report received from Aashish Farah. No complaints of pain 0/10. discharged to home W/C to car with daughter at 1440.
== END 2019-04-04 14:40 | disposition home or self-care (01) ==
PROVIDERS: PCP Physician Assistant; Visit Provider Physical Medicine & Rehabilitation
DX: M47.817 Spondylosis without myelopathy or radiculopathy, lumbosacral region (principal); M54.5 Low back pain; Z98.1 Arthrodesis status
CPT/HCPCS: 64493; 99152; J2250; J3010

== ENCOUNTER 2019-04-29 07:27 | Outpatient (CLI) | payer MEDICARE, OTHER, SELFPAY ==
[2018-07-17 12:19] VITALS: BMI 27.2
[2019-04-29] VITALS (9 sets, daily range): BP systolic 163–176; BP diastolic 68–86; PULSE 61–75; RESP 16–18; TEMP 36.7; O2SAT 95–99
--- NOTE | 2019-04-29 07:29 | DI.RAD.S_ITS ---
PROCEDURE: PAIN L/S MED/LAT N RFA BILAT INDICATIONS: SPONDYLOSIS FINDINGS: Fluoroscopic spot filming was performed to verify placement of spinal needles at the L5, S1 level(s), as labeled on the films. Appropriate location(s) of the needle tip(s) was confirmed by injection of iodinated contrast. Dictated by: Jameson Lee M.D. on 04/29/2019 at 11:31 Approved by: Jameson Lee M.D. on 04/29/2019 at 11:32
[2019-04-29] MEDS: MIDAZOLAM 5 MG/5 ML VIAL IV (08:46)
[2019-04-29] MEDS: fentaNYL 100 MCG/2 ML INJ 50 MCG IV (08:47)
[2019-04-29] MEDS: BUPIVACAINE 0.5% (PF) VIAL 2 ML INJ (08:58)
--- NOTE | 2019-04-29 09:10 | PC.NURSE ---
ASSISTING PT OFF TABLE AND TRANSPORTING TO POST PROC AREA IN STABLE CONDITION. PASSING RN CARE OF PT OFF TO NELDA Valle RN.
--- NOTE | 2019-04-29 09:15 | P.PCN_ITS ---
Procedures Date/Time Date of procedure: 04/29/19 Time of procedure: 09:15 General Procedure description: Procedure Note PREOP DIAGNOSIS 1. RECALCITRANT FACET ARTHROPATHY, POST OP DIAGNOSIS 1. RECALCITRANT FACET ARTHROPATHY, PROCEDURES 1. BILATERAL L5 MEDIAL BRANCH RADIOFREQUENCY NEUROTOMY AND BILATERAL S1 DORSAL RAMUS BRANCH RADIOFREQUENCY NEUROTOMY. PHYSICIAN: Jasmeet Brink, INDICATIONS Krystyna is referred by [facility] for LBP s/p L4/5 fusion. DESCRIPTION OF PROCEDURE Bilateral L5 medial branch radiofrequency neurotomy and bilateral S1 dorsal ramus branch radiofrequency neurotomy under fluoroscopy with conscious sedation. The patient is well known to this clinic having undergone previous facet injections with good but temporary relief. The patient has experienced appropriate, concordant relief with previous facet and median branch blocks but the patient's pain has been recalcitrant to further conservative measures. Therefore, based upon the patient's relief and persistent symptoms, the patient is considered an appropriate candidate for facet rhizotomy. All of the patient's questions regarding the risks versus benefits of the procedure, including, but not limited to, bleeding, infection, temporary as well as lasting nerve injury, paralysis, stroke, and , as well treatment alternatives were answered to satisfaction. After obtaining informed consent, denial of pertinent drug allergies, as well as being made aware of the potential risks of bleeding, infection, spinal cord trauma, paralysis, temporary and permanent nerve damage, seizure, stroke, and possible , the patient was brought to the fluoroscopy suite and positioned prone on the fluoroscopy table. The lumbar region was prepped with Betadine and covered with a fenestrated drape in the usual sterile fashion. Appropriate mon itors applied including pulse oximeter, pulse, and blood pressure for regular monitoring throughout the procedure. After review of previous anaesthesic history and IV conscious sedation the patient was deemed safe to proceed with todays procedure with IV conscious sedation as ASA class II designation. Safety time-out was performed to confirm patient ID, procedure to be performed and site of procedure. IV sedation was accomplished with a combination of 2mg of Versed and 50mcg of Fentanyl was administered by the RN after DO order, titrated to patient comfort during the course of the procedure while the patient remained responsive to all verbal commands. After local infiltration using 1% lidocaine, under fluoroscopic guidance, a 10- cm RF insulated needle with a 10-mm active tip was positioned parallel to the junction of the bilateral sacral ala and the superior articulating process where the S1 dorsal ramus resides. Needle placement was confirmed with motor stimulation of .5v on the right; motor stimulation of .6v on the left, which produced local stimulation without radicular component. The stimulation was then increased to 1.5v with, once again, only local multifidus stimulation without radicular component. This was then followed by two discreet lesions performed at 80 degrees Celsius for 90 seconds each. The needle was then removed and the identical procedure was performed along the length of the bilateral L5 medial branch with motor stimulation at .7v on the right; motor stimulation at .6v on the left. The patient tolerated the procedure well without signs or symptoms of complications prior to transfer to the recovery area continued monitoring without incident. The patient was then transferred to the recovery area where they were observed for an appropriate period of time after the injection. The patient reported a VAS score of 9 prior to the procedure and a post- procedure VAS of 0. Total Fluoroscopy Time: 14 seconds Total Conscious Sedation Time: 46min POST OP INSTRUCTIONS The patient was provided a Pain Log to continue to record the patient's response to the target-specific procedure prior to the patient's follow-up visit with the referring physician. Additionally, specific post-injection care instructions and a contact number to our office were provided if concerns arise regarding possible complications associated with the procedure are suspected. Jasmeet Brink DO Complications: none
--- NOTE | 2019-04-29 09:50 | PC.NURSE ---
at 0914 return from procedure via w/c, able to transfer self from w/c to chair, tolerated well, pain free. ice water , tolerated well.,
== END 2019-04-29 09:28 | disposition home or self-care (01) ==
LOC: RAD 07:28
PROVIDERS: PCP Physician Assistant; Referring Provider Physical Medicine & Rehabilitation; Visit Provider Physical Medicine & Rehabilitation
DX: M47.817 Spondylosis without myelopathy or radiculopathy, lumbosacral region (principal)
CPT/HCPCS: 64635; 99152; J0702; J2250; J3010

== ENCOUNTER → 2019-08-26 11:34 | Outpatient (CLI) | payer MEDICARE, OTHER, SELFPAY ==
[2018-07-17 12:19] VITALS: BMI 27.2
--- NOTE | 2019-08-26 | DI.US.S_ITS ---
PROCEDURE: US SOFT TISSUE HEAD AND NECK INDICATIONS: NEOPLASM OF UNSPECIFIED BEHAVIOR OF BONE, SOFT TISSUE TECHNIQUE: Real-time scanning was performed of the neck region of interest, with image documentation. COMPARISON: None. FINDINGS: At the right posterior lower neck 5.2 x 1.2 x 3.4 cm hypoechoic soft tissue mass is found which is nonspecific, does not contain internal or marginal elevated blood flow, in which has an appearance potentially a manifestation of lipoma. Please correlate clinically-if there is suspicion for underlying sarcoma followup by contrast enhanced MR scanning is recommended. Otherwise continued clinical followup is definitely recommended to establish absence of meter changes records clerk time. 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 Dictated by: Maximilian Williamson M.D. on 08/26/2019 at 14:39 Approved by: Maximilian Williamson M.D. on 08/26/2019 at 14:41
== END ==
PROVIDERS: PCP Physician Assistant; Referring Provider Family Medicine; Visit Provider Family Medicine
DX: D49.2 Neoplasm of unspecified behavior of bone, soft tissue, and skin (principal)
CPT/HCPCS: 76536

== ENCOUNTER → 2020-01-20 11:25 | Outpatient (CLI) | payer MEDICARE, OTHER, SELFPAY ==
[2018-07-17 12:19] VITALS: BMI 27.2
--- NOTE | 2020-01-20 | DI.MRI.S_ITS ---
PROCEDURE: MR SHOULDER RT WO CON INDICATIONS: Primary osteoarthritis, right shoulder TECHNIQUE: Noncontrast oblique coronal T2 fast spin echo with fat saturation, oblique sagittal T1 spin echo and T2 fast spin echo with fat saturation, axial T1 spin echo and T2 fast spin echo with fat saturation through the shoulder. COMPARISON: None. FINDINGS: Image quality: Suboptimal due to scattered postsurgical artifact.. Rotator cuff: Postsurgical changes are present however there is full-thickness appearing small defect of the supraspinatus tendon raising possibility of small recurrent tear (image 7-8/10.) There is also marked subscapularis tendinopathy and thickening with partial-thickness articular sided tear and/or postsurgical changes. Infraspinatus tendinopathy. The teres minor appears intact. Fatty infiltration of the supraspinatus and infraspinatus muscles. No atrophy of the rotator cuff muscles. Bones and bursae: No bone marrow contusions or fractures. Moderate acromioclavicular joint degeneration. Severe glenohumeral joint degeneration. Acromion demonstrates conventional anatomy, without an os acromiale. Mild subacromial-subdeltoid bursitis. Capsule and soft tissues: Labrum: Circumferential macerated appearance of the labrum which is likely chronic. Long head of the biceps tendon is thickened where visualized otherwise the intra-articular segment is not well seen which could be postsurgical change from tenodesis. Obliteration of the subcoracoid fat. Coracohumeral ligament not well seen. IMPRESSION: Severe joint degeneration Circumferential macerated appearance of the labrum which likely chronic degeneration and/or tear versus postsurgical effects. Small full-thickness tear involving the supraspinatus tendon Marked subscapularis tendinopathy and thickening with partial-thickness articular sided tear however this could represent postsurgical appearance. Please correlate clinically and with operative history Infraspinatus tendinopathy. Mild subacromial-subdeltoid bursitis Long head biceps tendon is not well visualized although thickened where seen. This could be the result of biceps tenodesis versus rupture/tendinopathy. Dictated by: Jameson Lee M.D. on 01/20/2020 at 14:35 Approved by: Jameson Lee M.D. on 01/20/2020 at 15:26
== END ==
PROVIDERS: PCP Physician Assistant; Referring Provider Physician Assistant; Visit Provider Orthopaedic Surgery
DX: M19.011 Primary osteoarthritis, right shoulder (principal); M75.121 Complete rotator cuff tear or rupture of right shoulder, not specified as traumatic; M75.51 Bursitis of right shoulder
CPT/HCPCS: 73221

== ENCOUNTER 2020-02-02 22:10 | Emergency (ER) | payer MEDICARE, OTHER, SELFPAY ==
[2018-07-17 12:19] VITALS: BMI 27.2
[2020-02-02 22:20] VITALS: BP 172/78; PULSE 78; RESP 15; TEMP 37.1; O2SAT 96; BMI 26.1
--- NOTE | 2020-02-02 22:25 | DI.RAD.S_ITS ---
PROCEDURE: XR HUMERUS RT 2V INDICATIONS: heard crack, pain with pronation TECHNIQUE: 2 views of the humerus were acquired. COMPARISON: None. FINDINGS: Bones: No fractures or dislocations. No suspicious bony lesions. 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 Soft tissues: No suspicious soft tissue calcifications. IMPRESSION: No fracture. No acute osseous lesion. If symptoms and/or clinical suspicion for pathology persists, further assessment with repeat radiographs (7-10 days) or advanced imaging (e.g. CT, MRI or bone scan) may be helpful. Dictated by: Joselyn Carlson MD, PhD on 02/03/2020 at 8:38 Approved by: Joselyn Carlson MD, PhD on 02/03/2020 at 8:42
--- NOTE | 2020-02-02 23:12 | ED_ITS ---
HPI - General Adult General Chief complaint: Extremity Injury, Upper Stated complaint: right arm, thinks fractured Time Seen by Provider: 02/02/20 22:33 Source: patient and family Mode of arrival: Wheelchair Limitations: no limitations History of Present Illness HPI narrative: Patient is an 85-year-old female here for evaluation of right upper arm pain. She states that she was cleaning in her home just prior to a rrival when she felt like she heard a pop or a crack in her right upper arm. Since then she has had pain. She describes the pain between her elbow and her shoulder. She is concerned that potentially she fractured the area. She did arrive in a sling that she already had at home. Has not tried anything for symptoms prior to arrival. Related Data Home Medications Medication Instructions Recorded Confirmed gabapentin 600 mg PO BID 07/24/17 04/16/19 pregabalin 300 mg capsule 600 mg PO BID cap 01/31/19 04/16/19 Previous Rx's Medication Instructions Recorded tramadol 50 mg tablet 50 mg PO TID PRN #60 tab 08/28/18 diclofenac sodium 1 % topical gel 2 g TOP QID #100 gram MDD 8 gm 04/16/19 hydrocodone-acetaminophen [[place]] 1 tab PO Q4-6H PRN #10 tab 02/02/20 Allergies Allergy/AdvReac Type Severity Reaction Status Date / Time oxycodone [OXYCODONE] Allergy Mild ITCHING TO Verified 04/16/19 14:31 NOSE Review of Systems Constitutional Constitutional: Denies fever(s) and Denies headache(s) ENT Ears, Nose, Mouth, and Throat: Denies headache(s) Cardiovascular Cardiovascular: Denies chest pain and Denies dyspnea Respiratory Respiratory: Denies dyspnea Gastrointestinal Gastrointestinal: Denies abdominal pain Genitourinary Genitourinary: Denies dysuria Genitourinary: Denies dysuria Musculoskeletal Comments: Right upper arm pain Integumentary/Breasts Skin/Breast: Denies rash Neurologic Neurologic: Denies behavioral changes and Denies headache(s) Psychiatric Psychiatric: Denies behavioral changes Hematologic/Lymphatic Hematologic/Lymphatic: Denies easy bleeding and Denies easy bruising Allergic/Immunologic Allergic/Immunologic: Denies urticaria Patient History Medical History Acid reflux (Acute) Anxiety (Acute) Chronic UTI (Acute) Depression (Acute) Easy bruisability (Acute) Elevated blood pressure reading without diagnosis of hypertension (Acute) Facet arthropathy, lumbosacral (Chronic) Goiter (Acute) Hip fracture, right (Acute) History of anal fissures (Acute) History of revision of total replacement of right hip joint (Acute) Nerve pain due to spinal stenosis (Acute) Restless leg syndrome (Acute) Sciatica (Acute) Shoulder pain (Acute) Trigeminal neuralgia (Acute) UTI (urinary tract infection) (Acute) Surgical History H/O hemorrhoidectomy (Acute) H/O: hysterectomy (Acute) History of arthroplasty of right knee (Acute) History of lumbar spinal fusion (Acute 07/28/17) History of total right hip arthroplasty (Acute 01/27/16) Hx of shoulder surgery (Acute) S/P epidural steroid injection (Acute) S/P left knee arthroscopy (Acute) Social History household members: none Smoking Status: Former smoker alcohol intake: current Smoking Status: Former smoker alcohol intake frequency: holidays/special occasions only Substance Use Type: does not use Exam Initial Vital Signs Initial Vital Signs: Vital Signs Temperature 98.8 F 02/02/20 22:20 Pulse Rate 78 02/02/20 22:20 Respiratory Rate 15 02/02/20 22:20 Blood Pressure 172/78 H 02/02/20 22:20 Pulse Oximetry 96 02/02/20 22:20 Const General: cooperative and comfortable Limitations: mental status not altered HENMT Head: normal to inspection and normocephalic Resp Effort & Inspection: normal respiratory effort Cardio Pulses: radial pulses present on the right Skin Lesions: no lesions Rashes: no rashes Neuro Sensory Exam: no sensory deficits noted Extrem Other: Very difficult to obtain an exam on the patient secondary to the pain that she was having with any movement of her right arm. She did not have any tenderness to palpation of the right shoulder specifically. She had no tenderness palpation around the right elbow specifically. Her right elbow and right hand are unremarkable. She did have tenderness over the biceps region and some over the triceps region but it did seem to be more associated on the anterior portion over the biceps. I did not specifically feel a biceps tendon proximally. As I attempted to passively strainer elbow she states that she was having extreme pain in her biceps and felt like it was ?stretching? she had pain with supination of her right arm. Course Orders Ordered: ED Orders 02/02/20 22:25 XR humerus RT 2V Stat Discontinued Medications Hydrocodone Bitart/Acetaminophen ([place] 5/325) 1 tab PO NOW ONE Stop: 02/02/20 23:13 Last Admin: 02/02/20 23:33 Dose: 1 tab Documented by: XAVIER Hydrocodone Bitart/Acetaminophen (Vicodin 5/325 Prepack) 1 bottle MISC SEEINSTR ONE Stop: 02/02/20 23:13 Last Admin: 02/02/20 23:39 Dose: 1 bottle Documented by: XAVIER Vital Signs Vital signs: Vital Signs - 8 hr 02/02/20 22:20 Temperature 98.8 F Pulse Rate 78 Respiratory Rate 15 Blood Pressure 172/78 H Pulse Oximetry 96 Medical Decision Making Imaging Data Extremity x-ray #1: Radiologist's Impression: Negative exam of the right humerus MDM Narrative Medical decision making narrative: Patient was neurovascularly intact. There were no fractures noted on the x-ray of her right humerus. It was difficult to obtain exam given her discomfort however feel where she is having the discomfort in the like fracture on the x-ray that she most likely has disrupted the biceps muscle in her right arm. Potentially the triceps as well however this did not seem to elicit as much discomfort with palpation of the tricep is a did her bicep. Had a discussion with her and her daughter was at bedside regarding her symptoms. She is currently under the care by an orthopedist for her right shoulder for which she just had an MRI performed. I did discuss with him that I was not 100% certain but her exam was most consistent with potentially a muscle injury. She seems somewhat reluctant to believe that there was no fractures on the x-ray because of the ?pop? that she heard. Informed her that tomorrow she needed contact her orthopedic doctor to schedule follow-up visit in to discuss any potential further workup to include MRI. She was given pain medication. We did discuss the importance of avoiding falling at this pain medicine could potentially cause her to become drowsy. She is instructed to stop taking her tramadol in take this medication instead. She expressed understanding and agre ement. Discharge Plan Departure Patient Disposition: Home Clinical Impression: Injury of right upper arm Discharge Date/Time: 02/02/20 23:40 Activity Restrictions/Additional Instructions: I do have a high suspicion that you have injured the biceps muscle to your right arm. You can wear the sling as needed however like we discussed you do need to make sure you are removing the sling and moving your shoulder at least several times every day. You can certainly can take it off to shower. Take the medication as directed. The medication you were given here in the emergency department will be in place of the tramadol that you currently have prescribed to you. Also recommend that tomorrow you contact your orthopedic provider to discuss follow-up. Return to the emergency department for any new symptoms Prescriptions: New hydrocodone-acetaminophen [[place]] 5-325 mg tablet 1 tab PO Q4-6H PRN (Reason: pain) Qty: 10 RF: 0 No Action tramadol 50 mg tablet 50 mg PO TID PRN (Reason: pain) Qty: 60 RF: 1 gabapentin 600 mg Tablet 600 mg PO BID RF: 0 pregabalin [Lyrica] 300 mg capsule 600 mg PO BID RF: 0 diclofenac sodium 1 % gel 2 g TOP QID MDD 8 gm Qty: 100 RF: 5 Referrals: Manuela Silverio PA-C [Primary Care Provider] -
[2020-02-02] MEDS: HYDROCODONE/ACET 5/325 TABLET 1 TAB PO (23:33)
[2020-02-02] MEDS: HYDROCODONE/ACET 5/325 PREPACK 1 BOTTLE MISC (23:39)
== END 2020-02-02 23:40 | disposition home or self-care (01) ==
PROVIDERS: Emergency Provider Emergency Medicine; PCP Physician Assistant
DX: S49.91XA Unspecified injury of right shoulder and upper arm, initial encounter (principal)
CPT/HCPCS: 73060; 99283

== ENCOUNTER → 2020-03-23 09:10 | Outpatient (CLI) | payer MEDICARE, OTHER, SELFPAY ==
[2018-07-17 12:19] VITALS: BMI 27.2
--- NOTE | 2020-03-23 | DI.NM.S_ITS ---
PROCEDURE: [facility] BONE SCAN WHOLE BODY RADIOPHARMACEUTICAL: 20.2 mCi Tc-99m MDP IV. INDICATIONS: Presence of right artificial hip joint TECHNIQUE: Delayed whole-body scintigrams were obtained approximately 3-4 hours after intravenous injection of radiotracer. Anterior and posterior views were acquired from vertex to feet. Additional left and right oblique views of the neck/chest, lower abdomen/pelvis were obtained. COMPARISON: [facility], [place], XR HUMERUS RT 2V, 02/02/2020, 22:28. [facility] [place], [place], XR PELVIS WITH LATERAL HIP RIGHT, 01/29/2020, 10:22. [facility], BONE SCAN WHOLE BODY, 09/02/2016, 12:57. FINDINGS: As was previously the case in August of 2016 there is asymmetric cervical thoracic junction isotope uptake on the right, consistent with stable degenerative change in that area. Additionally, prior plain film imaging shows a right total hip arthroplasty, and then a additional operative procedure immediately below with fixation plate and cerclage wires, and as was the case on the bone scan from 2016 there is mild elevated isotope uptake involving the intervening femoral cortex and medullary space, but little if any changed over time. IMPRESSION: Stable appearing degenerative changes as discussed, stable mild elevated isotope deposition within the interspace between the inferior aspect of the right total femoral arthroplasty and the superior aspect of a more inferior fixation plate along the right femoral diaphysis. This pattern was previously present, and a definite source of new pain in that area is not found. Dictated by: Maximilian Williamson M.D. on 03/23/2020 at 14:25 Approved by: Maximilian Williamson M.D. on 03/23/2020 at 14:31
== END ==
PROVIDERS: PCP Physician Assistant; Referring Provider Orthopaedic Surgery; Visit Provider Orthopaedic Surgery
DX: Z96.641 Presence of right artificial hip joint (principal); M47.813 Spondylosis without myelopathy or radiculopathy, cervicothoracic region
CPT/HCPCS: 78306; A9503

== ENCOUNTER → 2020-04-28 09:34 | Outpatient (CLI) | payer MEDICARE, OTHER, SELFPAY ==
[2018-07-17 12:19] VITALS: BMI 27.2
[2020-04-28 10:20] LABS: COVID19 -Nasal RAPID Negative (Negative)
== END ==
PROVIDERS: PCP Physician Assistant; Visit Provider Surgery
DX: Z20.822 Contact with and (suspected) exposure to COVID-19 (principal); Z01.812 Encounter for preprocedural laboratory examination
CPT/HCPCS: 87635; C9803

== ENCOUNTER 2020-04-29 10:51 | Day surgery (SDC) | payer MEDICARE, OTHER, SELFPAY ==
[2018-07-17 12:19] VITALS: BMI 27.2
[2020-04-29] VITALS (8 sets, daily range): BP systolic 111–129; BP diastolic 53–69; PULSE 71–84; RESP 12–92; TEMP 36.2–36.9; O2SAT 12–98; BMI 26.6
--- NOTE | 2020-04-29 | PATH_ITS ---
[facility] Accession Number: [id number] . 01 Material submitted: . neck - RIGHT NECK MASS . 01 Clinical history: . SDC . 01 Diagnosis: Right Neck, Excision: Fragments of mature fibroadipose tissue, consistent with lipoma. MRV 05/04/2020 1123 Local . 01 Electronically signed: . Haja Celaya MD, Dermatopathologist NPI- [id number] . 01 Gross description: . The specimen is received in formalin, labeled right neck mass and consists of multiple irregular andrew-yellow lobulated fragments of adipose tissue measuring 3.8 x 3.8 x 1.9 cm in aggregate. The larger fragments are serially sectioned, and the specimen is entirely submitted in cassettes A1-A4. ([id number]) /[facility] 04/30/2020 1655 Local . 01 Pathologist provided ICD-10: D17.9 . 01 CPT . 002897 Performed at: [address], [place], [place] [id number] MD Dante Mccann MD Phone: [phone]
--- NOTE | 2020-04-29 07:56 | PM.PREOP ---
Pre-operative Note COVID-19 COVID-19 status: Negative Result date/Date tested (Pos, Neg/Pending): 04/28/20 Interval Note History & Physical reviewed/Exam performed by Physician: Yes Changes to H&P: No
[2020-04-29] MEDS: LACTATED RINGERS 1,000 ML 100 ML IV (11:22)
[2020-04-29] MEDS: CEFAZOLIN 2 GM/100 ML FROZ.PIGGY IV (11:46)
--- NOTE | 2020-04-29 12:10 | SUR.OPER ---
Lateral on rao bag, head on gel, gel axillary roll in place, bottom leg bent with gel pad under knee to foot, upper leg straight and supported with pillows. Upper arm supported by pillows and secured over bottom arm to padded arm board. Safety belt at hip, tape over blanket lower legs.
[2020-04-29] MEDS: BUPIVACAINE 0.5% W/ EPI (PF) 30 ML VIAL INJ (12:15)
--- NOTE | 2020-04-29 12:31 | PM.OP.1 ---
Operative Date/Time/Diagnoses Date of procedure: 04/29/20 Time of procedure: 12:31 Pre-op diagnosis: painful neck mass, suspect lipoma Post-op diagnosis: same Procedure & Clinicians Procedure: Excision of lipoma 2cm x 3cm in aggregate Same procedure as scheduled: Yes Indications: painful parasthesias caused by neck mass, neoplasm of unknown malignant potential Surgeon: Rema Rodriguez Click Yes if Unassisted: Yes Anesthesia Type: General Operative Notes Findings: Poorly vascularized subfascial fatty mass in right side of lower neck Specimen(s): other (fatty mass of neck) Estimated Blood Loss (mL): 1 Blood products transfused: none Procedure in detail: The patient was brought into the OR and placed supine on the OR table. Sequential compression devices were placed on both legs and turned on. General anesthesia was induced and the patient was intubated by the anesthesiologist. Appropriate perioperative antibiotics were given. The patient was then positioned in left lateral decubitus position with all bony prominences padded. The right neck and upper back was prepped and draped in sterile fashion. Surgical time-out was conducted. Local anesthetic with 5 mL of 0.5% Marcaine with epi, was infiltrated into the skin overlying the palpable mass at the nape of the neck, and a 3 cm oblique incision was made overlying the mass. Dissection was carried down through the thick dermis and subcutaneous fat, and through a thin layer of muscle and fascia, until the fatty mass was encountered. Dissection was carried around the mass, it was delivered through the wound. It was very fragile, and poorly vascularized. It broke into pieces it was pulled out of the wound, and was passed off the table. In aggregate it was about 2 x 3 cm in size. A couple of small bleeders were cauterized. The wound was hemostatic. The fascia and deep dermis were then closed with running 3-0 Vicryl, and the skin was closed with subcuticular 4-0 Monocryl, and sealed with dermabond. The patient was then awakened from anesthesia and extubated. Needle sponge and instrument counts were correct x 2. The patient was transferred to the PACU in stable condition. Complications: none Post-operative Condition: stable Disposition: PACU
--- NOTE | 2020-04-29 12:48 | SUR.PHASEI ---
Pt reveived to PACU after general aneshesia. Airway patent, self maintained. Report received from SHREYA Mcclendon and Dr Farfan.
== END 2020-04-29 13:45 | disposition home or self-care (01) ==
PROVIDERS: PCP Physician Assistant; Referring Provider Surgery; Visit Provider Surgery
PROC: (CPT 21554; principal; 2020-04-29 12:00)
DX: D17.0 Benign lipomatous neoplasm of skin and subcutaneous tissue of head, face and neck (principal); K21.9 Gastro-esophageal reflux disease without esophagitis; G25.81 Restless legs syndrome
CPT/HCPCS: 21554; J0690; J1100; J2405; J2704; J3010

== ENCOUNTER → 2020-07-06 11:04 | Outpatient (CLI) | payer MEDICARE, OTHER, SELFPAY ==
[2018-07-17 12:19] VITALS: BMI 27.2
[2020-07-06 13:19] LABS: COVID19 -Nasal RAPID Negative (Negative)
== END ==
PROVIDERS: PCP Physician Assistant; Visit Provider Student in an Organized Health Care Education/Training Program
DX: Z20.822 Contact with and (suspected) exposure to COVID-19 (principal)
CPT/HCPCS: 87635; C9803

== ENCOUNTER 2020-07-08 09:09 | Day surgery (SDC) | payer MEDICARE, OTHER, SELFPAY ==
[2018-07-17 12:19] VITALS: BMI 27.2
--- NOTE | 2020-07-07 19:17 | PM.PREOP ---
Pre-operative Note COVID-19 COVID-19 status: Negative Interval Note History & Physical reviewed/Exam performed by Physician: Yes Changes to H&P: No
--- NOTE | 2020-07-08 07:42 | P.OP_ITS ---
Operative Date/Time/Diagnoses Date of procedure: 07/08/20 Time of procedure: 10:45 Procedure & Clinicians Procedure: Preoperative diagnoses: 1. Right complex surgery with use of capsular dye. 2. Mature or advanced nuclear sclerotic and cortical cataract with poor visibility of the anterior capsule increasing surgical risks of complications. 3. Arthritis 4. 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 Postoperative diagnoses: 1. Complex surgery with use of capsular dye, 2. Placement of a posterior chamber intraocular lens implant. Surgeon: Maris Gottlieb MD Complications: none Specimen: None Implant: DIU+22.0 Blood loss: None Anesthesia: Retrobulbar with monitored standby. Description of procedure: Dictated by: Maris Gottlieb MD Post operative diagnoses: 1. Right cataract removed with use of capsular dye. 2. Placement of a posterior chamber intraocular lens. Procedure: Phacoemulsification with posterior chamber intraocular lens implant Surgeon: Maris Gottlieb MD Blood loss: None Anesthesia: Retrobulbar with monitored standby Description of procedure: Patient has presented with decreased vision due to advanced cataract which is affecting activities of daily living. She is unable to see either distance or near clearly. The patient wants surgery to improve vision. She understands the extra risk of surgery during the COVID-19 epidemic and wishes to proceed. She has tested negative for Covid virus within 72 hours of the surgery. Due to the advanced nature of the cataract capsular dye and a Miloop will be used to improve safety. The patient was taken to the operating room and given IV sedation. A retrobulbar block consisting of 6 cc of 2% xylocaine without epinephrine mixed half and half with 0.5% Marcaine with 1 cc of hyaluronidase added is placed between the medial and lateral 1/3 of the inferior orbital rim. The eye is manually massaged for 30 sec, prepped using Betadine solution, and draped in the usual sterile fashion. Temporal approach was made, a 1 mm side-port incision was performed 90 degrees from the planned corneal wound. Phenylephrine 1.5% mixed with 1% xylocaine 0.2 cc was placed into the anterior chamber. [An air bubble was placed and Visudyne dye was placed to improve visibility of the anterior capsule. The dye was irrigated out to reduce bubbles. ]Viscoat followed by Healon was then placed. A 2.6 mm clear incision with a 2.6 mm blade was placed. A 360 degree capsulorrhexis style capsulotomy was then performed with a cystitome needle on a [employer]. Hydrodelineation and hydrodissection were performed. The phacoemulsification unit is introduced, and sculpting used to groove the central lens. As it was able to be cracked I did not use a MiLoop. The lens was rotated and the procedure repeat. The nucleus is then removed in chopping mode using extra viscous viscoelastic. Epi nucleus is removed with epinuclear mode and irrigation aspiration was used to remove the peripheral cortex. The posterior capsule is polished. The intraocular lens is selected, inspected, power confirmed, and placed in the posterior chamber. A small amount of subincisional cortex was removed after the intraocular lens had been inserted for safety. The wound was stromally hydrated and tested for leaks, there was none and was left sutureless. Vigamox 0.1 cc was placed into the anterior chamber. Kenalog 0.2 cc was placed in the superior subconjunctival space. A drop of antibiotic and was placed and the eye was patched and shielded. The patient was stable and returned to the recovery room in excellent condition. Dictated by: Maris Gottlieb MD Copy to: [facility] Same procedure as scheduled: Yes
[2020-07-08] MEDS: PROPARACAINE 0.5% OPHTH SOL 2 DROPS EYE-OP (09:29)
[2020-07-08] MEDS: CATARACT EYE COMPOUND (10 DROPS/SYRINGE) 3 DROPS EYE-OP (09:30)
[2020-07-08 09:35] VITALS: BP 148/73; PULSE 66; RESP 16; TEMP 36.6; O2SAT 98; BMI 25.8
[2020-07-08] MEDS: LIDOCAINE 2% 4 ML, BUPIVACAINE 0.5% (PF) 4 ML, HYALURONIDASE 150 UNIT INJ (11:22)
[2020-07-08] MEDS: PHENYLEPHRINE/LIDOCAINE VIAL (OR) 0.2 ML EYE-OP (11:23)
[2020-07-08] MEDS: TRIAMCINOLONE 50 MG/5 ML VIAL INJ (11:23)
[2020-07-08] MEDS: MOXIFLOXACIN INJ 4 MG/0.8 ML VIAL 0.5 MG EYE-OP (11:24)
[2020-07-08] MEDS: HYALURONATE SODIUM 10 MG/ML SYRINGE INJ (11:24)
[2020-07-08] MEDS: CHONDROIDTIN/SOD HYALURONATE 1.05 ML SYRINGE INTRAOCULA (11:24)
[2020-07-08] MEDS: ERYTHROMYCIN OPHTH 1 GM OINT 1 APPLIC EYE-RIGHT (11:25)
[2020-07-08] MEDS: BALANCED SALT IRRIG SOLN NO.2 500 ML, EPINEPHrine 1 MG IRR (11:25)
[2020-07-08] MEDS: TRYPAN BLUE 0.5 ML SYRINGE INJ (11:26)
[2020-07-08 12:05] VITALS: BP 154/68; PULSE 60; RESP 16; TEMP 36.1; O2SAT 97
== END 2020-07-08 12:10 | disposition home or self-care (01) ==
LOC: OR 09:11
PROVIDERS: PCP Family Medicine; Referring Provider Ophthalmology; Visit Provider Ophthalmology
PROC: (CPT 66984; principal; 2020-07-08 10:45)
DX: H25.811 Combined forms of age-related cataract, right eye (principal); H31.093 Other chorioretinal scars, bilateral
CPT/HCPCS: 66984; J0171; J2704; J3301; J3470

== ENCOUNTER → 2020-10-13 10:46 | Outpatient (CLI) | payer MEDICARE, OTHER, SELFPAY ==
[2018-07-17 12:19] VITALS: BMI 27.2
--- NOTE | 2020-10-13 | DI.MRI.S_ITS ---
PROCEDURE: MR HIP RT WO CON INDICATIONS: Other bursitis of hip, right hip TECHNIQUE: Noncontrast coronal T1 spin echo and STIR through the bony pelvis. Coronal and axial T2 fast spin echo with fat saturation, sagittal T1 spin echo, and oblique axial T2 fast spin echo with fat saturation through the hip. Metallic artifact reduction pulse sequences were utilized. COMPARISON: [place], [place], BONE SCAN WHOLE BODY, 09/02/2016, 12:57. [facility], [place], XR PELVIS WITH LATERAL HIP RIGHT, 01/29/2020, 10:22. [facility], RF, HIP INJECTION, 02/07/2020, 11:18. [facility], RF, HIP INJECTION, 02/28/2020, 10:22. [place], [place], [place] BONE SCAN WHOLE BODY, 03/23/2020, 12:41. FINDINGS: BONES AND JOINTS: Osseous structures: No fracture identified. Postsurgical changes related to right hip arthroplasty again noted. No definite periprosthetic areas of bone destruction identified. Lumbar spinal fixation with hardware artifact is noted. Sacroiliac joints: Unremarkable in signal intensity. Lower lumbar spine: Diffuse spondylosis and facet arthropathy. Joint effusion: None. No periarticular fluid collections are seen. In the areas not obscured by artifact, no definite periarticular signal changes to suggest thickened synovitis. Other: No evidence of osteonecrosis. SOFT TISSUES: Visualized muscles: Mild hamstring origin tendinopathy which is age indeterminate. Other: No pelvic free fluid. No lymphadenopathy is seen. Bladder: Normal. Genitourinary structures and bowel loops: Normal where visualized. IMPRESSION: Postsurgical changes related to right hip arthroplasty. No suspicious signal changes to suggest synovitis. No periarticular fluid collections identified. No periprosthetic bone destruction is seen. No definite joint effusion. Dictated by: Jameson Lee M.D. on 10/13/2020 at 14:35 Approved by: Jameson Lee M.D. on 10/13/2020 at 14:44
== END ==
PROVIDERS: PCP Family Medicine; Referring Provider Orthopaedic Surgery; Visit Provider Orthopaedic Surgery
DX: M70.71 Other bursitis of hip, right hip (principal); Z96.641 Presence of right artificial hip joint
CPT/HCPCS: 73721

== ENCOUNTER → 2020-10-19 11:08 | Outpatient (CLI) | payer MEDICARE, OTHER, SELFPAY ==
[2018-07-17 12:19] VITALS: BMI 27.2
[2020-10-19 12:52] LABS: COVID19 -Nasal RAPID Negative (Negative)
== END ==
PROVIDERS: PCP Family Medicine; Visit Provider Physician Assistant
DX: Z01.812 Encounter for preprocedural laboratory examination (principal); Z20.822 Contact with and (suspected) exposure to COVID-19
CPT/HCPCS: 87635; C9803

== ENCOUNTER 2020-10-20 10:21 | Day surgery (SDC) | payer MEDICARE, OTHER, SELFPAY ==
[2018-07-17 12:19] VITALS: BMI 27.2
[2020-10-20] MEDS: PROPARACAINE 0.5% OPHTH SOL 2 DROPS EYE-OP (10:43)
[2020-10-20] MEDS: CATARACT EYE COMPOUND (10 DROPS/SYRINGE) 3 DROPS EYE-OP (10:44)
[2020-10-20 10:47] VITALS: BMI 26.3
--- NOTE | 2020-10-20 11:47 | PM.PREOP ---
Pre-operative Note Interval Note History & Physical reviewed/Exam performed by Physician: Yes Changes to H&P: No
--- NOTE | 2020-10-20 11:47 | PM.OP.1 ---
Operative Date/Time/Diagnoses Pre-op diagnosis: Nuclear Cataract Left eye Post-op diagnosis: same Procedure & Clinicians Same procedure as scheduled: Yes Surgeon: Waqas Maurer Anesthesia Type: MAC +/- and Sedation Operative Notes Procedure in detail: Patient brought to the operating suite. Tetracaine drops placed in the left eye. Patient was prepped and draped in sterile manner. Wire lid speculum was placed in the eye. Betadine drops were placed on the eye. This was irrigated. Lidocaine jelly was placed on the eye. A paracentesis port was created with a side-port blade. 0.1 mL 1% preservative free lidocaine was injected into the anterior chamber. The anterior chamber was deepened with viscoelastic. 2.6 mm keratome was used to create a temporal clear corneal incision. Cystotome and Utrata forceps were used to create continuous tear capsulorrhexis. Balanced salt solution was used to hydro dissect the nucleus. The phacoemulsification handpiece was inserted and the nucleus was removed using the stop and chop technique. The irrigation aspiration handpiece was inserted and the remaining cortex was removed. Anterior chamber was deepened with viscoelastic. An Fregoso DIB00 intraocular lens with a power of 21.0 was injected into the capsular bag. Irrigation aspiration handpiece was inserted and the remaining viscoelastic was removed. Incision was hydrated with balanced salt solution and found to be leak free with pressure with Weck-Nallely sponges. 0.1 mL Vigamox injected anterior chamber. 0.3 mL Kenalog 10 mg was injected subconjunctivally. Lid speculum was removed. The patient left the operating room in excellent condition. Complications: none Post-operative Condition: stable Disposition: same day surgery
[2020-10-20] MEDS: TETRACAINE 0.5% OPHTH DROPS 4 ML 2 DROPS EYE-OP (12:14)
[2020-10-20] MEDS: PHENYLEPHRINE/LIDOCAINE VIAL (OR) 0.2 ML EYE-OP (12:14)
[2020-10-20] MEDS: MOXIFLOXACIN INJ 4 MG/0.8 ML VIAL 0.5 MG EYE-OP (12:14)
[2020-10-20] MEDS: LIDOCAINE 2% (GLYDO) 6 ML GEL TOP (12:14)
[2020-10-20] MEDS: CHONDROIDTIN/SOD HYALURONATE 1.05 ML SYRINGE INTRAOCULA (12:14)
[2020-10-20] MEDS: BALANCED SALT IRRIG SOLN NO.2 500 ML, EPINEPHrine 1 MG IRR (12:15)
[2020-10-20] MEDS: TRIAMCINOLONE 50 MG/5 ML VIAL INJ (12:15)
[2020-10-20 12:39] VITALS: BP 148/66; PULSE 56; RESP 14; TEMP 36.3; O2SAT 97
== END 2020-10-20 12:44 | disposition home or self-care (01) ==
PROVIDERS: PCP Family Medicine; Referring Provider Ophthalmology; Visit Provider Ophthalmology
PROC: (CPT 66984; principal; 2020-10-20 12:15)
DX: H25.12 Age-related nuclear cataract, left eye (principal)
CPT/HCPCS: 66984; J0171; J2250; J3301

== ENCOUNTER → 2021-03-11 13:19 | Outpatient (CLI) | payer MEDICARE, OTHER, SELFPAY ==
[2018-07-17 12:19] VITALS: BMI 27.2
--- NOTE | 2021-03-11 13:21 | DI.ECHO.S_ITS ---
[place] [facility]---------+ [facility] +---------+ : : [address] : [address] : : : : [id number] : : : : Phone: [phone]+ Echocardiogram Report + + :Name: LAWANDA GALVEZ Study Date: 03/11/2021 Height: 65.5 in: :[facility] ReadingLocation: Weight: 165 lb : : Gender: Female BSA: 1.8 m2 : :: 1935 Age: 86 yrs BP: 160/80 mmHg: :Reason For Study: SOB, murmur : :Ordering Physician: : :MAYRA Performed By: Kit Thacker : :Referring: HUMPHREY TORRES : + + Interpretation Summary The left ventricle is normal in size. The ejection fraction is estimated to be 60-65%. The right ventricle is normal in size and function. The aortic valve is trileaflet. The aortic valve is moderately calcified. There is mildly reduced leaflet mobility. There is moderate aortic regurgitation. The ascending aorta is mildly enlarged. The IVC is of normal diameter and collapses greater than 50% with a sniff. This suggests a low right atrial pressure of 3 mm Hg. Procedure: A two-dimensional transthoracic echocardiogram with color flow and Doppler was performed. The study quality was technically adequate. There is no prior echocardiogram noted for this patient. Left Ventricle: The left ventricle is normal in size. There is mild concentric left ventricular hypertrophy. There is no thrombus. A false chord is noted (normal variant). The ejection fraction is estimated to be 60-65%. There are no focal wall motion abnormalities. MV E/A: 0.47. Right Ventricle: The right ventricle is normal in size and function. Atria: The left atrium is mildly dilated. The right atrium is mildly dilated. There is no Doppler evidence for an interatrial shunt. Mitral Valve: There is mild to moderate mitral annular calcification. No significant mitral valve stenosis. There is trace mitral regurgitation. Aortic Valve: The aortic valve is trileaflet. There is mildly reduced leaflet mobility. The aortic valve is moderately calcified. There is no hemodynamically significant valvular aortic stenosis. There is moderate aortic regurgitation. Tricuspid Valve: The tricuspid valve is not well visualized, but is grossly normal. There is trace tricuspid regurgitation. Pulmonary artery pressures cannot be estimated because of the lack of a measurable TR jet velocity but the IVC suggests a CVP of around 3 mmHg. Pulmonic Valve: The pulmonic valve is not well seen, but is grossly normal. Great Vessels: The aortic root is mildly dilated. The ascending aorta is mildly enlarged. The aortic arch is normal in size. The IVC is of normal diameter and collapses greater than 50% with a sniff. This suggests a low right atrial pressure of 3 mm Hg. Pericardium/ Pleura There is no pericardial effusion. There is an anterior echo-free space consistent with a fat pad. There is no pleural effusion. MMode/2D Measurements & Calculations LVIDd: 4.7 cm LVOT diam: 2.0 cm LVIDs: 3.5 cm Ao root diam: 3.7 cm FS: 25.5 % asc Aorta Diam: 3.6 cm IVSd: 1.1 cm Ao Arch Diam (Prox Trans): 3.0 cm LVPWd: 1.1 cm LV piña. diameter/BSA (cm/m^2): 2.6 LV sys. diameter/BSA (cm/m^2): 1.9 LA A2 area: 21.1 cm2 RA long axis: 5.2 cm LA A4 area: 20.7 cm2 LA length (vol): 5.7 cm LA vol: 64.7 ml LA vol index: 35.2 ml/m2 LVLs ap4: 6.0 cm LVLd ap2: 6.9 cm LVLs ap2: 5.2 cm TAPSE_phl: 3.3 cm Doppler Measurements & Calculations Ao V2 max: 168.0 cm/sec LVOT Max Rao: 96.7 cm/sec Ao V2 mean: 125.0 cm/sec LV V1 max P.7 mmHg Ao max P.0 mmHg LV V1 VTI: 20.2 cm Ao mean P.0 mmHg TRINH(I,D): 2.1 cm2 Ao V2 VTI: 30.8 cm TRINH(V,D): 1.8 cm2 sev ratio: 0.66 TRINH indexed to BSA (cm^2/m^2): 1.1 MV E max rao: 47.6 cm/sec PA V2 max: 80.0 cm/sec MV A max rao: 102.0 cm/sec PA V2 mean: 57.4 cm/sec MV E/A: 0.47 PA mean P.0 mmHg MV dec time: 0.26 sec PA pr(Accel): 38.5 mmHg MVA(VTI): 2.5 cm2 MV V2 mean: 61.4 cm/sec SV(LVOT): 63.5 ml MV mean P.0 mmHg MV V2 VTI: 25.7 cm AV VR_phl: 0.58 MV P1/2t-pr_phl: 76.0 msec TRINH(VTI)/BSA_phl: 1.1 Reading Physician:05:16 PM
== END ==
PROVIDERS: PCP Physician Assistant Medical; Referring Provider Physician Assistant Medical; Visit Provider Physician Assistant Medical
DX: I35.1 Nonrheumatic aortic (valve) insufficiency (principal); R06.02 Shortness of breath; R01.1 Cardiac murmur, unspecified; I77.89 Other specified disorders of arteries and arterioles
CPT/HCPCS: 93306

== ENCOUNTER 2023-04-14 10:10 | Emergency (ER) | payer MEDICARE, OTHER, SELFPAY ==
[2021-12-27 21:08] VITALS: BMI 27.4
[2023-04-14] VITALS (10 sets, daily range): BP systolic 111–148; BP diastolic 55–72; PULSE 66–73; RESP 18–37; TEMP 36.9; O2SAT 91–99; BMI 28.2
--- NOTE | 2023-04-14 10:24 | DI.RAD.S_ITS ---
PROCEDURE: XR CHEST 1V INDICATIONS: SOB TECHNIQUE: One view of the chest was acquired. COMPARISON: [facility], CR, XR CHEST 2V, 01/10/2022, 15:49. [facility], CR, XR CHEST 1V, 01/04/2022, 18:30. FINDINGS: Surgical changes and devices: None. Lungs and pleura: Lungs are clear. No pleural effusions or pneumothorax. Mediastinum: Mediastinal contours appear normal. Heart size is normal. Bones and chest wall: No suspicious bony lesions. Overlying soft tissues appear unremarkable. IMPRESSION: No acute cardiopulmonary abnormality is seen. Dictated by: Jonathon Anne M.D. on 04/14/2023 at 11:30 Approved by: Jonathon Anne M.D. on 04/14/2023 at 11:31
[2023-04-14] MEDS: ALBUTEROL 2.5 MG/3 ML NEB (ADULT) INH (10:30)
--- NOTE | 2023-04-14 10:50 | ED.GENADULT ---
HPI - General Adult General Chief complaint: Shortness of Breath/Dyspnea Stated complaint: sent from [facility] sob cough wheezing Time Seen by Provider: 04/14/23 10:23 Source: patient Mode of arrival: Ambulatory Limitations: no limitations History of Present Illness HPI narrative: Patient is an 88-year-old female. History of CHF. Diagnosis of COPD. For 3 weeks now has had cough, congestion. At the beginning of the disease process she was seen by her primary doctor. Was diagnosed with bronchitis. Was given an antibiotic and steroids. She is unsure of the name of the antibiotic but she thinks she took it 2 times a day for 5 days. She states that it has not helped. Her symptoms have continued. She states she does not have any energy. She is having chest pain but that is only when she coughs. Is having shortness of breath. She is taking her Lasix. She reports no lower extremity swelling but states that her swelling normally occurs in her abdomen what she has not had. She does feel like she is having sinus congestion and a sore throat. No fevers. Is having a headache because of the cough. It is not a productive cough. Has tried multiple dhuh-nfi-jzngauf medications without any improvement. Also received prescription medications try to help her cough without improvement. No abdominal pain or nausea or vomiting. Related Data Home Medications Medication Instructions Recorded Confirmed gabapentin 600 mg tablet 600 mg PO BID 07/24/17 12/27/21 atorvastatin 40 mg tablet 40 mg PO BEDTIME 12/27/21 12/27/21 hydrocodone 5 mg-acetaminophen 325 1 tab PO BID PRN Pain (Scale Score 12/27/21 12/27/21 mg tablet 1-3) metoprolol succinate 25 mg 25 mg PO DAILY 12/27/21 12/27/21 tablet,extended release 24 hr pregabalin 200 mg capsule 200 mg PO BID 12/27/21 12/28/21 sertraline 25 mg tablet 25 mg PO DAILY 12/27/21 12/27/21 Previous Rx's Medication Instructions Recorded promethazine 6.25 mg-codeine 10 5 ml PO Q4-6H PRN cough #473 mL 01/05/22 mg/5 mL syrup Allergies Allergy/AdvReac Type Severity Reaction Status Date / Time oxycodone [OXYCODONE] Allergy Mild ITCHING TO Verified 07/08/20 09:26 NOSE Review of Systems Review of Systems ROS Unobtainable: All systems reviewed & are unremarkable except as noted in HPI and below Patient History Medical History Postop check Neck mass Muscle ache Joint swelling Joint pain Neck mass Headache Former smoker Facet arthropathy, lumbosacral Shoulder pain Anxiety Depression Sciatica Easy bruisability UTI (urinary tract infection) Acid reflux Nerve pain due to spinal stenosis History of revision of total replacement of right hip joint Elevated blood pressure reading without diagnosis of hypertension Trigeminal neuralgia Goiter Hip fracture, right Restless leg syndrome Chronic UTI History of anal fissures Surgical History H/O hemorrhoidectomy H/O: hysterectomy History of arthroplasty of right knee History of lumbar spinal fusion (07/28/17) History of total right hip arthroplasty (01/27/16) Hx of shoulder surgery S/P epidural steroid injection S/P left knee arthroscopy Family History Mother Congestive heart failure Family/Other No problems noted. Father Diabetes mellitus Social History household members: none Smoking Status: Former smoker alcohol intake: current Smoking Status: Former smoker alcohol intake frequency: holidays/special occasions only Substance Use Type: does not use Exam Initial Vital Signs Initial Vital Signs: Vital Signs Pulse Rate 72 04/14/23 10:24 Respiratory Rate 37 H 04/14/23 10:24 Pulse Oximetry 99 04/14/23 10:24 Const General: cooperative and No ill appearing HENPR Head: normal to inspection and normocephalic Resp Effort & Inspection: cough and tachypneic Auscultation: crackles, rhonchi and no wheezes Cardio Rate: regular rate Rhythm: regular rhythm GI Inspection: non-distended Skin General: no rashes or lesions noted Neuro General: patient alert, patient awake and moves all extremities Extrem General: normal to inspection and capillary refill normal Course Orders Ordered: ED Orders 04/14/23 10:24 XR chest 1V Stat EKG-12 Lead Stat RT Consult Eval and Treat Now 04/14/23 10:52 Complete Blood Count AUTO DIFF Stat Troponin & CK Cardiac Panel Stat 04/14/23 12:24 Comprehensive Metabolic Panel Stat Lipase Stat NT-proBNP (BNP-Adult 18+) Stat Procalcitonin Stat Discontinued Medications Albuterol (Albuterol 2.5 Mg/3 Ml Neb (Adult)) 2.5 mg INH NOW ONE Stop: 04/14/23 10:26 Last Admin: 04/14/23 10:30 Dose: 2.5 mg Documented By: ELÍAS Vital Signs Vital signs: Vital Signs - 8 hr 04/14/23 10:24 04/14/23 10:30 04/14/23 10:30 Temperature 98.5 F Pulse Rate 72 73 Respiratory Rate 37 H 18 Blood Pressure 129/64 111/55 L Pulse Oximetry 99 95 Oxygen Delivery Method Room Air 04/14/23 10:30 04/14/23 10:32 04/14/23 11:00 Temperature Pulse Rate 70 66 Respiratory Rate 22 22 Blood Pressure 126/72 Pulse Oximetry 94 95 Oxygen Delivery Method Room Air 04/14/23 11:00 04/14/23 11:12 04/14/23 11:12 Temperature Pulse Rate 71 70 Respiratory Rate 29 H 21 Blood Pressure 142/66 H Pulse Oximetry 94 94 Oxygen Delivery Method 04/14/23 11:30 04/14/23 11:30 04/14/23 12:00 Temperature Pulse Rate 69 Respiratory Rate 26 H Blood Pressure 131/63 148/67 H Pulse Oximetry 91 Oxygen Delivery Method 04/14/23 12:00 04/14/23 12:30 04/14/23 13:00 Temperature Pulse Rate 72 71 71 Respiratory Rate 24 22 Blood Pressure Pulse Oximetry 91 93 96 Oxygen Delivery Method Room Air 04/14/23 13:30 Temperature Pulse Rate 72 Respiratory Rate Blood Pressure Pulse Oximetry 94 Oxygen Delivery Method Medical Decision Making Lab Data Lab results reviewed: Yes I reviewed the patient's lab results. 04/14/23 10:52 04/14/23 12:24 Labs: Lab Results 04/14/23 04/14/23 04/14/23 Range/Units 05:48 10:52 12:24 WBC 11.7 H (4.5-11.0) X10^3/uL RBC 4.21 (4.0-5.2) X10^6/uL Hgb 11.8 L (12.0-16.0) g/dL Hct 35.7 L (36-46) % MCV 84.8 (80-100) fL MCH 28.2 (26-34) PG MCHC 33.2 (30-36) % RDW 14.6 (11.6-14.8) % Plt Count 241 (150-400) X10^3/uL Neut % (Auto) 76.1 H (50-75) % Lymph % (Auto) 18.6 L (25-40) % [place] % (Auto) 4.4 (3-14) % Eos % (Auto) 0.2 L (2-4) % Baso % (Auto) 0.7 (0-2) % Neut # (Auto) 8900 H (6986-7585) /uL Lymph # (Auto) 2200 (8761-3349) /uL [place] # (Auto) 500 (0-900) /uL Eos # (Auto) 0 (0-450) /uL Baso # (Auto) 100 (0-100) /uL Sodium 134 L (137-145) mmol/L Potassium 3.9 (3.4-5.1) mmol/L Chloride 98 (98-107) mmol/L Carbon Dioxide 30 (22-32) mmol/L BUN 23 H (7-17) mg/dL Creatinine 0.89 (0.52-1.04) mg/dL Estimated GFR > 60 (>60) mL/min BUN/Creatinine Ratio 25.8 H (6-22) Glucose 179 H (80-110) mg/dL Calcium 8.9 (8.4-10.2) mg/dL Total Bilirubin 0.6 (0.2-1.3) mg/dL AST 34 (14-36) IU/L ALT 26 (<35) IU/L Alkaline Phosphatase 48 (38-126) U/L Total Creatine Kinase 51 (30-135) U/L Troponin I < 0.012 (0.01-0.034) ng/mL NT-Pro-B Natriuret Pep 544 H (<450) pg/mL Total Protein 6.4 (6.3-8.2) g/dL Albumin 3.5 (3.5-5.0) g/dL Globulin 2.9 (1.7-4.1) g/dL Albumin/Globulin Ratio 1.2 (1.0-2.8) Lipase 189 (23-300) U/L Procalcitonin 0.08 (<0.5) ng/mL SARS-CoV-2 (PCR) Negative (Negative) Influenza A (RT-PCR) Flu a positive H (NEGATIVE) Influenza B (RT-PCR) Flu b negative (NEGATIVE) RSV (PCR) Negative (Negative) Imaging Data Chest x-ray: Radiologist's Impression: PROCEDURE: XR CHEST 1V INDICATIONS: SOB TECHNIQUE: One view of the chest was acquired. COMPARISON: [facility], CR, XR CHEST 2V, 01/10/2022, 15:49. [facility], CR, XR CHEST 1V, 01/04/2022, 18:30. FINDINGS: Surgical changes and devices: None. Lungs and pleura: Lungs are clear. No pleural effusions or pneumothorax. Mediastinum: Mediastinal contours appear normal. Heart size is normal. Bones and chest wall: No suspicious bony lesions. Overlying soft tissues appear unremarkable. IMPRESSION: No acute cardiopulmonary abnormality is seen. ECG Data Attestation: I personally reviewed and interpreted this ECG as follows: Interpretation: Sinus rhythm Ventricular rate is 66 Normal axis Normal QRS LVH No ST T wave changes MDM Narrative Medical decision making narrative: Patient is not hypoxic. She does have coarse breath sounds that did not improve with the breathing treatment. She is afebrile. Chest x-ray is unremarkable. She is influenza A positive. There was no indication for antibiotics. She has had symptoms for longer than 48 hours. No indication for admission to the hospital. I did discuss this with the patient. Discussed return precautions and follow-up instructions. She expressed understanding and agreement. Discharge Plan Departure Patient Disposition: Home Clinical Impression: Influenza A Instructions: DI for Influenza -- Adult Activity Restrictions/Additional Instructions: Continue to take all of your medications as directed. You can take Tylenol/ibuprofen for any fevers or body aches. Be sure that you are drinking plenty of fluids. Contact your primary doctor for follow-up. Return to the emergency department for new or worsening symptoms. Prescriptions: No Action gabapentin 600 mg Tablet 600 mg PO BID atorvastatin 40 mg tablet 40 mg PO BEDTIME hydrocodone-acetaminophen 5-325 mg tablet 1 tab PO BID PRN (Reason: Pain (Scale Score 1-3)) sertraline 25 mg tablet 25 mg PO DAILY Patient Comments: TAKE 1 TABLET BY MOUTH ONCE DAILY metoprolol succinate 25 mg tablet extended release 24 hr 25 mg PO DAILY pregabalin 200 mg capsule 200 mg PO BID promethazine-codeine 6.25-10 mg/5 mL syrup 5 ml PO Q4-6H PRN (Reason: cough) Qty: 473 0RF Referrals: Manuela Garcia PA-C [Primary Care Provider] - Stand Alone Forms: Patient Portal/API
[2023-04-14 10:59] LABS: Add Manual Diff / Slide Review NO; Basophils Absolute Auto 100 /uL (0-100); Basophils Percent Auto 0.7 % (0-2); Eosinophils Absolute Auto 0 /uL (0-450); Eosinophils Percent Auto 0.2 % (2-4); Hematocrit 35.7 % (36-46); Hemoglobin 11.8 g/dL (12.0-16.0); Lymphocytes Absolute Auto 2200 /uL (1100-4500); Lymphocytes Percent Auto 18.6 % (25-40); Mean Corpuscular HGB Conc 33.2 % (30-36); Mean Corpuscular Hemoglobin 28.2 PG (26-34); Mean Corpuscular Volume 84.8 fL (80-100); Monocytes Absolute Auto 500 /uL (0-900); Monocytes Percent Auto 4.4 % (3-14); Neutrophils Absolute Auto 8900 /uL (1500-7000); Neutrophils Percent Auto 76.1 % (50-75); Platelet Count 241 X10^3/uL (150-400); Red Blood Cell Count 4.21 X10^6/uL (4.0-5.2); Red Cell Distribution Width 14.6 % (11.6-14.8); White Blood Cell Count 11.7 X10^3/uL (4.5-11.0)
[2023-04-14 11:12] LABS: Creatine Kinase 51 U/L (30-135)
--- NOTE | 2023-04-14 11:17 | PC.NURSE ---
Pt came to the emergency dept today because she has been experiencing worsening bronchitis sx over the past few days. This morning pt went to [facility] and they advised her to come to the emergency dept for further evaluation. Pt currently SOB and work of breathing noted while at rest and on exertion. Pt speaking in full sentences. Pt has hx of CHF and takes lasix. Bilateral crackles and expiratory wheezing noted on auscultation. Denies fever or n/v. Skin pink, warm and dry. Pt o2 95% on RA. a&ox4.
[2023-04-14 11:24] LABS: Troponin I < 0.012 ng/mL (0.01-0.034)
[2023-04-14 12:05] LABS: Influenza B - CEPHEID Flu B NEGATIVE (NEGATIVE); Respiratory Syncytial Virus Negative (Negative)
[2023-04-14 12:06] LABS: COVID-19 CEPHEID 4-PLEX PCR Negative (Negative); Influenza A - CEPHEID Flu A POSITIVE (NEGATIVE)
[2023-04-14 13:30] LABS: Procalcitonin 0.08 ng/mL (<0.5)
[2023-04-14 14:06] LABS: Alanine Aminotransferase 26 IU/L (<35); Albumin 3.5 g/dL (3.5-5.0); Albumin Globulin Ratio 1.2 (1.0-2.8); Alkaline Phosphatase 48 U/L (38-126); Aspartate Aminotransferase 34 IU/L (14-36); BUN Creatinine Ratio 25.8 (6-22); Bilirubin Total 0.6 mg/dL (0.2-1.3); Blood Urea Nitrogen 23 mg/dL (7-17); Calcium 8.9 mg/dL (8.4-10.2); Carbon Dioxide 30 mmol/L (22-32); Chloride 98 mmol/L (98-107); Estimated Glomerular Filt Rate > 60 mL/min (>60); Globulin 2.9 g/dL (1.7-4.1); Glucose 179 mg/dL (80-110); HEMOLYSIS < 15 (0-50); Lipase 189 U/L (23-300); Potassium 3.9 mmol/L (3.4-5.1); Sodium 134 mmol/L (137-145); Total Protein 6.4 g/dL (6.3-8.2)
[2023-04-14 14:15] LABS: NT-proBNP (BNP-Adult 18+) 544 pg/mL (<450)
== END 2023-04-14 15:20 | disposition home or self-care (01) ==
PROVIDERS: Emergency Provider Emergency Medicine; PCP Physician Assistant Medical
DX: J10.1 Influenza due to other identified influenza virus with other respiratory manifestations (principal); R07.9 Chest pain, unspecified; Z87.891 Personal history of nicotine dependence
CPT/HCPCS: 0241U; 36415; 71045; 80053; 82550; 83690; 83880; 84145; 84484; 85025; 93005; 94640; 99284; J7613

== ENCOUNTER → 2023-04-28 12:18 | Outpatient (CLI) | payer MEDICARE, OTHER, SELFPAY ==
[2023-04-19 14:20] VITALS: BMI 27.4
--- NOTE | 2023-04-28 12:21 | DI.CT.S_ITS ---
PROCEDURE: CT CHEST W CON INDICATIONS: Shortness of breath TECHNIQUE: After the administration of intravenous contrast, 5 mm thick sections acquired from the pulmonary apices to the posterior costophrenic angles. 1 mm axial lung, 5 mm thick coronal and sagittal reformats and 7 mm axial MIP were acquired. For radiation dose reduction, the following was used: automated exposure control, adjustment of mA and/or kV according to patient size. COMPARISON: None. FINDINGS: Image quality: Diagnostic. Lower Neck: No enlarged lymph nodes. Thyroid: Large, heterogeneous thyroid. Axillae: No enlarged lymph nodes. Chest Wall: Unremarkable. Bones: Diffuse idiopathic skeletal hyperostosis. Lungs and Pleura: No pneumothorax or pleural effusions. Calcified granuloma. No suspicious calcifications. Diffuse bronchial thickening. Heart: Heart size is enlarged. No pericardial effusion. Annular calcification of mitral valve. Two vessel coronary calcification. Thoracic Vessels: The aorta and pulmonary arteries demonstrate normal size. Mediastinum and She: No enlarged lymph nodes. Calcified hilar nodes. Esophagus: No wall thickening. Small hiatal hernia. Upper Abdomen: Calcified splenic and hepatic granuloma. IMPRESSION: Diffuse bronchial thickening, suggestive of infectious or inflammatory bronchitis. Large, heterogeneous thyroid most consistent with thyroiditis. Recommend dedicated outpatient thyroid ultrasound for complete characterization, if not performed in the past. Other chronic findings as above. Dictated by: Farhan Dow M.D. on 04/28/2023 at 15:17 Approved by: Farhan Dow M.D. on 04/28/2023 at 15:19
== END ==
PROVIDERS: PCP Physician Assistant Medical; Referring Provider Physician Assistant Medical; Visit Provider Physician Assistant Medical
DX: I34.81 Nonrheumatic mitral (valve) annulus calcification (principal); R06.02 Shortness of breath; I25.10 Atherosclerotic heart disease of native coronary artery without angina pectoris; K44.9 Diaphragmatic hernia without obstruction or gangrene; I51.7 Cardiomegaly
CPT/HCPCS: 71260; Q9967

== ENCOUNTER 2023-06-06 08:24 | Inpatient (IN) | payer MEDICARE, OTHER, SELFPAY ==
[2023-04-19 14:20] VITALS: BMI 27.4
[2023-06-06] VITALS (29 sets, daily range): BP systolic 112–171; BP diastolic 56–77; PULSE 58–86; RESP 18–20; TEMP 36.3–37.2; O2SAT 95–99; BMI 31.8
--- NOTE | 2023-06-06 08:35 | ED.FALL ---
HPI - Fall General Chief Complaint: Extremity Injury, Lower Stated Complaint: GLF Rt femur pain Time Seen by Provider: 06/06/23 08:27 Source: patient, family, EMS, RN notes reviewed and old records reviewed Mode of arrival: EMS Limitations: no limitations History of Present Illness HPI Narrative: 88-year-old female with history of COPD, CHF, prior femur fracture with repair on the right who presents with ground level fall. Patient states she fell onto her right side, she has pain in her mid thigh on the right side. She notes that her leg is shortened and externally rotated which is abnormal. She is pain with any form of movement. She denies numbness tingling down her leg. She also has some discomfort in her upper thoracic area but states she can move. She denies any injuries to other areas. Denies hitting her head. Does not take any anticoagulation. Denies any chest pain or shortness of breath. No nausea or vomiting, no other GI or urinary symptoms. Patient notes she had initial prior repair in [place] in 2006, has since had hip revision additional surgeries with Dr. Gabriella Tucker with orthopedic surgery locally. States her only other surgery has been left knee surgery. Allergic to Levaquin. No regular tobacco, alcohol or recreational drugs. She lives independently in an assisted living facility. She was met by her daughter. Related Data Home Medications Medication Instructions Recorded Confirmed gabapentin 600 mg tablet 600 mg PO BID 07/24/17 06/06/23 atorvastatin 40 mg tablet 40 mg PO BEDTIME 12/27/21 06/06/23 metoprolol succinate 25 mg 25 mg PO DAILY 12/27/21 06/06/23 tablet,extended release 24 hr pregabalin 200 mg capsule 200 mg PO BID 12/27/21 06/06/23 sertraline 25 mg tablet 25 mg PO DAILY 12/27/21 06/06/23 acetaminophen 500 mg tablet 500 mg PO DAILY PRN Pain (Scale 05/03/23 06/06/23 (Tylenol Extra Strength) Score 4-6) acetaminophen 650 mg 650 mg PO DAILY 05/03/23 06/06/23 tablet,extended release (Tylenol 8 Hour) docusate sodium 50 mg capsule 50 mg PO DAILY 05/03/23 06/06/23 (Colace Clear) furosemide 20 mg tablet 20 mg PO BID 05/03/23 06/06/23 losartan 25 mg tablet 25 mg PO DAILY 05/03/23 06/06/23 multivitamin 1 tab PO DAILY 05/03/23 06/06/23 aspirin 81 mg tablet 81 mg PO DAILY 06/06/23 06/06/23 omeprazole magnesium 20 mg 20 mg PO DAILY 06/06/23 06/06/23 tablet,delayed release (Prilosec OTC) Previous Rx's Medication Instructions Recorded fluticasone furoate 100 1 inh inhalation DAILY #60 ea 05/03/23 mcg-vilanterol 25 mcg/dose inhalation powder (Breo Ellipta) Allergies Allergy/AdvReac Type Severity Reaction Status Date / Time levofloxacin Allergy Mild Verified 05/03/23 14:05 Review of Systems Review of Systems ROS Unobtainable: All systems reviewed & are unremarkable except as noted in HPI and below Patient History Medical History Postop check Neck mass Muscle ache Joint swelling Joint pain Neck mass Headache Former smoker Facet arthropathy, lumbosacral Shoulder pain Anxiety Depression Sciatica Easy bruisability UTI (urinary tract infection) Acid reflux Nerve pain due to spinal stenosis History of revision of total replacement of right hip joint Elevated blood pressure reading without diagnosis of hypertension Trigeminal neuralgia Goiter Hip fracture, right Restless leg syndrome Chronic UTI History of anal fissures Surgical History Hx of shoulder surgery S/P epidural steroid injection 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 Father Diabetes mellitus Social History household members: none Smoking Status: Former smoker alcohol intake: current Smoking Status: Former smoker alcohol intake frequency: holidays/special occasions only Substance Use Type: does not use Exam Narrative Exam Narrative: GEN: Patient appears in moderate distress. HEAD: No evidence of trauma, no raccoon/Bergeron sign. NECK: Nontender, painless range of motion, trachea midline Neck Nexus criteria, no midline line tenderness, distracting injury, altered mental status, neuro deficit, recent EtOH. EYES: PERRLA, EOMI ENT: External inspection normal, trachea is midline, TM's are normal no hemotypanum, Nares are clear, no septal hematoma, no dental or oral injury, airway is normal and with normal occlusion, No bony tenderness RESP: Chest is nontender and has symmetric movement, no ecchymosis, breath sounds are normal no crackles, wheezes or rales CVS: Heart sounds are normal, no murmur noted, No JVD. ABG/GI: Nontender, soft, normal bowel sounds, no distention, no organomegaly, pelvic rock is positive NEURO: Oriented AOx3, neuro is grossly intact, sensation and motor is normal all 4 extremities moving, cranial nerves II through XII are intact, GCS is 15 PSYCH: Normal mood and affect SKIN: Intact, warm and dry, no crepitus and without decubitus BACK: No CVA tenderness, no vertebral tenderness, no step-off's, no crepitus EXT: Patient has tenderness over the right trochanter, right thigh, no tenderness over the right knee, tib-fib or foot. She is shortened and externally rotated on the right. Does have cap refill less than 2 seconds equal bilaterally with sensation to light touch. Does not have any other bony tenderness of the left lower extremity for bilateral upper extremities, with normal range of motion neurovascularly intact in the other extremities. Initial Vital Signs Initial Vital Signs: Vital Signs Pulse Rate 59 L 06/06/23 08:27 Pulse Oximetry 97 06/06/23 08:27 Course Orders Ordered: Acetaminophen (Acetaminophen 325 Mg Tablet) 650 mg PO Q6H PRN PRN Reason: Fever/Mild Pain (1-3) Diphenhydramine HCl (Diphenhydramine 50 Mg/Ml Vial) 25 mg IV Q4HR PRN PRN Reason: Itching Docusate Sodium (Docusate 100 Mg Capsule) 100 mg PO BID GENO Enoxaparin Sodium (Enoxaparin 40 Mg/0.4 Ml Syringe) 40 mg SUBCUT DAILY GENO Hydromorphone HCl (Hydromorphone 0.5 Mg Inj) 1 mg IV Q2H PRN PRN Reason: Pain, Severe (7-10) Last Admin: 06/06/23 17:06 Dose: 1 mg Documented By: CLP Naloxone HCl (Naloxone 0.4 Mg/Ml Vial) 0.2 mg IV Q2MIN PRN PRN Reason: Opiate Reversal Ondansetron HCl (Ondansetron 4 Mg Odt) 4 mg PO Q8HR PRN PRN Reason: Nausea And Vomiting Oxycodone HCl (Oxycodone Ir 5 Mg Tablet) 5 mg PO Q4HR PRN PRN Reason: Pain, Moderate (4-6) Sennosides (Sennosides 8.6 Mg Tablet) 17.2 mg PO BEDTIME GENO Discontinued Medications Sodium Chloride (Normal Saline 0.9%) 1,000 mls @ 125 mls/hr IV CONT GENO Last Infusion: 06/06/23 16:52 Dose: 0 mls/hr Documented By: Admin: 06/06/23 09:46 Dose: 125 mls/hr Documented By: ANAID Lorazepam (Lorazepam 2 Mg/Ml Inj) 1 mg IV NOW ONE Stop: 06/06/23 09:34 Last Admin: 06/06/23 09:37 Dose: 1 mg Documented By: ANAID Morphine Sulfate (Morphine 4 Mg/Ml Inj) 4 mg IV NOW ONE Stop: 06/06/23 08:37 Last Admin: 06/06/23 08:58 Dose: 4 mg Documented By: ANGEL Morphine Sulfate (Morphine 4 Mg/Ml Inj) 4 mg IV NOW ONE Stop: 06/06/23 13:37 Last Admin: 06/06/23 13:46 Dose: 4 mg Documented By: FELIPE Ondansetron HCl (Ondansetron 4 Mg/2 Ml Inj) 4 mg IV NOW ONE Stop: 06/06/23 08:37 Last Admin: 06/06/23 09:29 Dose: Not Given Documented By: ANAID Vital Signs Vital signs: Vital Signs - 8 hr 06/06/23 10:00 06/06/23 10:01 06/06/23 10:01 Pulse Rate 63 63 Blood Pressure 135/65 Pulse Oximetry 97 97 06/06/23 10:30 06/06/23 10:30 06/06/23 11:00 Pulse Rate 69 73 Blood Pressure 152/65 H Pulse Oximetry 99 95 06/06/23 11:00 06/06/23 11:30 06/06/23 11:30 Pulse Rate 68 Blood Pressure 146/67 H 153/68 H Pulse Oximetry 98 06/06/23 12:00 06/06/23 12:01 06/06/23 12:01 Pulse Rate 69 69 Blood Pressure 146/63 H Pulse Oximetry 98 98 06/06/23 12:30 06/06/23 12:30 06/06/23 13:00 Pulse Rate 67 69 Blood Pressure 159/68 H Pulse Oximetry 99 99 06/06/23 13:01 06/06/23 13:01 06/06/23 13:30 Pulse Rate 71 71 Blood Pressure 149/65 H Pulse Oximetry 99 98 06/06/23 14:00 06/06/23 14:00 06/06/23 14:30 Pulse Rate 67 71 Blood Pressure 135/60 Pulse Oximetry 98 97 06/06/23 14:30 06/06/23 15:00 06/06/23 15:00 Pulse Rate 69 Blood Pressure 150/65 H 140/63 Pulse Oximetry 98 - Fall Lab Data 06/06/23 08:40 06/06/23 08:40 Labs: Lab Results 06/06/23 06/06/23 Range/Units 08:35 08:40 WBC 9.7 (4.5-11.0) X10^3/uL RBC 4.20 (4.0-5.2) X10^6/uL Hgb 12.1 (12.0-16.0) g/dL Hct 36.5 (36-46) % MCV 86.9 (80-100) fL MCH 28.9 (26-34) PG MCHC 33.2 (30-36) % RDW 15.0 H (11.6-14.8) % Plt Count 264 (150-400) X10^3/uL Neut % (Auto) 66.0 (50-75) % Lymph % (Auto) 23.7 L (25-40) % Latimer % (Auto) 6.2 (3-14) % Eos % (Auto) 3.3 (2-4) % Baso % (Auto) 0.8 (0-2) % Neut # (Auto) 6400 (0634-7217) /uL Lymph # (Auto) 2300 (8224-5871) /uL Latimer # (Auto) 600 (0-900) /uL Eos # (Auto) 300 (0-450) /uL Baso # (Auto) 100 (0-100) /uL PT 12.8 H (9.4-12.5) SECONDS INR 1.1 (0.9-1.3) APTT 33 (25.1-36.5) SECONDS Sodium 139 (137-145) mmol/L Potassium 4.4 (3.4-5.1) mmol/L Chloride 106 (98-107) mmol/L Carbon Dioxide 25 (22-32) mmol/L BUN 21 H (7-17) mg/dL Creatinine 1.03 (0.52-1.04) mg/dL Estimated GFR 52 L (>60) mL/min BUN/Creatinine Ratio 20.4 (6-22) Glucose 150 H (80-110) mg/dL Calcium 9.2 (8.4-10.2) mg/dL Total Bilirubin 0.5 (0.2-1.3) mg/dL AST 59 H (14-36) IU/L ALT 50 H (<35) IU/L Alkaline Phosphatase 49 (38-126) U/L Total Protein 7.6 (6.3-8.2) g/dL Albumin 4.2 (3.5-5.0) g/dL Globulin 3.4 (1.7-4.1) g/dL Albumin/Globulin Ratio 1.2 (1.0-2.8) Lipase 186 (23-300) U/L Blood Type O Positive Antibody Screen Negative Imaging Data Chest x-ray: Radiologist's Impression: Close Hip X-Ray (Signed) Anthony Drummond - 06/06/23 Femur X-Ray (Signed) Anthony Drummond - 06/06/23 Chest X-Ray (Signed) Anthony Drummond - 06/06/[address] (Signed) Farhan Dow - 04/28/23 Chest X-Ray (Signed) Call,Jonathon - 04/14/23 Pelvis MRI (Signed) Benitez Caicedo - 07/14/22 Chest X-Ray (Signed) Alan Liang - 01/10/22 Chest X-Ray (Signed) Call,Jonathon - 01/04/22 Echocardiogram Ultrasound (Signed) Norm Campo - 12/27/21 Chest X-Ray (Signed) Jef Lopez - 12/27/21 Telemetry Strips 12/27/21 Thoracic Spine MRI (Signed) MyaAnjelica - 12/20/21 Lumbar Spine MRI (Signed) Jamil Diamond - 11/07/21 Brain MRI (Signed) Anjelica Roque - 08/11/21 Head Magnetic Resonance Angiography (Signed) JacksonTj - 08/03/21 Echocardiogram Ultrasound (Signed) Nida Gomes - 03/11/21 Hip MRI (Signed) Jameson Lee - 10/13/20 Bone Scan Nuclear Medicine (Signed) Maximilian Williamson - 03/23/20 Humerus X-Ray (Signed) Joselyn Carlson - 02/02/20 Shoulder MRI (Signed) Jameson Lee - 01/20/20 Head/Neck Ultrasound (Signed) Maximilian Williamson - 08/26/19 Injection Lumbar, Sacrum (Signed) Jameson Lee - 04/29/19 Facet Joint Injection X-Ray (Signed) Gage Summers - 04/04/19 Knee X-Ray (Signed) MelinaGgae livingston - 07/17/18 Facet Joint Injection X-Ray (Signed) Gage Summers - 06/06/18 Knee MRI (Signed) Gage Summers - 05/15/18 Injection Lumbar, Sacrum (Signed) Jameson Lee - 05/08/18 Injection Lumbar, Sacrum (Signed) Gage Summers - 04/10/18 Lumbar Spine MRI (Signed) Jameson Lee - 11/28/[address] (Signed) MelinaLizzyfatimah - 08/16/17 Lumbar Spine X-Ray (Signed) Jameson Lee - 07/28/17 Telemetry Strips 07/28/17 Launch?Image [address] [address] XRay Report Signed Patient: Krystyna Phillips MR#: [id number] : 1935 Acct:[id number] Age/Sex: 88 / F Date of Service: 06/06/23 Loc: ED Accession Number: [id number] Procedure: XR chest 1V Ordering Provider: Tanisha Hui D.O. PROCEDURE: XR CHEST 1V INDICATIONS: fall TECHNIQUE: One view of the chest was acquired. COMPARISON: [facility], , XR CHEST 1V, 04/14/2023, 10:40. FINDINGS: Surgical changes and devices: None. Lungs and pleura: Lungs are clear. No pleural effusions or pneumothorax. Mediastinum: Mediastinal contours appear normal. Heart size is normal. Bones and chest wall: No suspicious bony lesions. Overlying soft tissues appear unremarkable. IMPRESSION: No acute cardiopulmonary abnormality is seen. Dictated by: Anthony Drummond M.D. on 06/06/2023 at 9:59 Approved by: Anthony Drummond M.D. on 06/06/2023 at 9:59 Extremity x-ray #1: Radiologist's Impression: [address] [address] XRay Report Signed Patient: Krystyna Phillips MR#: [id number] : 1935 Acct:[id number] Age/Sex: 88 / F Date of Service: 06/06/23 Loc: ED Accession Number: [id number] Procedure: XR hip w pel if done RT 2V Ordering Provider: Tanisha Hui D.O. PROCEDURE: XR HIP W PEL IF DONE RT 2V INDICATIONS: left hip/femur pain TECHNIQUE: AP pelvis with lateral view(s) of the right hip(s). COMPARISON: [facility], , [id number] W PEL IF PERFORMED, 01/02/2017, 16:02. FINDINGS: Bones: Right hip arthroplasty has been performed. There is a mildly displaced comminuted fracture involving the subtrochanteric femur surrounding the right hip arthroplasty hardware. Soft tissues: The visualized bowel gas pattern is normal. No suspicious soft tissue calcifications. IMPRESSION: Periprosthetic right proximal femoral fracture. Dictated by: Anthony Drummond M.D. on 06/06/2023 at 10:22 Approved by: Anthony Drummond M.D. on 06/06/2023 at 10:22 Extremity x-ray #2: Radiologist's Impression: [address] [address] XRay Report Signed Patient: Krystyna Phillips MR#: [id number] : 1935 Acct:[id number] Age/Sex: 88 / F Date of Service: 06/06/23 Loc: ED Accession Number: [id number] Procedure: XR femur RT min 2V Ordering Provider: Tanisha Hui D.O. PROCEDURE: XR FEMUR RT MIN 2V INDICATIONS: hip/femur pain TECHNIQUE: 2 views of the femur were acquired. COMPARISON: [facility], , FEMUR TWO OR MORE VIEWS RIGHT, 01/02/2017, 16:02. FINDINGS: Bones: Comminuted mildly displaced periprosthetic fracture involving the subtrochanteric femur. ORIF of the distal femur. Right hip arthroplasty. Soft tissues: No suspicious soft tissue calcifications or masses. IMPRESSION: Periprosthetic right proximal femoral fracture. Dictated by: Anthony Drummond M.D. on 06/06/2023 at 10:20 Approved by: Anthony Drummond M.D. on 06/06/2023 at 10:21 MDM Narrative Medical decision making narrative: 88-year-old female with ground level fall. Patient has significant hardware, in her right extremity patient has shortening and rotation consistent with fracture. Labs show white count of 9.7 hemoglobin of 12, platelets of 264, INR is 1.1, sodium is 139 potassium 4 4 chloride 106 CO2 25 with a BUN 21 creatinine of 1.03, glucose of 150, AST ALT are 59 and 50 respectively, Otherwise negative LFTs. Chest x-ray shows no acute change. Hip x-ray, shows hardware in place but does appear to have a fracture through the proximal femoral shaft at the level of the stem. Femur x-ray 1005: Spoke with Dr. Sherwood who reviewed images. Does ask if we can contact [facility] to see if they would be willing to accept the patient has pretty complicated hardware and this would be a very difficult repair and patient might do much better and a larger facility. [facility], images pushed. Spoke with coordinator [id number]. Callback orthopedic surgery [facility], Dr. Calvin Olivia, discussed case potential for nonoperative treatment with toe-touch foot flat but could do surgery if significantly painful. Would be potentially helpful if any old x-rays for comparison. Did not feel CT would be helpful. We did find priors from 2017 pushed to [facility] and coordinator recontacted to update and share with Dr. Olivia. Will connect Dr. Sherwood through the transfer center once he is out of the OR. Updated family on plan, they are agreeable with the plan. Patient has had pain medications was quite painful and now that we have stopped moving her she is quite sleepy and requiring little bit of nasal cannula suspect that is from her medication. Dr. Sherwood spoke with Dr. Olivia. At this time patient has significant potential for morbidity with surgical fixation. Plan for nonoperative treatment admit here under Medicine with consultation with Orthopedic surgery and if failing nonoperative there is still potential for transfer for surgical fixation. Spoke with Dr. Arnold, hospitalist who accepts currently patient only meets observation criteria. Discharge Plan Departure Patient Disposition: Admitted as Observation Clinical Impression: Periprosthetic fracture of hip Admit Date/Time: 06/06/23 15:26 Admit Provider: Abdullahi Arnold
[2023-06-06 08:52] LABS: Add Manual Diff / Slide Review NO; Basophils Absolute Auto 100 /uL (0-100); Basophils Percent Auto 0.8 % (0-2); Eosinophils Absolute Auto 300 /uL (0-450); Eosinophils Percent Auto 3.3 % (2-4); Hematocrit 36.5 % (36-46); Hemoglobin 12.1 g/dL (12.0-16.0); Lymphocytes Absolute Auto 2300 /uL (1100-4500); Lymphocytes Percent Auto 23.7 % (25-40); Mean Corpuscular HGB Conc 33.2 % (30-36); Mean Corpuscular Hemoglobin 28.9 PG (26-34); Mean Corpuscular Volume 86.9 fL (80-100); Monocytes Absolute Auto 600 /uL (0-900); Monocytes Percent Auto 6.2 % (3-14); Neutrophils Absolute Auto 6400 /uL (1500-7000); Platelet Count 264 X10^3/uL (150-400); White Blood Cell Count 9.7 X10^3/uL (4.5-11.0)
[2023-06-06 08:58] LABS: INR 1.1 (0.9-1.3); Prothrombin Time 12.8 SECONDS (9.4-12.5)
[2023-06-06] MEDS: MORPHINE 4 MG/ML INJ IV ×2 (08:58→13:46)
[2023-06-06 09:00] LABS: PTT Partial Thromboplastin Tim 33 SECONDS (25.1-36.5)
[2023-06-06 09:03] LABS: Alanine Aminotransferase 50 IU/L (<35); Albumin 4.2 g/dL (3.5-5.0); Albumin Globulin Ratio 1.2 (1.0-2.8); Alkaline Phosphatase 49 U/L (38-126); Aspartate Aminotransferase 59 IU/L (14-36); BUN Creatinine Ratio 20.4 (6-22); Bilirubin Total 0.5 mg/dL (0.2-1.3); Blood Urea Nitrogen 21 mg/dL (7-17); Calcium 9.2 mg/dL (8.4-10.2); Carbon Dioxide 25 mmol/L (22-32); Chloride 106 mmol/L (98-107); Estimated Glomerular Filt Rate 52 mL/min (>60); Globulin 3.4 g/dL (1.7-4.1); Glucose 150 mg/dL (80-110); HEMOLYSIS < 15 (0-50); Lipase 186 U/L (23-300); Potassium 4.4 mmol/L (3.4-5.1); Sodium 139 mmol/L (137-145); Total Protein 7.6 g/dL (6.3-8.2)
[2023-06-06] MEDS: LORazepam 2 MG/ML INJ 1 MG IV (09:37)
[2023-06-06] MEDS: SODIUM CHLORIDE 0.9% 1,000 ML 125 ML IV (09:46)
--- NOTE | 2023-06-06 14:16 | PC.NURSE ---
RN updated pt's home medication list and updated Dr. Hui that pt is requesting home medications.
--- NOTE | 2023-06-06 15:36 | PM.HP.1 ---
History of Present Illness History of Present Illness Date Patient Seen: 06/06/23 Time Patient Seen: 18:20 Chief complaint: GLF Rt femur pain Narrative: This is an 86 year old female with PMH of CHFpEF, HTN, HLD, chronic bronchitis, chronic pain who presents to the ER after a fall. She denies any preceeding dizziness, chest pain, shortness of breath. She states she felt like her foot slipped when getting up from the couch around 6 am this morning. She was found to have a periprosthetic R femur fracture. After long discussion with orthopedics, orthopedics provider would like to trial conservative management with pain control, but if unable would transfer to for definitive surgical management. Admitted for pain control and trial of therapies. [facility] Medical History Postop check Neck mass Muscle ache Joint swelling Joint pain Neck mass Headache Former smoker Facet arthropathy, lumbosacral Shoulder pain Anxiety Depression Sciatica Easy bruisability UTI (urinary tract infection) Acid reflux Nerve pain due to spinal stenosis History of revision of total replacement of right hip joint Elevated blood pressure reading without diagnosis of hypertension Trigeminal neuralgia Goiter Hip fracture, right Restless leg syndrome Chronic UTI History of anal fissures Surgical History Hx of shoulder surgery S/P epidural steroid injection 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 Father Diabetes mellitus Social History household members: none Smoking Status: Former smoker alcohol intake: current Meds Home Medications and Allergies Home Medications Medication Instructions Recorded Confirmed Type gabapentin 600 mg tablet 600 mg PO BID 07/24/17 06/06/23 History atorvastatin 40 mg tablet 40 mg PO BEDTIME 12/27/21 06/06/23 History metoprolol succinate 25 mg 25 mg PO DAILY 12/27/21 06/06/23 History tablet,extended release 24 hr pregabalin 200 mg capsule 200 mg PO BID 12/27/21 06/06/23 History sertraline 25 mg tablet 25 mg PO DAILY 12/27/21 06/06/23 History acetaminophen 500 mg tablet 500 mg PO DAILY PRN Pain (Scale 05/03/23 06/06/23 History (Tylenol Extra Strength) Score 4-6) acetaminophen 650 mg 650 mg PO DAILY 05/03/23 06/06/23 History tablet,extended release (Tylenol 8 Hour) docusate sodium 50 mg capsule 50 mg PO DAILY 05/03/23 06/06/23 History (Colace Clear) fluticasone furoate 100 1 inh inhalation DAILY #60 ea 05/03/23 05/03/23 Rx mcg-vilanterol 25 mcg/dose inhalation powder (Breo Ellipta) furosemide 20 mg tablet 20 mg PO BID 05/03/23 06/06/23 History losartan 25 mg tablet 25 mg PO DAILY 05/03/23 06/06/23 History multivitamin 1 tab PO DAILY 05/03/23 06/06/23 History aspirin 81 mg tablet 81 mg PO DAILY 06/06/23 06/06/23 History omeprazole magnesium 20 mg 20 mg PO DAILY 06/06/23 06/06/23 History tablet,delayed release (Prilosec OTC) Allergies Allergy/AdvReac Type Severity Reaction Status Date / Time levofloxacin Allergy Mild Verified 05/03/23 14:05 Review of Systems Review of Systems Narrative: All other systems reviewed with the patient and are negative unless otherwise stated. Exam Vital Signs (past 8 hours): - 06/06/23 08:27 06/06/23 08:28 06/06/23 08:28 Temperature Pulse Rate 59 L 59 L Pulse Rate [Bilateral Dorsalis Pedis] Respiratory Rate Blood Pressure 169/77 H Pulse Oximetry 97 98 Oxygen Delivery Method 06/06/23 08:30 06/06/23 08:31 06/06/23 08:31 Temperature Pulse Rate 61 61 Pulse Rate [Bilateral Dorsalis Pedis] Respiratory Rate Blood Pressure 165/74 H Pulse Oximetry 97 97 Oxygen Delivery Method 06/06/23 08:32 06/06/23 08:42 06/06/23 09:25 Temperature 97.3 F L Pulse Rate 60 61 Pulse Rate [Bilateral Dorsalis Pedis] 62 Respiratory Rate 20 Blood Pressure 165/74 H Pulse Oximetry 98 98 Oxygen Delivery Method Room Air 06/06/23 09:25 06/06/23 09:30 06/06/23 09:31 Temperature Pulse Rate 58 L 58 L Pulse Rate [Bilateral Dorsalis Pedis] Respiratory Rate Blood Pressure 148/65 H Pulse Oximetry 99 98 Oxygen Delivery Method 06/06/23 09:31 06/06/23 10:00 06/06/23 10:01 Temperature Pulse Rate 63 63 Pulse Rate [Bilateral Dorsalis Pedis] Respiratory Rate Blood Pressure 115/59 L Pulse Oximetry 97 97 Oxygen Delivery Method 06/06/23 10:01 06/06/23 10:30 06/06/23 10:30 Temperature Pulse Rate 69 Pulse Rate [Bilateral Dorsalis Pedis] Respiratory Rate Blood Pressure 135/65 152/65 H Pulse Oximetry 99 Oxygen Delivery Method 06/06/23 11:00 06/06/23 11:00 06/06/23 11:30 Temperature Pulse Rate 73 68 Pulse Rate [Bilateral Dorsalis Pedis] Respiratory Rate Blood Pressure 146/67 H Pulse Oximetry 95 98 Oxygen Delivery Method 06/06/23 11:30 06/06/23 12:00 06/06/23 12:01 Temperature Pulse Rate 69 69 Pulse Rate [Bilateral Dorsalis Pedis] Respiratory Rate Blood Pressure 153/68 H Pulse Oximetry 98 98 Oxygen Delivery Method 06/06/23 12:01 06/06/23 12:30 06/06/23 12:30 Temperature Pulse Rate 67 Pulse Rate [Bilateral Dorsalis Pedis] Respiratory Rate Blood Pressure 146/63 H 159/68 H Pulse Oximetry 99 Oxygen Delivery Method 06/06/23 13:00 06/06/23 13:01 06/06/23 13:01 Temperature Pulse Rate 69 71 Pulse Rate [Bilateral Dorsalis Pedis] Respiratory Rate Blood Pressure 149/65 H Pulse Oximetry 99 99 Oxygen Delivery Method 06/06/23 13:30 06/06/23 14:00 06/06/23 14:00 Temperature Pulse Rate 71 67 Pulse Rate [Bilateral Dorsalis Pedis] Respiratory Rate Blood Pressure 135/60 Pulse Oximetry 98 98 Oxygen Delivery Method 06/06/23 14:30 06/06/23 14:30 Temperature Pulse Rate 71 Pulse Rate [Bilateral Dorsalis Pedis] Respiratory Rate Blood Pressure 150/65 H Pulse Oximetry 97 Oxygen Delivery Method Oxygen Delivery Method Room Air Narrative Exam Narrative: General:? Patient is well developed and well nourished, in no distress at this time. Lungs:? CTA b/l no wheezing rhonchi or rales. Cardio:?RRR no m/r/g. Abdomen: S NT ND. Extremities: No edema or joint effusions. R leg short and externally rotated Objective Labs 06/06/23 08:40 06/06/23 08:40 Labs: Laboratory Results - last 24 hr 06/06/23 06/06/23 08:35 08:40 WBC 9.7 RBC 4.20 Hgb 12.1 Hct 36.5 MCV 86.9 MCH 28.9 MCHC 33.2 RDW 15.0 H Plt Count 264 Neut % (Auto) 66.0 Lymph % (Auto) 23.7 L [place] % (Auto) 6.2 Eos % (Auto) 3.3 Baso % (Auto) 0.8 Neut # (Auto) 6400 Lymph # (Auto) 2300 [place] # (Auto) 600 Eos # (Auto) 300 Baso # (Auto) 100 PT 12.8 H INR 1.1 APTT 33 Sodium 139 Potassium 4.4 Chloride 106 Carbon Dioxide 25 BUN 21 H Creatinine 1.03 Estimated GFR 52 L BUN/Creatinine Ratio 20.4 Glucose 150 H Calcium 9.2 Total Bilirubin 0.5 AST 59 H ALT 50 H Alkaline Phosphatase 49 Total Protein 7.6 Albumin 4.2 Globulin 3.4 Albumin/Globulin Ratio 1.2 Lipase 186 Blood Type O Positive Antibody Screen Negative Assessment & Plan Assessment & Plan narrative: 1. R periprosthetic femur fracture - Per discussion with Dr. Sherwood, orthopedics, recommend conservative management strategy with pain control, TTWB RLE if possible, in hopes of avoiding surgery as surgery would be extensive and complex and is medically risky as would likely result in a large blood loss. Patient would go to if fails conservative management. - For now, pain control with tylenol, oxycodone, prn dilaudid for breakthrough. She states she is a bit more comfortable, but still in a lot of pain after initial IV medications. Suspect pain control will be difficult. - TTWB RLE with PT / OT, appreciate orthopedics management. - continue home pregabalin 200 mg BID and sertraline 2 chronic diastolic heart failure - continue home furosemide 20 mg PO BID, no signs of acute heart failure - continue home metoprolol, atorvastatin, losartan 3 HTN - continue home furosemide and metoprolol and losartan 4 HLD - continue home statin Code: Full, surrogate is Scarlett Cohen I have utilized all available immediate resources to obtain, update, or review the patient's current medications. DVT: lovenox daily Dispo: will be complex disposition, will have to see how pain management goes and ambulation trials. May need SNF, may need transfer to higher level facility if failing conservative management.
[2023-06-06] MEDS: HYDROMORPHONE 0.5 MG INJ 1 MG IV ×2 (17:06→22:57)
--- NOTE | 2023-06-06 18:01 | P.HP_ITS ---
History of Present Illness History of Present Illness Date Patient Seen: 06/06/23 Chief complaint: GLF Rt femur pain Narrative: Patient seen this afternoon in the emergency department. Daughter at bedside. Extensive history obtained largely from the daughter. Surgical history as outlined below: -1993: Right total knee arthroplasty -2006: Open reduction internal fixation of right periprosthetic femur fracture above total knee -2015: Right hip uncemented hemiarthroplasty for femoral neck fracture -2016: Open reduction internal fixation of right inter prosthetic femoral stress fracture Family reports that the patient fell last night after getting up from bed. She has not used ambulatory aids typically in the recent past. She occasionally uses a cane but predominantly walks without support. She lives independently. She has had some cardiac issues over the last few years but has been able to maintain her independence. Since the onset of this injury she has had right femur pain. She notes that it worsens with movement and is partially alleviated by rest. It does not radiate. [facility] Medical History Postop check Neck mass Muscle ache Joint swelling Joint pain Neck mass Headache Former smoker Facet arthropathy, lumbosacral Shoulder pain Anxiety Depression Sciatica Easy bruisability UTI (urinary tract infection) Acid reflux Nerve pain due to spinal stenosis History of revision of total replacement of right hip joint Elevated blood pressure reading without diagnosis of hypertension Trigeminal neuralgia Goiter Hip fracture, right Restless leg syndrome Chronic UTI History of anal fissures Surgical History Hx of shoulder surgery S/P epidural steroid injection 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 Father Diabetes mellitus Social History household members: none Smoking Status: Former smoker alcohol intake: current Meds Home Medications and Allergies Home Medications Medication Instructions Recorded Confirmed Type gabapentin 600 mg tablet 600 mg PO BID 07/24/17 06/06/23 History atorvastatin 40 mg tablet 40 mg PO BEDTIME 12/27/21 06/06/23 History metoprolol succinate 25 mg 25 mg PO DAILY 12/27/21 06/06/23 History tablet,extended release 24 hr pregabalin 200 mg capsule 200 mg PO BID 12/27/21 06/06/23 History sertraline 25 mg tablet 25 mg PO DAILY 12/27/21 06/06/23 History acetaminophen 500 mg tablet 500 mg PO DAILY PRN Pain (Scale 05/03/23 06/06/23 History (Tylenol Extra Strength) Score 4-6) acetaminophen 650 mg 650 mg PO DAILY 05/03/23 06/06/23 History tablet,extended release (Tylenol 8 Hour) docusate sodium 50 mg capsule 50 mg PO DAILY 05/03/23 06/06/23 History (Colace Clear) fluticasone furoate 100 1 inh inhalation DAILY #60 ea 05/03/23 05/03/23 Rx mcg-vilanterol 25 mcg/dose inhalation powder (Breo Ellipta) furosemide 20 mg tablet 20 mg PO BID 05/03/23 06/06/23 History losartan 25 mg tablet 25 mg PO DAILY 05/03/23 06/06/23 History multivitamin 1 tab PO DAILY 05/03/23 06/06/23 History aspirin 81 mg tablet 81 mg PO DAILY 06/06/23 06/06/23 History omeprazole magnesium 20 mg 20 mg PO DAILY 06/06/23 06/06/23 History tablet,delayed release (Prilosec OTC) Allergies Allergy/AdvReac Type Severity Reaction Status Date / Time levofloxacin Allergy Mild Verified 05/03/23 14:05 Review of Systems Review of Systems ROS: Yes All systems reviewed with the patient and are negative except as otherwise documented Exam Vital Signs (past 8 hours): - 06/06/23 10:30 06/06/23 10:30 06/06/23 11:00 Temperature Pulse Rate 69 73 Respiratory Rate Blood Pressure 152/65 H Pulse Oximetry 99 95 Oxygen Flow Rate 06/06/23 11:00 06/06/23 11:30 06/06/23 11:30 Temperature Pulse Rate 68 Respiratory Rate Blood Pressure 146/67 H 153/68 H Pulse Oximetry 98 Oxygen Flow Rate 06/06/23 12:00 06/06/23 12:01 06/06/23 12:01 Temperature Pulse Rate 69 69 Respiratory Rate Blood Pressure 146/63 H Pulse Oximetry 98 98 Oxygen Flow Rate 06/06/23 12:30 06/06/23 12:30 06/06/23 13:00 Temperature Pulse Rate 67 69 Respiratory Rate Blood Pressure 159/68 H Pulse Oximetry 99 99 Oxygen Flow Rate 06/06/23 13:01 06/06/23 13:01 06/06/23 13:30 Temperature Pulse Rate 71 71 Respiratory Rate Blood Pressure 149/65 H Pulse Oximetry 99 98 Oxygen Flow Rate 06/06/23 14:00 06/06/23 14:00 06/06/23 14:30 Temperature Pulse Rate 67 71 Respiratory Rate Blood Pressure 135/60 Pulse Oximetry 98 97 Oxygen Flow Rate 06/06/23 14:30 06/06/23 15:00 06/06/23 15:00 Temperature Pulse Rate 69 Respiratory Rate Blood Pressure 150/65 H 140/63 Pulse Oximetry 98 Oxygen Flow Rate 06/06/23 15:30 06/06/23 15:30 06/06/23 16:00 Temperature Pulse Rate 69 Respiratory Rate Blood Pressure 161/70 H 171/70 H Pulse Oximetry 96 Oxygen Flow Rate 06/06/23 16:00 06/06/23 17:23 Temperature 99.0 F Pulse Rate 69 65 Respiratory Rate 18 Blood Pressure 152/71 H Pulse Oximetry 97 97 Oxygen Flow Rate 0 Oxygen Delivery Method Room Air Oxygen Flow Rate 0 Narrative Exam Narrative: Right lower extremity examination: All surgical incisions from prior surgeries well healed. No open wounds. Range of motion examination deferred given known injury. Sensation intact to light touch in L2 through S1 nerve distributions Const General: cooperative Orientation: alert and awake HENHI Head: normal to inspection Ears: hearing grossly normal bilaterally Eyes General: appearance normal, both eyes and all related structures Neck Neck: normal visual inspection Resp Effort & Inspection: normal respiratory effort and able to speak in complete sentences Cardio Pulses: other (peripheral pulses present) Skin Lesions: no lesions Rashes: no rashes Neuro General: patient alert, patient awake and moves all extremities Psych Appearance: grossly normal Objective Imaging Right femur: My impression: Right femur radiographs demonstrate an uncemented hip hemiarthroplasty above a lateral femur plate. At the junction between the hemiarthroplasty and the femoral plate there is varus remodeling and callus formation in the lateral femur. The total knee arthroplasty below the plate has remained stable on serial radiographs over the last 7 years. The hip hemiarthroplasty does not appear to have significantly subsided with the most recent fracture which is a periprosthetic fracture around the femoral stem. It involves the calcar as well as lateral cortex. Labs 06/06/23 08:40 06/06/23 08:40 Labs: Laboratory Results - last 24 hr 06/06/23 06/06/23 08:35 08:40 WBC 9.7 RBC 4.20 Hgb 12.1 Hct 36.5 MCV 86.9 MCH 28.9 MCHC 33.2 RDW 15.0 H Plt Count 264 Neut % (Auto) 66.0 Lymph % (Auto) 23.7 L [place] % (Auto) 6.2 Eos % (Auto) 3.3 Baso % (Auto) 0.8 Neut # (Auto) 6400 Lymph # (Auto) 2300 [place] # (Auto) 600 Eos # (Auto) 300 Baso # (Auto) 100 PT 12.8 H INR 1.1 APTT 33 Sodium 139 Potassium 4.4 Chloride 106 Carbon Dioxide 25 BUN 21 H Creatinine 1.03 Estimated GFR 52 L BUN/Creatinine Ratio 20.4 Glucose 150 H Calcium 9.2 Total Bilirubin 0.5 AST 59 H ALT 50 H Alkaline Phosphatase 49 Total Protein 7.6 Albumin 4.2 Globulin 3.4 Albumin/Globulin Ratio 1.2 Lipase 186 Blood Type O Positive Antibody Screen Negative Assessment & Plan Assessment and plan (1) Periprosthetic fracture of hip: Status: Acute Plan Right hip inter prosthetic fracture, Bryant B2 versus B1 This patient has a very challenging issue. She has varus remodeling of the stress riser the junction between her lateral plate and her hip hemiarthroplasty prior to her new fracture. This new fracture clearly goes around the stem both medially and laterally. Fortunately the stem has not subsided. Given the morbidity which would be involved with revision arthroplasty to address this fracture, particularly given the varus remodeling at the junction between the plate and the hip hemiarthroplasty, I did not feel that revision arthroplasty would be appropriate in her case. I recommended revision fixation with a new lateral plate extending up to the periprosthetic fracture fixing it in place while leaving the existing hip hemiarthroplasty stem in place. I reached out to our tertiary referral center at [place] today to attempt to arrange transfer for this case. I felt that a higher level of care would be appropriate given the large fixation construct that would be necessary including constructing a wave plate to accommodate the varus remodeling in the lateral femur. I personally spoke with the on-call orthopedist from the [facility] the [facility] who felt that a trial of nonoperative treatment would be appropriate. He recommended 6-8 weeks of protected weight-bearing. The patient has been admitted here and we will plan to have her mobilize with a walker while maintaining protected weight-bearing. I will plan to repeat radiographs following mobilization in several days. Additionally it may be helpful to start the patient on Forteo to stimulate additional bone deposition around the area of the fracture and aid in consolidation and resolution of her pain. Should she have a failure of nonoperative treatment we would re-initiate the transfer process [facility] for consideration revision plating likely with maintenance of her hemiarthroplasty and total knee arthroplasty
--- NOTE | 2023-06-06 18:22 | PC.NURSE ---
Patient brought up from ER to room 226, oriented to room and call light. Aldana in place, VSS. Medicated with IV dilaudid for severe pain, with relief to a 3/10 level, and patient says her pain is now peaceful when laying still. Patient eating dinner with the assistance of her daughter. Incentive spirometer use discussed, patient states understanding and it was left within reach on her bedside table. Call light within reach.
[2023-06-06] MEDS: METOPROLOL ER 25 MG TABLET PO (18:56)
[2023-06-06] MEDS: PREGABALIN 50 MG CAPSULE 200 MG PO (20:17)
[2023-06-06] MEDS: SENNOSIDES 8.6 MG TABLET 17.2 MG PO (20:18)
[2023-06-06] MEDS: GABAPENTIN 600 MG TABLET PO (20:18)
[2023-06-06] MEDS: FUROSEMIDE 20 MG TABLET PO (20:18)
[2023-06-06] MEDS: ATORVASTATIN 20 MG TABLET 40 MG PO (20:18)
[2023-06-06] MEDS: OXYCODONE IR 5 MG TABLET PO (20:18)
[2023-06-06] MEDS: DOCUSATE 100 MG CAPSULE PO (20:18)
[2023-06-06] MEDS: methocarbamoL 500 MG TABLET 750 MG PO (20:19)
[2023-06-06] MEDS: diphenhydrAMINE 50 MG/ML VIAL 25 MG IV (23:06)
[2023-06-07] VITALS (13 sets, daily range): BP systolic 97–118; BP diastolic 53–91; PULSE 79–102; RESP 16–25; TEMP 36.3–37.1; O2SAT 90–97
[2023-06-07] MEDS: ONDANSETRON 4 MG ODT PO ×2 (02:13→11:22)
[2023-06-07] MEDS: HYDROMORPHONE 0.5 MG INJ 1 MG IV ×2 (02:13→04:58)
[2023-06-07] MEDS: methocarbamoL 500 MG TABLET 750 MG PO ×3 (04:13→20:53)
[2023-06-07 04:38] LABS: Add Manual Diff / Slide Review NO; Basophils Absolute Auto 0 /uL (0-100); Basophils Percent Auto 0.3 % (0-2); Eosinophils Absolute Auto 100 /uL (0-450); Hematocrit 31.2 % (36-46); Hemoglobin 10.3 g/dL (12.0-16.0); Lymphocytes Absolute Auto 3600 /uL (1100-4500); Lymphocytes Percent Auto 29.9 % (25-40); Mean Corpuscular HGB Conc 33.1 % (30-36); Mean Corpuscular Hemoglobin 28.9 PG (26-34); Mean Corpuscular Volume 87.4 fL (80-100); Monocytes Absolute Auto 1200 /uL (0-900); Monocytes Percent Auto 9.5 % (3-14); Neutrophils Absolute Auto 7200 /uL (1500-7000); Neutrophils Percent Auto 59.3 % (50-75); Platelet Count 269 X10^3/uL (150-400); Red Blood Cell Count 3.57 X10^6/uL (4.0-5.2); Red Cell Distribution Width 15.4 % (11.6-14.8); White Blood Cell Count 12.1 X10^3/uL (4.5-11.0)
[2023-06-07 05:06] LABS: Alanine Aminotransferase 44 IU/L (<35); Albumin 3.6 g/dL (3.5-5.0); Albumin Globulin Ratio 1.2 (1.0-2.8); Alkaline Phosphatase 42 U/L (38-126); Aspartate Aminotransferase 52 IU/L (14-36); BUN Creatinine Ratio 28.2 (6-22); Bilirubin Total 0.8 mg/dL (0.2-1.3); Blood Urea Nitrogen 31 mg/dL (7-17); Calcium 8.6 mg/dL (8.4-10.2); Carbon Dioxide 29 mmol/L (22-32); Chloride 102 mmol/L (98-107); Estimated Glomerular Filt Rate 48 mL/min (>60); Globulin 3.1 g/dL (1.7-4.1); Glucose 170 mg/dL (80-110); HEMOLYSIS < 15 (0-50); Magnesium 1.7 mg/dL (1.6-2.3); Potassium 4.8 mmol/L (3.4-5.1); Sodium 135 mmol/L (137-145); Total Protein 6.7 g/dL (6.3-8.2)
[2023-06-07] MEDS: PANTOPRAZOLE DR 20 MG TABLET PO (08:27)
[2023-06-07] MEDS: SERTRALINE 50 MG TABLET 25 MG PO (09:30)
[2023-06-07] MEDS: ENOXAPARIN 40 MG/0.4 ML SYRINGE SUBCUT (09:30)
[2023-06-07] MEDS: METOPROLOL ER 25 MG TABLET PO (09:30)
[2023-06-07] MEDS: MULTIVITAMIN 1 TABLET 1 TAB PO (09:30)
[2023-06-07] MEDS: PREGABALIN 50 MG CAPSULE 200 MG PO ×2 (09:30→20:54)
[2023-06-07] MEDS: ASPIRIN EC 81 MG TABLET PO (09:30)
[2023-06-07] MEDS: FUROSEMIDE 20 MG TABLET PO ×2 (09:31→20:53)
[2023-06-07] MEDS: GABAPENTIN 600 MG TABLET PO ×2 (09:31→20:53)
[2023-06-07] MEDS: DOCUSATE 100 MG CAPSULE PO ×2 (09:31→20:53)
[2023-06-07] MEDS: LOSARTAN 25 MG TABLET PO (09:31)
--- NOTE | 2023-06-07 11:43 | DI.RAD.S_ITS ---
PROCEDURE: XR CHEST 1V INDICATIONS: chest pain, emesis TECHNIQUE: One view of the chest was acquired. COMPARISON: [facility], CR, XR CHEST 1V, 06/06/2023, 9:01. FINDINGS: Surgical changes and devices: None. Lungs and pleura: Lungs are clear. No pleural effusions or pneumothorax. Mediastinum: Mediastinal contours appear normal. Heart size is normal. Bones and chest wall: No suspicious bony lesions. Overlying soft tissues appear unremarkable. IMPRESSION: Stable radiographic evaluation of the chest without acute cardiopulmonary abnormalities or focal airspace disease. Dictated by: Rodney Malin M.D. on 06/07/2023 at 12:25 Approved by: Rodney Malin M.D. on 06/07/2023 at 12:26
[2023-06-07] MEDS: MAG HYDROX/ALUM/SIMETH 30 ML UDC PO ×2 (11:52→23:07)
[2023-06-07] MEDS: PANTOPRAZOLE 40 MG VIAL IV ×2 (11:52→20:53)
--- NOTE | 2023-06-07 12:47 | PT-IP ANOTE ---
PT eval order received and EMR reviewed. checked on pt and pt having chest pain and difficulty breathing and nurse in room. pt on hold for this morning and will f/u this afternoon.
--- NOTE | 2023-06-07 13:06 | P.PN_ITS ---
Subjective Subjective Date Patient Seen: 06/07/23 Time Patient Seen: 13:09 Interval history: Extensive surgical history taken from our office notes as well as Dr Sherwood's H&P: -1993: Right total knee arthroplasty -2006: Open reduction internal fixation of right periprosthetic femur fracture above total knee -2016: Right hip uncemented hemiarthroplasty for femoral neck fracture at [facility] -2017: Revision of right hip femoral component with Open reduction internal fixation of right inter prosthetic femoral stress fracture; this was performed by Dr Gabriella Tucker. -2018: L3-4 laminectomy and L4-[address] Mika Barrett On my visit, Krystyna is sitting up comfortably in bed with lunch at her side. She says she recently vomited and is now feeling better; no more burning sensation in her stomach. Exam Vital Signs (past 8 hours): - 06/07/23 06:00 06/07/23 08:00 06/07/23 09:30 Temperature 98.6 F Pulse Rate 92 H 87 Respiratory Rate 18 Blood Pressure 118/60 118/60 Pulse Oximetry 94 97 Oxygen Delivery Method Nasal Cannula Oxygen Flow Rate 2 2 06/07/23 09:31 06/07/23 09:52 06/07/23 10:00 Temperature Pulse Rate 87 87 Respiratory Rate Blood Pressure 118/60 Pulse Oximetry Oxygen Delivery Method Nasal Cannula Oxygen Flow Rate 06/07/23 10:00 06/07/23 12:00 Temperature Pulse Rate 89 Respiratory Rate 25 H Blood Pressure 113/91 H Pulse Oximetry 96 94 Oxygen Delivery Method Nasal Cannula Oxygen Flow Rate 2 0 Oxygen Delivery Method Nasal Cannula Oxygen Flow Rate 0 Narrative Exam Narrative: Right PF and EHL intact. 0/5 DF. Does not bend at the knee. Right hip is externally rotated and not examined d/t fracture. Objective Labs 06/07/23 04:05 06/07/23 04:05 Labs: Laboratory Results - last 24 hr 06/07/23 04:05 WBC 12.1 H RBC 3.57 L Hgb 10.3 L Hct 31.2 L MCV 87.4 MCH 28.9 MCHC 33.1 RDW 15.4 H Plt Count 269 Neut % (Auto) 59.3 Lymph % (Auto) 29.9 [place] % (Auto) 9.5 Eos % (Auto) 1.0 L Baso % (Auto) 0.3 Neut # (Auto) 7200 H Lymph # (Auto) 3600 [place] # (Auto) 1200 H Eos # (Auto) 100 Baso # (Auto) 0 Sodium 135 L Potassium 4.8 Chloride 102 Carbon Dioxide 29 BUN 31 H Creatinine 1.10 H Estimated GFR 48 L BUN/Creatinine Ratio 28.2 H Glucose 170 H Calcium 8.6 Magnesium 1.7 Total Bilirubin 0.8 AST 52 H ALT 44 H Alkaline Phosphatase 42 Total Protein 6.7 Albumin 3.6 Globulin 3.1 Albumin/Globulin Ratio 1.2 PFSH Medical History Postop check Neck mass Muscle ache Joint swelling Joint pain Neck mass Headache Former smoker Facet arthropathy, lumbosacral Shoulder pain Anxiety Depression Sciatica Easy bruisability UTI (urinary tract infection) Acid reflux Nerve pain due to spinal stenosis History of revision of total replacement of right hip joint Elevated blood pressure reading without diagnosis of hypertension Trigeminal neuralgia Goiter Hip fracture, right Restless leg syndrome Chronic UTI History of anal fissures Surgical History Hx of shoulder surgery S/P epidural steroid injection 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 Father Diabetes mellitus Social History household members: none Smoking Status: Former smoker alcohol intake: current Assessment & Plan Assessment and plan (1) Periprosthetic fracture of hip: Status: Acute Plan: The patient has a new periprosthetic hip fracture. Dr Sherwood spoke at length to the orthopedist at [facility] yesterday, who recommended 6-8 weeks of protected weight-bearing. The patient has been admitted here and we will plan to have her mobilize with a walker while maintaining toe-touch weight-bearing. The current plan is to repeat radiographs once the pt has ambulated a few times with PT (Dr Sherwood will order). Should she have a failure of nonoperative treatment we would re-initiate the transfer process [facility] for consideration revision plating likely with maintenance of her hemiarthroplasty and total knee arthroplasty. I discussed this with the patient, who is adamant that she is unable to move at her hip at all and that the pain she will experience in working w/ PT will be unbearable. I encouraged her to at least try and let her know that if nonoperative treatment fails, we will initiate a transfer. She insists she only wants the best care. It may be helpful to start the patient on Forteo to stimulate additional bone deposition around the area of the fracture and aid in consolidation and resolution of her pain. Pain control and VTE prophylaxis per hospitalist service. She is currently receiving enoxaparin.
[2023-06-07] MEDS: OXYCODONE IR 5 MG TABLET PO ×2 (13:26→20:54)
--- NOTE | 2023-06-07 13:28 | PT.IIE ---
Current Diagnoses Periprosthetic fracture around other internal prosthetic joint, initial encounter (06/06/23) Presence of unspecified artificial hip joint (06/06/23) Surgical History (Last Reviewed 06/06/23 @ 18:21 by Abdullahi Arnold DO) H/O hemorrhoidectomy H/O: hysterectomy History of arthroplasty of right knee History of lumbar spinal fusion (07/28/17) History of total right hip arthroplasty (01/27/16) Hx of shoulder surgery S/P epidural steroid injection S/P left knee arthroscopy Medical History (Last Reviewed 06/06/23 @ 18:21 by Abdullahi Arnold DO) Acid reflux Anxiety Chronic UTI Depression Easy bruisability Elevated blood pressure reading without diagnosis of hypertension Facet arthropathy, lumbosacral Former smoker Goiter Headache Hip fracture, right History of anal fissures History of revision of total replacement of right hip joint Joint pain Joint swelling Muscle ache Neck mass Neck mass Nerve pain due to spinal stenosis Postop check Restless leg syndrome Sciatica Shoulder pain Trigeminal neuralgia UTI (urinary tract infection) Physical Therapy Inpatient Evaluation/Re-Eval M1 PT/OT-IP Prior Functional Status Start: 06/07/23 15:28 Freq: NEEDED Status: Active Protocol: Document 06/07/23 13:28 AB (Rec: 06/07/23 15:58 AB [id number]) Medical Review Prior Functional Status Medical History Reviewed Yes Communication able to make needs known; POARCH Mobility and Gait pt stated that she was modified independent with all mobilities and ambulation without AD indoors with occasional use of SPC depending on how RLE feels; uses a SPC for outdoor mobility Social History Household Members none Living Arrangements House Number of Floors (Floors) One Floor Number of Stairs To Enter/Railing? ramp to enter Home Environment Standard Height Toilet,Walk in Shower,Built-In Shower Seat, Ramp Home Equipment Four Wheel Walker,Straight Cane,Raised Toilet Seat w/ Armrests,Shower Seat with Backrest,Hand Held Shower,Grab Bars Near Toilet,Grab Bars In Shower Additional Social History Comment R side bed cane pt usually wears R thigh wraps for support per pt M2 PT-IP Current Condition Start: 06/07/23 15:28 Freq: NEEDED Status: Active Protocol: Document 06/07/23 13:28 AB (Rec: 06/07/23 15:58 AB [id number]) Physical Therapy Current Condition Current Condition Evaluation Date 06/07/23 Treatment Diagnosis GLF; R periprosthetic fx; difficulty in walking Onset Date 06/06/23 M3 PT-IP Subjective Start: 06/07/23 15:28 Freq: NEEDED Status: Active Protocol: Document 06/07/23 13:28 AB (Rec: 06/07/23 15:58 AB [id number]) Subjective Physical Therapy Visit Type Type Initial Evaluation Visit Start Time 13:28 Visit Stop Time 14:40 Number of COAL WEIGHER Visits 0 Physical Therapy Visit Comments Patient Comments agreeable to do PT Therapy Pain Assessment Pain When Pain Assessed At Rest Location Right Hip Scale Used increases with mobility Pain Behaviors Calling Out,Facial Grimacing, Guarding,Holding Area,Wincing Pain Management Techniques Distraction,Modification of Treatment,Re-positioning, Timing of Activity with Medications M4 PT-IP Mobility and Gait Start: 06/07/23 15:28 Freq: NEEDED Status: Active Protocol: Document 06/07/23 13:28 AB (Rec: 06/07/23 15:58 AB [id number]) PT-Bed Mobility Assessment Supine to Sit Supine to Sit Maximum Assistance,Total Assistance,2 Person Assistance ,Head of Bed Elevated,Bedrails Sit to Supine Sit to Supine Total Assistance,2 Person Assistance,Bedrails Scooting Scooting to Edge of Bed Dependent Scooting Up and Down in Bed Dependent PT-Transfer Assessment Comments Mobility Comments pt supine in bed and daughter in room. pt stated that she has a lot of R hip pain and may not be able to do much but willing to try. pt requiring incremental slow small movements in moving RLE and with frequent rest breaks. pt completed supine to sit max A x 3 to total A x 2-3 with supine to sit with HOB elevated. c/o increase pain with RLE movement needing cues and reassurance. pt only tolerated ~ 15-20 sec of sitting on EOB. pt requiring max A x 3 for sitting on EOB due to increase pain and needs RLE support due to increase pain whe RLE is dangling down on EOB. pt screaming due to pain and stated that she feels like she is going to faint out.assisted pt back to bed requiring total A x 3 for sit to supine. max A x 3 to total A x 2-3 for positioning in bed. call light and table placed within reach. educated pt and pt's daughter regarding PT plans and goals and limitations with progress. pt and daughter understood. PT eval completed with OT due to pt's complex medical condition requiring 2 person to complete mobility. Gait Assessment Comments Gait Comments unable at this time PT-Balance Assessment Sitting Balance and Reactions Static Sitting Balance Ability Poor Dynamic Sitting Balance Ability Poor M5 PT-IP Objective Assessments Start: 06/07/23 15:28 Freq: NEEDED Status: Active Protocol: Document 06/07/23 13:28 AB (Rec: 06/07/23 15:58 AB [id number]) Orientation Orientation/Cognition Level of Alertness Alert Orientation Name,Place,Situation Language Function Ability Hard of Hearing Safety Awareness Decreased Safety Awareness Memory Description No Deficits Noted Gross Range of Motion Lower Extremity ROM Impairments RLE with increase pain limiting movement and ROM Strength Lower Extremity Strength Assessment Right Impaired Comments Strength Comments pt with c/o increase RLE pain with movement limiting MMT M6 PT-IP Treatment Start: 06/07/23 15:28 Freq: NEEDED Status: Active Protocol: Document 06/07/23 13:28 AB (Rec: 06/07/23 15:58 AB [id number]) Physical Therapy Treatment Education Education Provided Weight Bearing Status,Safety Other Treatments Other Treatment Performed AAROM to PROM: R ankle and R knee M7 PT-IP Assessment and Plan Start: 06/07/23 15:28 Freq: NEEDED Status: Active Protocol: Document 06/07/23 13:28 AB (Rec: 06/07/23 15:58 AB [id number]) PT Summary Assessment and Plan Potential Rehabilitation Potential Poor Status of Condition at Evaluation Unstable Summary Impairments Pain,ROM,Strength,Balance, Coordination,Sensation,Tone, Cognition,Bed Mobility, Transfers,Gait,Activity Tolerance Assessment Summary pt is an 88 y/o F s/p GLF. pt sustained a R periprosthetic fracture and now being treated conservatively. per hospitalist note with discussion with ortho MD: recommend conservative management strategy with pain control, TTWB RLE if possible, in hopes of avoiding surgery as surgery would be extensive and complex and is medically risky as would likely result in a large blood loss. Patient would go to if fails conservative management. per hospitalist order: pt is touch down weight bearing on RLE. pt requiring max A x 3 to total A x 2-3 with mobility and unable to tolerate much activity with c/o increase RLE pain with movement. pt needing increase rest breaks in between tasks and only tolerated ~ 15-20 sec of sitting on EOB with max A x 3 for sitting balance and RLE support due to increase pain. pt needing 24/7 assist and will require SNF rehab at this time. will continue to assess progress. Goals Bed Mobility Goal Moderate Assistance Transfer Goal Moderate Assistance,Front Wheeled Walker Gait Goal Moderate Assistance,Front Wheel Walker Gait Distance 15 Other Goals improve bed mobility, transfers and ambulation 25 ft CGA using fWW Days to Meet Goals 10 Frequency of Treatment Frequency Of Treatment Once a Day Treatment Plan Physical Therapy Treatment Plan Bed Mobility Training,Transfer Training,Gait Training, Therapeutic Exercise,Balance Retraining,Discharge Planning, Hot or Cold Pack,Neuromuscular Re-ed,Coordination Retraining ,Manual Therapy Weight Bearing Status Weight Bearing Status Touch Down Weight Bearing Allowed Weight Bearing Amount (enter % RLE TTWB or #) (%) Recommendations To Nursing Amount of Assist Needed 3 or More Person Assist,Total Assistance,Mechanical Lift Discharge Recommendations PT Discharge Recommendations SNF Rehab Transportation Needs at Discharge Stretcher/Ambulance
[2023-06-07] MEDS: HYDROMORPHONE 1 MG INJ IV (14:17)
--- NOTE | 2023-06-07 15:32 | P.PN_ITS ---
Subjective Subjective Interval history: 88 F admitted with a periprosthetic femur fracture. She has lots of pain today with movement. Had chest discomfort after emesis, improved. EKG was unremarkable with no acute ischemia. Nurse noted possible coffee grounds, with h/h drop started on PPI empirically as a precaution. She did not do well with therapies today per report. Exam Vital Signs (past 8 hours): - 06/07/23 08:00 06/07/23 09:30 06/07/23 09:31 Temperature 98.6 F Pulse Rate 92 H 87 87 Respiratory Rate 18 Blood Pressure 118/60 118/60 118/60 Pulse Oximetry 97 Oxygen Delivery Method Oxygen Flow Rate 2 06/07/23 09:52 06/07/23 10:00 06/07/23 10:00 Temperature Pulse Rate 87 Respiratory Rate Blood Pressure Pulse Oximetry 96 Oxygen Delivery Method Nasal Cannula Nasal Cannula Oxygen Flow Rate 2 06/07/23 12:00 06/07/23 14:00 Temperature Pulse Rate 89 Respiratory Rate 25 H Blood Pressure 113/91 H Pulse Oximetry 94 96 Oxygen Delivery Method Nasal Cannula Oxygen Flow Rate 0 2 Oxygen Delivery Method Nasal Cannula Oxygen Flow Rate 2 Narrative Exam Narrative: General:? Patient is well developed and well nourished, in no distress at this time. Lungs:? CTA b/l no wheezing rhonchi or rales. Cardio:?RRR no m/r/g. Abdomen: S NT ND. Extremities: No edema or joint effusions. R leg short and externally rotated Objective Labs 06/07/23 04:05 06/07/23 04:05 Labs: Laboratory Results - last 24 hr 06/07/23 04:05 WBC 12.1 H RBC 3.57 L Hgb 10.3 L Hct 31.2 L MCV 87.4 MCH 28.9 MCHC 33.1 RDW 15.4 H Plt Count 269 Neut % (Auto) 59.3 Lymph % (Auto) 29.9 [place] % (Auto) 9.5 Eos % (Auto) 1.0 L Baso % (Auto) 0.3 Neut # (Auto) 7200 H Lymph # (Auto) 3600 [place]iwether # (Auto) 1200 H Eos # (Auto) 100 Baso # (Auto) 0 Sodium 135 L Potassium 4.8 Chloride 102 Carbon Dioxide 29 BUN 31 H Creatinine 1.10 H Estimated GFR 48 L BUN/Creatinine Ratio 28.2 H Glucose 170 H Calcium 8.6 Magnesium 1.7 Total Bilirubin 0.8 AST 52 H ALT 44 H Alkaline Phosphatase 42 Total Protein 6.7 Albumin 3.6 Globulin 3.1 Albumin/Globulin Ratio 1.2 PFSH Medical History Postop check Neck mass Muscle ache Joint swelling Joint pain Neck mass Headache Former smoker Facet arthropathy, lumbosacral Shoulder pain Anxiety Depression Sciatica Easy bruisability UTI (urinary tract infection) Acid reflux Nerve pain due to spinal stenosis History of revision of total replacement of right hip joint Elevated blood pressure reading without diagnosis of hypertension Trigeminal neuralgia Goiter Hip fracture, right Restless leg syndrome Chronic UTI History of anal fissures Surgical History Hx of shoulder surgery S/P epidural steroid injection 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 Father Diabetes mellitus Social History household members: none Smoking Status: Former smoker alcohol intake: current Assessment & Plan Assessment & Plan narrative: 1. R periprosthetic femur fracture - Per discussion with Dr. Sherwood, orthopedics, recommend conservative management strategy with pain control, TTWB RLE if possible, in hopes of avoiding surgery as surgery would be extensive and complex and is medically risky as would likely result in a large blood loss. Patient would go to if fails conservative management. - For now, pain control with tylenol, oxycodone, prn dilaudid for breakthrough. She states she is a bit more comfortable, but still in a lot of pain after initial IV medications. Suspect pain control will be difficult. - TTWB RLE with PT / OT, appreciate orthopedics management. - continue home pregabalin 200 mg BID and sertraline 2 chronic diastolic heart failure - continue home furosemide 20 mg PO BID, no signs of acute heart failure - continue home metoprolol, atorvastatin, losartan 3 HTN - continue home furosemide and metoprolol and losartan 4 HLD - continue home statin 5. nausea , vomiting, possible GI bleed - continue to trend h/h, suspect nausea/ vomiting due to pain medications. Started on IV PPI empirically for now, consider change to oral depending on progress. - EKG performed not consistent with ACS. Code: Full, surrogate is Scarlett Cohen I have utilized all available immediate resources to obtain, update, or review the patient's current medications. DVT: lovenox daily Dispo: will be complex disposition, will have to see how pain management goes and ambulation trials. May need SNF, may need transfer to higher level facility if failing conservative management.
--- NOTE | 2023-06-07 15:55 | PC.NURSE ---
Day shift: Pt c/o heartburn, protonix given as ordered. Pt had 50mL of dark emesis, crying out, spitting in emesis bag. 10/27 heartburn, tachycardic. Provider notified. New orders received. Medications administered as ordered (see MAR). Pt reports comfort, heartburn subsiding. VSS, care ongoing, will continue to monitor.
--- NOTE | 2023-06-07 16:18 | OT.IP.EVAL ---
Current Diagnoses Periprosthetic fracture around other internal prosthetic joint, initial encounter (06/06/23) Presence of unspecified artificial hip joint (06/06/23) Past Medical History (Last Reviewed 06/06/23 @ 18:21 by Abdullahi Arnold DO) Acid reflux Anxiety Chronic UTI Depression Easy bruisability Elevated blood pressure reading without diagnosis of hypertension Facet arthropathy, lumbosacral Former smoker Goiter Headache Hip fracture, right History of anal fissures History of revision of total replacement of right hip joint Joint pain Joint swelling Muscle ache Neck mass Neck mass Nerve pain due to spinal stenosis Postop check Restless leg syndrome Sciatica Shoulder pain Trigeminal neuralgia UTI (urinary tract infection) Surgical History (Last Reviewed 06/06/23 @ 18:21 by Abdullahi Arnold DO) H/O hemorrhoidectomy H/O: hysterectomy History of arthroplasty of right knee History of lumbar spinal fusion (07/28/17) History of total right hip arthroplasty (01/27/16) Hx of shoulder surgery S/P epidural steroid injection S/P left knee arthroscopy Occupational Therapy Inpatient Evaluation/Re-Eval M1 PT/OT-IP Prior Functional Status Start: 06/07/23 15:28 Freq: NEEDED Status: Active Protocol: Document 06/07/23 15:48 NONA (Rec: 06/07/23 16:17 NONA [id number]) Medical Review Prior Functional Status Medical History Reviewed Yes Communication pt able to make needs known Mobility and Gait pt was amb with SC outside of home, pt did not use AD in home Activities of Daily Living and IADL's pt was I with BADL/IADL including gardening Social History Household Members none Living Arrangements House Number of Floors (Floors) One Floor Home Environment Standard Height Toilet,Walk in Shower,Ramp Home Equipment Four Wheel Walker,Straight Cane,Raised Toilet Seat w/ Armrests,Shower Seat with Backrest,Hand Held Shower,Grab Bars Near Toilet,Grab Bars In Shower Employment Status Retired M2 OT-IP Current Condition Start: 06/07/23 12:58 Freq: Status: Active Protocol: Document 06/07/23 15:48 NONA (Rec: 06/07/23 16:17 NONA [id number]) Occupational Therapy Current Condition Current Condition Evaluation Date 06/07/23 Treatment Diagnosis s/p periprosthetic femur fracture Diagnosis Onset Date 06/06/23 Weight Bearing Status Weight Bearing Status Touch Down Weight Bearing M3 OT- IP Subjective and Pain Start: 06/07/23 12:58 Freq: Status: Active Protocol: Document 06/07/23 15:48 NONA (Rec: 06/07/23 16:17 VILMAFREDYDANIELLA [id number]) OT- Subjective Occupational Therapy Visit Type Type Initial Evaluation Visit Start Time 13:28 Visit Stop Time 14:37 Notes Pt reclined in bed with dtr present on entrance of OT/PT for co-eval. Occupational Therapy Visit Comments Patient Comments Prior to perform tasks pt would frequently state I just know it's going to be excruciating!! Patient/Caregiver Goals Per dtr, pt has been saying she wants to be able to get up and use the BSC. OT Pain Assessment Pain When Pain Assessed During Mobility Pain Present Pain Present Pain Reported Location Abdomen Description With Movement Right Leg Intensity 10 Scale Used Numeric (0 - 10) Description With Movement Pain Behaviors Calling Out,Facial Grimacing, Guarding,Holding Area,Moaning, Wincing Management Techniques Distraction,Re-positioning, Timing of Activity with Medications M4 OT- IP ADL's Start: 06/07/23 12:58 Freq: Status: Active Protocol: Document 06/07/23 15:48 [email or web address] (Rec: 06/07/23 16:17 VILMAFREDYDANIELLA [id number]) OT LUD-Rotn-Aohgeny General Evaluation Self-Feeding Ability Independent OT ADL-Grooming General Evaluation Grooming Ability Standby Assistance Areas Needing Assistance Retrieving/Set-up of Grooming Items Comments OT Grooming Comments Pt currently only able to tolerate BADLs performed in the bed. OT ADL-Oral Care General Eval Oral Care Ability Standby Assistance Areas of Assistance Retrieving/Set-Up of Items Comments Oral Care Comments Pt currently only able to tolerate BADLs performed in the bed. OT ADL-Dressing General Eval Upper Body Dressing Ability Moderate Assistance Lower Body Dressing Ability Total Assistance Comments OT Dressing Comments Pt currently only able to tolerate BADLs performed in the bed. Due to this and extreme pain with slight movement of R LE, dressing was not attempted during eval. Pt assist levels are based on OT clinical reasoning. OT ADL-Toileting General Evaluation Toileting Ability Total Assistance OT ADL-Bathing General Evaluation Bathing Ability Maximal Assistance Areas Needing Assistance Retrieving/Setting Up Items, Wash/Dry Back,Wash/Dry Perineal Area,Wash/Dry Lower Extremities Comments OT Bathing Comments pt declined to perform at time of eval. Pt assist levels are based on OT clinical reasoning. M5 OT- IP IADL's Start: 06/07/23 12:58 Freq: Status: Active Protocol: Document 06/07/23 15:48 NONA (Rec: 06/07/23 16:17 [facility] [id number]) OT-Instrumental Activities of Daily Living Home Safety Awareness Awareness of Need for Assistance at Home Decreased Awareness Ability to Problem Solve Emergency Unable to Problem Solve Situations Medication Management Medication Management No Deficits Identified Money Management Money Management No Deficits Identified Meal Preparation Meal Preparation Caregiver Provides Supervision Meal Preparation Comments Pt will need assist on d/c Skilled Nursing Case Manager Skilled Nursing Case Manager Caregiver Provides Assist Skilled Nursing Case Manager Comments Pt will need assist on d/c Driving Driving Caregiver Provides Assist Driving Comments Pt will need assist on d/c M6 OT- IP Functional Cognition Start: 06/07/23 12:58 Freq: Status: Active Protocol: Document 06/07/23 15:48 NONA (Rec: 06/07/23 16:17 [facility] [id number]) Cognitive Factors Limiting Selfcare Function Cognitive Ability Level of Alertness Alert Patient Orientation Name,Age,Birthday,Month,Date, Year,Day of Week,Place, Situation Attention Span Ability Capable of Focused Attention, Capable of Sustained Attention Ability to Follow Commands Able to Follow One Step Commands Memory Description No Deficits Noted Problem Solving Ability Needs Assist to Identify Solutions Executive Function Ability No Deficits Noted Abstract Thinking Ability No Deficits Noted OT- Vision and Hearing OT- Hearing Assessment OT- Hearing Assessment WFL,Use of Hearing Aids OT- Vision Assessment Visual Acuity WFL M7 OT- IP Mobility and Balance Start: 06/07/23 12:58 Freq: Status: Active Protocol: Document 06/07/23 15:48 NONA (Rec: 06/07/23 16:17 [facility] [id number][facility] OT- Bed Mobility Assessment Rolling Type of Rolling Roll to Left Level of Assistance Maximum Assistance,Total Assistance,2 Person Assistance Supine to Sit Supine to Sit Assist Maximum Assistance,Total Assistance,2 Person Assistance ,Head of Bed Elevated,Bedrails Sit to Supine Sit to Supine Assist Maximum Assistance,Total Assistance,2 Person Assistance ,Head of Bed Elevated,Bedrails OT-Transfer Assessment Comments Mobility Comments Pt requires slow pace with vcs along the way, max encouragement, frequent rbs, and vcs to keep breathing during functional mobility. Pt requires max-total A x 3 to perform safely. Pt tolerated sitting EOB for approximately 30 seconds. OT- Gait Assessment Comments Gait Ability Comments pt not safe enough to assess gait at this time OT- Balance Assessment Sitting Balance and Reactions Static Sitting Balance Ability Poor Dynamic Sitting Balance Ability Poor Comments Other Balance Tests/Deviations/Treatment While EOB, pt leaning to R and : posterior. Pt requires CGA- min A to maintain upright position. M8 OT- IP Objective Assessments Start: 06/07/23 12:58 Freq: Status: Active Protocol: Document 06/07/23 15:48 VILMAMTDANIELLA (Rec: 06/07/23 16:17 [facility] [id number]) OT Gross Range of Motion Upper Extremity Range of Motion Assessment Within Functional Limits OT Strength Upper Extremity Strength Assessment Within Functional Limits Shoulder B 3+ flexion, B 4- extension Elbow B 4- Hand Picking Crew Supervisor Strength Hand Dominance Right OT- Coordination Assessment Upper Extremity Finger to Nose Test Within Functional Limits Finger Tapping Test Within Functional Limits OT Sensation Assessment Comments Summary Comments sensation intact for B UEs M9 OT- IP Assessment and Plan Start: 06/07/23 12:58 Freq: Status: Active Protocol: Document 06/07/23 15:48 VILMAMTDANIELLA (Rec: 06/07/23 16:17 [facility] [id number]) OT Summary Assessment and Plan Potential Rehabilitation Potential Poor Analytic Complexity at Evaluation High Summary OT Impairments Pain,Strength,Balance, Functional Mobility,Grooming, Dressing,Toileting,Bathing, Toilet Transfers,Shower Transfers,Activity Tolerance Progress Towards Goals Slow Progress due to Pain,Slow Progress due to Medical Issues,Slow Progress due to Activity Tolerance Assessment Summary Pt is an 88 yo F who fell asleep on the couch. When she woke up shw stood up and fell landing on her R side where she had a previous femur repair. X-ray shows that the hardware is in place with the fracture through the proximal femoral shaft at the level of the stem. At present, the plan is to treat conservatively with protected weight bearing. Pt has significant anxiety with all tasks and movements performed during eval, require significant explanations and reassurances at each step. Pt requires vcs to breathe and to relax muscles, demonstrating significant guarding especially of R LE. Pt demonstrates significantly impaired activity tolerance, decreased I with BADLs, muscle weakness, and impaired functional t/fs. Skilled OT services are appropriate to address pt deficits. Pt currently requires max-total A of 3 with functional t/fs. I would highly recommend continued PT/OT co-tx for maximum pt safety and pt functional gains. Educated pt and dtr on the goals from an OT/PT perspective and the challenges that are before them. Goals Grooming Goal Standby Assistance Dressing Goal Moderate Assistance Toileting Goal Moderate Assistance Bathing Goal Minimal Assistance Toilet Transfer Goal Moderate Assistance Shower Transfer Goal Minimal Assistance Days to Meet Goals 20 Frequency of Treatment Frequency Of Treatment Once a Day Treatment Plan OT Treatment Plan ADL Training,Functional Mobility,Therapeutic Exercises ,Patient/Family Education, Discharge Planning Other Treatment Recommendations and Next recommend OT/PT co-tx, UE Treatment Focus strengthening HEP Discharge Recommendations OT Discharge Recommendations SNF Rehab Transportation Needs at Discharge Wheelchair/Cabulance,Stretcher /Ambulance
[2023-06-07] MEDS: MAGNESIUM CHLORIDE 64 MG TABLET 128 MG PO (17:00)
[2023-06-07] MEDS: ATORVASTATIN 20 MG TABLET 40 MG PO (20:53)
[2023-06-07] MEDS: SENNOSIDES 8.6 MG TABLET 17.2 MG PO (20:55)
[2023-06-08] VITALS (30 sets, daily range): BP systolic 81–150; BP diastolic 45–65; PULSE 64–85; RESP 12–22; TEMP 36.3–37.9; O2SAT 83–100
[2023-06-08 05:38] LABS: Add Manual Diff / Slide Review NO; Basophils Absolute Auto 0 /uL (0-100); Basophils Percent Auto 0.3 % (0-2); Eosinophils Absolute Auto 100 /uL (0-450); Hematocrit 25.3 % (36-46); Hemoglobin 8.5 g/dL (12.0-16.0); Lymphocytes Absolute Auto 2900 /uL (1100-4500); Lymphocytes Percent Auto 28.7 % (25-40); Mean Corpuscular HGB Conc 33.8 % (30-36); Mean Corpuscular Hemoglobin 29.5 PG (26-34); Mean Corpuscular Volume 87.2 fL (80-100); Monocytes Absolute Auto 1000 /uL (0-900); Monocytes Percent Auto 10.1 % (3-14); Neutrophils Absolute Auto 6000 /uL (1500-7000); Neutrophils Percent Auto 59.9 % (50-75); Platelet Count 179 X10^3/uL (150-400); White Blood Cell Count 10.1 X10^3/uL (4.5-11.0)
[2023-06-08 05:58] LABS: Alanine Aminotransferase 30 IU/L (<35); Albumin 3.1 g/dL (3.5-5.0); Alkaline Phosphatase 38 U/L (38-126); Aspartate Aminotransferase 39 IU/L (14-36); BUN Creatinine Ratio 44.3 (6-22); Bilirubin Total 0.7 mg/dL (0.2-1.3); Blood Urea Nitrogen 39 mg/dL (7-17); Calcium 8.4 mg/dL (8.4-10.2); Carbon Dioxide 29 mmol/L (22-32); Chloride 104 mmol/L (98-107); Estimated Glomerular Filt Rate > 60 mL/min (>60); Glucose 155 mg/dL (80-110); HEMOLYSIS < 15 (0-50); Potassium 4.4 mmol/L (3.4-5.1); Sodium 133 mmol/L (137-145); Total Protein 6.1 g/dL (6.3-8.2)
--- NOTE | 2023-06-08 06:04 | PC.NURSE ---
Patient resting in bed all shift. Patient able to help w/ transfer in bed. Pain controlled well w/rest and po meds. Patient has been A&O, calm and cooperative
--- NOTE | 2023-06-08 06:05 | PC.NURSE ---
Patient resting in bed all shift. Able to reposition self in bed. Pain has been controlled well w/ po pain meds. Patient has been A&O, calm and cooperative.
[2023-06-08] MEDS: METOPROLOL ER 25 MG TABLET PO (08:30)
[2023-06-08] MEDS: PREGABALIN 50 MG CAPSULE 200 MG PO ×2 (08:30→20:44)
[2023-06-08] MEDS: FUROSEMIDE 20 MG TABLET PO (08:30)
[2023-06-08] MEDS: ASPIRIN EC 81 MG TABLET PO (08:30)
[2023-06-08] MEDS: DOCUSATE 100 MG CAPSULE PO (08:30)
[2023-06-08] MEDS: GABAPENTIN 600 MG TABLET PO ×2 (08:31→20:44)
[2023-06-08] MEDS: LOSARTAN 25 MG TABLET PO (08:31)
[2023-06-08] MEDS: ENOXAPARIN 40 MG/0.4 ML SYRINGE SUBCUT (08:31)
[2023-06-08] MEDS: MULTIVITAMIN 1 TABLET 1 TAB PO (08:31)
[2023-06-08] MEDS: ACETAMINOPHEN 325 MG TABLET 650 MG PO ×2 (08:31→20:46)
[2023-06-08] MEDS: SERTRALINE 50 MG TABLET 25 MG PO (08:31)
[2023-06-08] MEDS: PANTOPRAZOLE 40 MG VIAL IV ×2 (08:32→20:45)
[2023-06-08] MEDS: OXYCODONE IR 5 MG TABLET PO (10:04)
--- NOTE | 2023-06-08 10:33 | CM.DPC ---
DCP Cont. Reviewed EMR and team rounds for pt's medical status and updates. Pt was unable to tolerate working with therapies, is a 3-person assist to attempt any mobility. Per Hospitalist, he will consult with Ortho today again about needing to transfer pt out to [facility] for complicated surgery. VOIP TECHNICIAN will continue to monitor until final d/c recommendations are clarified.
--- NOTE | 2023-06-08 11:00 | PT.IPTN ---
Current Diagnoses Periprosthetic fracture around other internal prosthetic joint, initial encounter (06/06/23) Presence of unspecified artificial hip joint (06/06/23) Physical Therapy Treatment Note M2 PT-IP Current Condition Start: 06/07/23 15:28 Freq: NEEDED Status: Active Protocol: Document 06/07/23 13:28 AB (Rec: 06/07/23 15:58 AB [id number]) Physical Therapy Current Condition Current Condition Evaluation Date 06/07/23 Treatment Diagnosis GLF; R periprosthetic fx; difficulty in walking Onset Date 06/06/23 M3 PT-IP Subjective Start: 06/07/23 15:28 Freq: NEEDED Status: Active Protocol: Document 06/08/23 11:43 TS (Rec: 06/08/23 12:09 TS [id number]) Subjective Physical Therapy Visit Type Type Treatment Note Visit Start Time 11:00 Visit Stop Time 11:39 Notes Daughter present Number of CHILD PSYCHOLOGIST Visits 1 Physical Therapy Visit Comments Patient Comments Pt found resting in bed, OT and PT in room, pt would like to get up to try to use commode. Pt is agreeable to PT . Therapy Pain Assessment Pain When Pain Assessed At Rest Pain Present Pain Present Pain Reported M4 PT-IP Mobility and Gait Start: 06/07/23 15:28 Freq: NEEDED Status: Active Protocol: Document 06/08/23 11:43 TS (Rec: 06/08/23 12:09 TS [id number]) PT-Bed Mobility Assessment Supine to Sit Supine to Sit Moderate Assistance,2 Person Assistance,Head of Bed Elevated,Bedrails Scooting Scooting to Edge of Bed Moderate Assistance PT-Transfer Assessment Sit to and From Stand Sit to and from Stand Maximum Assistance,2 Person Assistance,Use of Upper Extremities Equipment Transfer Assistive Device Gait Belt,Front Wheeled Walker Orthotic/Prosthetic Devices or Brace: No Transfers Transfer Destination Chair,Bedside Commode Transfer Technique Stand Pivot Transfer Ability Level of Assist Moderate Assistance,2 Person Assistance,Use of Upper Extremities Comments Mobility Comments Supine to sit ModA x2 for uprighting trunk and RLE assist, bed on max inflate and HOB elevated. She scooted to EOB ModA with BUE support. STS from commode MaxA x3 PA with FWW, PT assisted with elevation of RLE for TTWB, pt required max cues for STS technique. Stand pivot to chair x3PA MaxA with FWW, pt maintained NWB on RLE with PT assist, halway through transfer pt required to sit, commode repositioned under pt. Pt attempted bowel BM. STS from commode MaxA x3PA, commode replaced with chair while pt standing. Pt syncoped briefly due to low BP, BP in chair 84/48 on 2nd attempt, 1st attempt did not register. Pt was left in chair, RN and MD notified of snycope episode . Gait Assessment Comments Gait Comments Stand pivot to commode. PT-Balance Assessment Sitting Balance and Reactions Static Sitting Balance Ability Fair Dynamic Sitting Balance Ability Fair Standing Balance and Reactions Static Standing Balance Ability Poor Dynamic Standing Balance Ability Poor M5 PT-IP Objective Assessments Start: 06/07/23 15:28 Freq: NEEDED Status: Active Protocol: Document 06/07/23 13:28 AB (Rec: 06/07/23 15:58 AB [id number]) Orientation Orientation/Cognition Level of Alertness Alert Orientation Name,Place,Situation Language Function Ability Hard of Hearing Safety Awareness Decreased Safety Awareness Memory Description No Deficits Noted Gross Range of Motion Lower Extremity ROM Impairments RLE with increase pain limiting movement and ROM Strength Lower Extremity Strength Assessment Right Impaired Comments Strength Comments pt with c/o increase RLE pain with movement limiting MMT M6 PT-IP Treatment Start: 06/07/23 15:28 Freq: NEEDED Status: Active Protocol: Document 06/08/23 11:43 TS (Rec: 06/08/23 12:09 [id number]) Physical Therapy Treatment Education Education Provided Weight Bearing Status,Safety Other Treatments Other Treatment Performed AAROM to PROM: R ankle and R knee M7 PT-IP Assessment and Plan Start: 06/07/23 15:28 Freq: NEEDED Status: Active Protocol: Document 06/08/23 11:43 TS (Rec: 06/08/23 12:09 [id number]) PT Summary Assessment and Plan Potential Rehabilitation Potential Poor Summary Impairments Pain,ROM,Strength,Balance, Coordination,Sensation,Tone, Cognition,Bed Mobility, Transfers,Gait,Activity Tolerance Progress Towards Goals Slow Progress due to Pain,Slow Progress due to Medical Issues,Slow Progress due to Activity Tolerance Assessment Summary Krystyna made some progress with her mobility this session but continues to be limited. She required ModA x2 for supine to sit with HOB elevated and max cues. She progressed to standing with MaxA x3 with FWW . She requires Max[facility] x3 with [facility] required therapist supporting RLE to maintain TTWB/NWB on RLE for transfer. She had x1 syncope episode standing from commode, pt recovered supine into chair, BP 84/48, RN and MD notified. PT continues to recommend SNF rehab at this time. Will continue to assess progress. Goals Bed Mobility Goal Moderate Assistance Transfer Goal Moderate Assistance,Front Wheeled Walker Gait Goal Moderate Assistance,Front Wheel Walker Gait Distance 15 Other Goals improve bed mobility, transfers and ambulation 25 ft CGA using fWW Days to Meet Goals 10 Frequency of Treatment Frequency Of Treatment Once a Day Treatment Plan Physical Therapy Treatment Plan Bed Mobility Training,Transfer Training,Gait Training, Therapeutic Exercise,Balance Retraining,Discharge Planning, Hot or Cold Pack,Neuromuscular Re-ed,Coordination Retraining ,Manual Therapy Other Recommendations and Next Treatment ambulation Focus Weight Bearing Status Weight Bearing Status Touch Down Weight Bearing Allowed Weight Bearing Amount (enter % RLE TTWB or #) (%) Recommendations To Nursing Amount of Assist Needed 3 or More Person Assist, Mechanical Lift Discharge Recommendations PT Discharge Recommendations SNF Rehab Transportation Needs at Discharge Stretcher/Ambulance
--- NOTE | 2023-06-08 11:20 | PM.PN.1 ---
Subjective Subjective Interval history: Extensive surgical history taken from our office notes as well as Dr Sherwood's H&P: -1993: Right total knee arthroplasty -2006: Open reduction internal fixation of right periprosthetic femur fracture above total knee -2016: Right hip uncemented hemiarthroplasty for femoral neck fracture at [facility] -2017: Revision of right hip femoral component with Open reduction internal fixation of right inter prosthetic femoral stress fracture; this was performed by Dr Gabriella Tucker. -2018: L3-4 laminectomy and L4-[address] Mika Barrett This morning patient states she is having severe hip pain. She has been very limited working with physical therapy secondary to pain. Exam Vital Signs (past 8 hours): - 06/08/23 04:00 06/08/23 04:00 06/08/23 08:00 Temperature 100.3 F H Pulse Rate 77 Respiratory Rate 12 Blood Pressure 118/56 L Pulse Oximetry 99 98 98 Oxygen Delivery Method Nasal Cannula Nasal Cannula Oxygen Flow Rate 0 2 2 06/08/23 08:00 06/08/23 08:30 06/08/23 08:31 Temperature 98.3 F Pulse Rate 76 77 77 Respiratory Rate 16 Blood Pressure 117/59 L 118/56 L 118/56 L Pulse Oximetry 94 Oxygen Delivery Method Oxygen Flow Rate Oxygen Delivery Method Nasal Cannula Oxygen Flow Rate 2 Narrative Exam Narrative: 88-year-old female resting comfortably in bed in no apparent distress. Patient is able to move all toes. Sensation grossly intact to light touch. Her foot is warm and dry. Const General: cooperative and comfortable Orientation: alert Resp Effort & Inspection: normal respiratory effort and able to speak in complete sentences Objective Labs 06/08/23 04:55 06/08/23 04:55 Labs: Laboratory Results - last 24 hr 06/08/23 04:55 WBC 10.1 RBC 2.90 L Hgb 8.5 L Hct 25.3 L MCV 87.2 MCH 29.5 MCHC 33.8 RDW 15.0 H Plt Count 179 Neut % (Auto) 59.9 Lymph % (Auto) 28.7 Heard % (Auto) 10.1 Eos % (Auto) 1.0 L Baso % (Auto) 0.3 Neut # (Auto) 6000 Lymph # (Auto) 2900 Heard # (Auto) 1000 H Eos # (Auto) 100 Baso # (Auto) 0 Sodium 133 L Potassium 4.4 Chloride 104 Carbon Dioxide 29 BUN 39 H Creatinine 0.88 Estimated GFR > 60 BUN/Creatinine Ratio 44.3 H Glucose 155 H Calcium 8.4 Magnesium 2.0 Total Bilirubin 0.7 AST 39 H ALT 30 Alkaline Phosphatase 38 Total Protein 6.1 L Albumin 3.1 L Globulin 3.0 Albumin/Globulin Ratio 1.0 PFSH Medical History Postop check Neck mass Muscle ache Joint swelling Joint pain Neck mass Headache Former smoker Facet arthropathy, lumbosacral Shoulder pain Anxiety Depression Sciatica Easy bruisability UTI (urinary tract infection) Acid reflux Nerve pain due to spinal stenosis History of revision of total replacement of right hip joint Elevated blood pressure reading without diagnosis of hypertension Trigeminal neuralgia Goiter Hip fracture, right Restless leg syndrome Chronic UTI History of anal fissures Surgical History Hx of shoulder surgery S/P epidural steroid injection 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 Father Diabetes mellitus Social History household members: none Smoking Status: Former smoker alcohol intake: current Assessment & Plan Assessment & Plan narrative: Periprosthetic fracture, right The patient has a new periprosthetic hip fracture. Dr Sherwood spoke at length to the orthopedist at [facility] yesterday, who recommended 6-8 weeks of protected weight-bearing. The patient has been admitted here and we will plan to have her mobilize with a walker while maintaining toe-touch weight-bearing. The current plan is to repeat radiographs once the pt has ambulated a few times with PT (Dr Sherwood will order). Should she have a failure of nonoperative treatment we would re-initiate the transfer process [facility] for consideration revision plating likely with maintenance of her hemiarthroplasty and total knee arthroplasty.
--- NOTE | 2023-06-08 11:39 | OT.IP.TRT ---
Current Diagnoses Periprosthetic fracture around other internal prosthetic joint, initial encounter (06/06/23) Presence of unspecified artificial hip joint (06/06/23) Occupational Therapy Treatment Note M2 OT-IP Current Condition Start: 06/07/23 12:58 Freq: Status: Active Protocol: Document 06/07/23 15:48 NONA (Rec: 06/07/23 16:17 NONA [id number]) Occupational Therapy Current Condition Current Condition Evaluation Date 06/07/23 Treatment Diagnosis s/p periprosthetic femur fracture Diagnosis Onset Date 06/06/23 Weight Bearing Status Weight Bearing Status Touch Down Weight Bearing M3 OT- IP Subjective and Pain Start: 06/07/23 12:58 Freq: Status: Active Protocol: Document 06/08/23 11:42 CGR (Rec: 06/08/23 11:58 CGR [id number]) OT- Subjective Occupational Therapy Visit Type Type Progress Note Visit Start Time 10:44 Visit Stop Time 11:39 OT Pain Assessment Pain When Pain Assessed At Rest Pain Present Pain Present Pain Reported Location Right Hip Scale Used did not rate Management Techniques Distraction,Modification of Treatment,Re-positioning M4 OT- IP ADL's Start: 06/07/23 12:58 Freq: Status: Active Protocol: Document 06/08/23 11:42 CGR (Rec: 06/08/23 11:58 CGR [id number]) OT [id number] Comments OT Self-Feeding Comments not meal time OT ADL-Grooming General Evaluation Grooming Ability Standby Assistance,Moderate Assistance Areas Needing Assistance Retrieving/Set-up of Grooming Items,Combing/Brushing Hair Comments OT Grooming Comments Pt was able to brush hair with SBA and MOD A for washing hair with shower cap. OT ADL-Oral Care Comments Oral Care Comments performed with daughter prior to OT entering. OT ADL-Dressing General Eval Lower Body Dressing Ability Total Assistance Areas Needing Assistance Socks Comments OT Dressing Comments supine in bed OT ADL-Toileting General Evaluation Areas Needing Assistance Manage Clothing Comments OT Toileting Comments attempted BM seated on BSC. Pt needed total a for managing clothing. OT ADL-Bathing Comments OT Bathing Comments not performed M5 OT- IP IADL's Start: 06/07/23 12:58 Freq: Status: Active Protocol: Document 06/07/23 15:48 NONA (Rec: 06/07/23 16:17 [facility] [id number][facility] OT-Instrumental Activities of Daily Living Home Safety Awareness Awareness of Need for Assistance at Home Decreased Awareness Ability to Problem Solve Emergency Unable to Problem Solve Situations Medication Management Medication Management No Deficits Identified Money Management Money Management No Deficits Identified Meal Preparation Meal Preparation Caregiver Provides Supervision Meal Preparation Comments Pt will need assist on d/c Rear Load Truck Driver Rear Load Truck Driver Caregiver Provides Assist Rear Load Truck Driver Comments Pt will need assist on d/c Driving Driving Caregiver Provides Assist Driving Comments Pt will need assist on d/c M6 OT- IP Functional Cognition Start: 06/07/23 12:58 Freq: Status: Active Protocol: Document 06/07/23 15:48 [email or web address] (Rec: 06/07/23 16:17 [facility] [id number]) Cognitive Factors Limiting Selfcare Function Cognitive Ability Level of Alertness Alert Patient Orientation Name,Age,Birthday,Month,Date, Year,Day of Week,Place, Situation Attention Span Ability Capable of Focused Attention, Capable of Sustained Attention Ability to Follow Commands Able to Follow One Step Commands Memory Description No Deficits Noted Problem Solving Ability Needs Assist to Identify Solutions Executive Function Ability No Deficits Noted Abstract Thinking Ability No Deficits Noted OT- Vision and Hearing OT- Hearing Assessment OT- Hearing Assessment WFL,Use of Hearing Aids OT- Vision Assessment Visual Acuity WFL M7 OT- IP Mobility and Balance Start: 06/07/23 12:58 Freq: Status: Active Protocol: Document 06/08/23 11:42 CGR (Rec: 06/08/23 11:58 CGR [id number]) OT- Bed Mobility Assessment Supine to Sit Supine to Sit Assist Moderate Assistance,2 Person Assistance,Head of Bed Elevated,Bedrails Scooting Scooting to Edge of Bed Moderate Assistance,2 Person Assistance,Head of Bed Elevated,Bedrails OT-Transfer Assessment Sit to and From Stand Sit to and from Stand Maximum Assistance,Total Assistance,2 Person Assistance Transfers Transfer Ability Total Assistance,2 Person Assistance Technique Transfer Destination Bed,Bedside Commode,Chair Transfer Technique movement of furniture and stand pivot Devices Transfer Assistive Devices Gait Belt,Front Wheeled Walker Comments Mobility Comments PT needed 3 person assist for transfer but with significant improvmenet for bed mobility on this date. Pt stood from high bed with max to total a and needed total a for transfer to [facility]. It was then decided that furniture would be moved for transfer from BSC to chair. Pt needed total a for sit to stand from [facility] then furniture was moved and pt became unresponsive but with eyes open. Pt sat in chair with total a and head reclined and feet brought up. First BP was unconclusive and second BP 84/48. Pt at that time was responsive again and talking. Nursing and MD notified of drop in BP and syncope. OT- Gait Assessment Comments Gait Ability Comments did not occur. OT- Balance Assessment Sitting Balance and Reactions Static Sitting Balance Ability Good Dynamic Sitting Balance Ability Good M8 OT- IP Objective Assessments Start: 06/07/23 12:58 Freq: Status: Active Protocol: Document 06/07/23 15:48 NONA (Rec: 06/07/23 16:17 NONA [id number]) OT Gross Range of Motion Upper Extremity Range of Motion Assessment Within Functional Limits OT Strength Upper Extremity Strength Assessment Within Functional Limits Shoulder B 3+ flexion, B 4- extension Elbow B 4- Hand Safety Engineer Strength Hand Dominance Right OT- Coordination Assessment Upper Extremity Finger to Nose Test Within Functional Limits Finger Tapping Test Within Functional Limits OT Sensation Assessment Comments Summary Comments sensation intact for B UEs M9 OT- IP Assessment and Plan Start: 06/07/23 12:58 Freq: Status: Active Protocol: Document 06/08/23 11:42 CGR (Rec: 06/08/23 11:58 CGR [id number]) OT Summary Assessment and Plan Potential Rehabilitation Potential Fair Analytic Complexity at Evaluation High Summary OT Impairments Pain,Strength,Balance, Functional Mobility,Grooming, Dressing,Toileting,Bathing, Toilet Transfers,Shower Transfers,Activity Tolerance Progress Towards Goals Slow Progress due to Pain,Slow Progress due to Medical Issues,Slow Progress due to Activity Tolerance Assessment Summary Pt is an 88 yo F who fell asleep on the couch. When she woke up shw stood up and fell landing on her R side where she had a previous femur repair. X-ray shows that the hardware is in place with the fracture through the proximal femoral shaft at the level of the stem. At present, the plan is to treat conservatively with protected weight bearing. Pt requesting to get to [facility] on this date and participated in limited ADLs sitting up in bed prior to transfer. Pt needed 3 person assist to transfer safely to [facility] and then had a syncopol episode with transfer to chair. Nursing and MD notified of session. Goals Grooming Goal Standby Assistance Dressing Goal Moderate Assistance Toileting Goal Moderate Assistance Bathing Goal Minimal Assistance Toilet Transfer Goal Moderate Assistance Shower Transfer Goal Minimal Assistance Days to Meet Goals 20 Frequency of Treatment Frequency Of Treatment Once a Day Treatment Plan OT Treatment Plan ADL Training,Functional Mobility,Therapeutic Exercises ,Patient/Family Education, Discharge Planning Other Treatment Recommendations and Next recommend OT/PT co-tx, UE Treatment Focus strengthening HEP Discharge Recommendations OT Discharge Recommendations SNF Rehab Transportation Needs at Discharge Stretcher/Ambulance
[2023-06-08] MEDS: SODIUM CHLORIDE 0.9% 1,000 ML 100 ML IV (12:12)
[2023-06-08] MEDS: SODIUM CHLORIDE 0.9% 500 ML IV (12:13)
[2023-06-08] MEDS: polyethylene glycoL 3350 17 GM POWD.PACK PO (15:00)
--- NOTE | 2023-06-08 18:35 | P.PN_ITS ---
Subjective Subjective Interval history: Patient had orthostatic hypotension today during PT with SBP drop into 80's. Holding HTN meds and gave 1/2L bolus with improvement. Patient notes constipation and asking for increased laxatives. Still max 3 assist with PT and having pain in R hip. She is hoping she can have surgery. Exam Vital Signs (past 8 hours): - 06/07/23 08:00 06/07/23 09:30 06/07/23 09:31 Temperature 98.6 F Pulse Rate 92 H 87 87 Respiratory Rate 18 Blood Pressure 118/60 118/60 118/60 Pulse Oximetry 97 Oxygen Delivery Method Oxygen Flow Rate 2 06/07/23 09:52 06/07/23 10:00 06/07/23 10:00 Temperature Pulse Rate 87 Respiratory Rate Blood Pressure Pulse Oximetry 96 Oxygen Delivery Method Nasal Cannula Nasal Cannula Oxygen Flow Rate 2 06/07/23 12:00 06/07/23 14:00 Temperature Pulse Rate 89 Respiratory Rate 25 H Blood Pressure 113/91 H Pulse Oximetry 94 96 Oxygen Delivery Method Nasal Cannula Oxygen Flow Rate 0 2 Oxygen Delivery Method Nasal Cannula Oxygen Flow Rate 2 Narrative Exam Narrative: General:? Patient is well developed and well nourished, in no distress at this time. Lungs:? CTA b/l no wheezing rhonchi or rales. Cardio:?RRR no m/r/g. Abdomen: S NT ND. Extremities: No edema or joint effusions. R leg short and externally rotated Objective Labs 06/08/23 04:55 06/08/23 04:55 Labs: Laboratory Results - last 24 hr 06/08/23 04:55 WBC 10.1 RBC 2.90 L Hgb 8.5 L Hct 25.3 L MCV 87.2 MCH 29.5 MCHC 33.8 RDW 15.0 H Plt Count 179 Neut % (Auto) 59.9 Lymph % (Auto) 28.7 Winkler % (Auto) 10.1 Eos % (Auto) 1.0 L Baso % (Auto) 0.3 Neut # (Auto) 6000 Lymph # (Auto) 2900 Winkler # (Auto) 1000 H Eos # (Auto) 100 Baso # (Auto) 0 Sodium 133 L Potassium 4.4 Chloride 104 Carbon Dioxide 29 BUN 39 H Creatinine 0.88 Estimated GFR > 60 BUN/Creatinine Ratio 44.3 H Glucose 155 H Calcium 8.4 Magnesium 2.0 Total Bilirubin 0.7 AST 39 H ALT 30 Alkaline Phosphatase 38 Total Protein 6.1 L Albumin 3.1 L Globulin 3.0 Albumin/Globulin Ratio 1.0 PFSH Medical History Postop check Neck mass Muscle ache Joint swelling Joint pain Neck mass Headache Former smoker Facet arthropathy, lumbosacral Shoulder pain Anxiety Depression Sciatica Easy bruisability UTI (urinary tract infection) Acid reflux Nerve pain due to spinal stenosis History of revision of total replacement of right hip joint Elevated blood pressure reading without diagnosis of hypertension Trigeminal neuralgia Goiter Hip fracture, right Restless leg syndrome Chronic UTI History of anal fissures Surgical History Hx of shoulder surgery S/P epidural steroid injection 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 Father Diabetes mellitus Social History household members: none Smoking Status: Former smoker alcohol intake: current Assessment & Plan Assessment & Plan narrative: 1. R periprosthetic femur fracture - Per discussion with Dr. Sherwood, orthopedics, recommend conservative management strategy with pain control, TTWB RLE if possible, in hopes of avoiding surgery as surgery would be extensive and complex and is medically risky as would likely result in a large blood loss. Patient would go to if fails conservative management. - For now, pain control with tylenol, oxycodone, prn dilaudid for breakthrough. She states she is a bit more comfortable, but still in a lot of pain after initial IV medications. Suspect pain control will be difficult. - TTWB RLE with PT / OT, appreciate orthopedics management. - continue home pregabalin 200 mg BID and sertraline - started daily laxatives for constipation 2 chronic diastolic heart failure - continue home furosemide 20 mg PO BID, no signs of acute heart failure - continue home metoprolol, atorvastatin, losartan 3 HTN - continue home furosemide and metoprolol and losartan 4 HLD - continue home statin 5. nausea, vomiting, possible hematemesis - continue to trend h/h, suspect nausea/ vomiting due to pain medications. Started on IV PPI empirically. Held aspirin and lovenox. - EKG performed not consistent with ACS. - Hgb now dropping 12.1>8.5 in 2 days - Dr. Lora malone surg consulted for EGD on 06/08, NPO at midnight Code: Full, surrogate is Scarlett Cohen I have utilized all available immediate resources to obtain, update, or review the patient's current medications. DVT: lovenox daily Dispo: will be complex disposition, will have to see how pain management goes and ambulation trials. May need SNF, may need transfer to higher level facility if failing conservative management.
[2023-06-08] MEDS: ATORVASTATIN 20 MG TABLET 40 MG PO (20:45)
[2023-06-08] MEDS: SENNOSIDES 8.6 MG TABLET PO (20:45)
[2023-06-09] VITALS (27 sets, daily range): BP systolic 105–182; BP diastolic 46–77; PULSE 69–90; RESP 13–25; TEMP 36.4–37.7; O2SAT 90–98
[2023-06-09] MEDS: HYDROMORPHONE 1 MG INJ 0.5 MG IV ×2 (04:20→08:39)
[2023-06-09 04:36] LABS: Add Manual Diff / Slide Review NO; Basophils Absolute Auto 0 /uL (0-100); Basophils Percent Auto 0.3 % (0-2); Eosinophils Absolute Auto 200 /uL (0-450); Eosinophils Percent Auto 2.3 % (2-4); Hematocrit 23.4 % (36-46); Hemoglobin 7.9 g/dL (12.0-16.0); Lymphocytes Absolute Auto 2100 /uL (1100-4500); Lymphocytes Percent Auto 27.5 % (25-40); Mean Corpuscular HGB Conc 33.9 % (30-36); Mean Corpuscular Hemoglobin 29.7 PG (26-34); Mean Corpuscular Volume 87.7 fL (80-100); Monocytes Absolute Auto 700 /uL (0-900); Monocytes Percent Auto 9.8 % (3-14); Neutrophils Absolute Auto 4500 /uL (1500-7000); Neutrophils Percent Auto 60.1 % (50-75); Platelet Count 144 X10^3/uL (150-400); Red Blood Cell Count 2.67 X10^6/uL (4.0-5.2); Red Cell Distribution Width 15.5 % (11.6-14.8); White Blood Cell Count 7.5 X10^3/uL (4.5-11.0)
[2023-06-09 04:47] LABS: BUN Creatinine Ratio 31.2 (6-22); Blood Urea Nitrogen 24 mg/dL (7-17); Calcium 8.4 mg/dL (8.4-10.2); Carbon Dioxide 28 mmol/L (22-32); Chloride 107 mmol/L (98-107); Estimated Glomerular Filt Rate > 60 mL/min (>60); Glucose 134 mg/dL (80-110); HEMOLYSIS < 15 (0-50); Potassium 4.5 mmol/L (3.4-5.1); Sodium 136 mmol/L (137-145)
--- NOTE | 2023-06-09 07:47 | DI.RAD.S_ITS ---
PROCEDURE: XR HIP W PEL IF DONE RT 2V INDICATIONS: Re-Access Fracture TECHNIQUE: AP pelvis with lateral view(s) of the right hip(s). COMPARISON: [facility], CR, XR HIP W PEL IF DONE RT 2V, 06/06/2023, 9:01. FINDINGS: Bones: Postsurgical changes of right total hip arthroplasty appears stable. Redemonstration of periprosthetic fracture of the proximal right humerus. No evidence for bridging callus formation or significant periosteal reaction. Partially imaged fixation hardware of the mid/distal femoral shaft without evidence for hardware complication. Partially imaged right posterior spinal fusion hardware at L4-5 with interbody spacer. No suspicious bony lesions. Soft tissues: The visualized bowel gas pattern is normal. No suspicious soft tissue calcifications. IMPRESSION: Status post right total hip arthroplasty with no significant change in appearance of periprosthetic fracture of the proximal right femur. No significant increase in periosteal reaction or bridging callus formation. No hardware complications visualized. Dictated by: Rodney Malin M.D. on 06/09/2023 at 10:16 Approved by: Rodney Malin M.D. on 06/09/2023 at 10:18
[2023-06-09] MEDS: SERTRALINE 50 MG TABLET 25 MG PO (10:06)
[2023-06-09] MEDS: PANTOPRAZOLE 40 MG VIAL IV ×2 (10:06→20:41)
[2023-06-09] MEDS: SENNOSIDES 8.6 MG TABLET PO ×2 (10:06→20:43)
[2023-06-09] MEDS: ACETAMINOPHEN 325 MG TABLET 650 MG PO (10:07)
[2023-06-09] MEDS: METOPROLOL ER 25 MG TABLET PO (10:07)
[2023-06-09] MEDS: MULTIVITAMIN 1 TABLET 1 TAB PO (10:07)
[2023-06-09] MEDS: PREGABALIN 50 MG CAPSULE 200 MG PO ×2 (10:07→20:42)
[2023-06-09] MEDS: GABAPENTIN 600 MG TABLET PO ×2 (10:08→20:41)
--- NOTE | 2023-06-09 11:25 | PT.IPTN ---
Current Diagnoses Periprosthetic fracture around other internal prosthetic joint, initial encounter (06/06/23) Presence of unspecified artificial hip joint (06/06/23) Physical Therapy Treatment Note M2 PT-IP Current Condition Start: 06/07/23 15:28 Freq: NEEDED Status: Active Protocol: Document 06/07/23 13:28 AB (Rec: 06/07/23 15:58 AB [id number]) Physical Therapy Current Condition Current Condition Evaluation Date 06/07/23 Treatment Diagnosis GLF; R periprosthetic fx; difficulty in walking Onset Date 06/06/23 M3 PT-IP Subjective Start: 06/07/23 15:28 Freq: NEEDED Status: Active Protocol: Document 06/09/23 12:22 TS (Rec: 06/09/23 12:34 TS [id number]) Subjective Physical Therapy Visit Type Type Treatment Note Visit Start Time 11:25 Visit Stop Time 12:15 Number of PHYSICAL SECURITY MANAGER Visits 2 Physical Therapy Visit Comments Patient Comments Pt found resting in bed, she would like to get out of bed today. Therapy Pain Assessment Pain When Pain Assessed At Rest Pain Present Pain Present Pain Reported M4 PT-IP Mobility and Gait Start: 06/07/23 15:28 Freq: NEEDED Status: Active Protocol: Document 06/09/23 12:22 TS (Rec: 06/09/23 12:34 TS [id number]) PT-Bed Mobility Assessment Supine to Sit Supine to Sit Moderate Assistance,1 Person Assistance Scooting Scooting to Edge of Bed Moderate Assistance PT-Transfer Assessment Sit to and From Stand Sit to and from Stand Maximum Assistance,2 Person Assistance,Use of Upper Extremities Equipment Transfer Assistive Device Gait Belt,Front Wheeled Walker Orthotic/Prosthetic Devices or Brace: No Comments Mobility Comments Supine to sit HOB elevated 45D ModA x1, pt required SENIOR JAVA J2EE DEVELOPER for uprighting trunk. Pt sat EOB with BUE SBA. required Marlene to scoot hips back further from edge. STS x2 from bed with FWW MaxA x3, nurisng assisted maintaining RLE off ground. She performed stand pivot to commode MaxA x3 with scooting of LLE, pt required cues for FWW management. STS from commode MaxA x3, chair placed behind pt. Pt was left in chair, all needs met. Gait Assessment Comments Gait Comments Stand pivot to commode. PT-Balance Assessment Sitting Balance and Reactions Static Sitting Balance Ability Fair Dynamic Sitting Balance Ability Fair Standing Balance and Reactions Static Standing Balance Ability Fair Dynamic Standing Balance Ability Poor M5 PT-IP Objective Assessments Start: 06/07/23 15:28 Freq: NEEDED Status: Active Protocol: Document 06/07/23 13:28 AB (Rec: 06/07/23 15:58 AB [id number]) Orientation Orientation/Cognition Level of Alertness Alert Orientation Name,Place,Situation Language Function Ability Hard of Hearing Safety Awareness Decreased Safety Awareness Memory Description No Deficits Noted Gross Range of Motion Lower Extremity ROM Impairments RLE with increase pain limiting movement and ROM Strength Lower Extremity Strength Assessment Right Impaired Comments Strength Comments pt with c/o increase RLE pain with movement limiting MMT M6 PT-IP Treatment Start: 06/07/23 15:28 Freq: NEEDED Status: Active Protocol: Document 06/09/23 12:22 TS (Rec: 06/09/23 12:34 TS [id number]) Physical Therapy Treatment Education Education Provided Weight Bearing Status,Safety M7 PT-IP Assessment and Plan Start: 06/07/23 15:28 Freq: NEEDED Status: Active Protocol: Document 06/09/23 12:22 TS (Rec: 06/09/23 12:34 TS [id number]) PT Summary Assessment and Plan Potential Rehabilitation Potential Poor Summary Impairments Pain,ROM,Strength,Balance, Coordination,Sensation,Tone, Cognition,Bed Mobility, Transfers,Gait,Activity Tolerance Progress Towards Goals Slow Progress due to Pain,Slow Progress due to Medical Issues,Slow Progress due to Activity Tolerance Assessment Summary Krystyna is making some progress with her mobility but continues to be limited by pain and poor activity tolerance. She is ModA x1 for bed mobility with SENIOR JAVA J2EE DEVELOPER. She performed STS x3 with FWW and MaxA. She completed stand pivot to commode with scooting of LLE and assist with FWW and maintaining NWB on RLE with 3rd person. She did not have a syncope episode this session. PT continues to recommend SNF rehab at this time. Goals Bed Mobility Goal Moderate Assistance Transfer Goal Moderate Assistance,Front Wheeled Walker Gait Goal Moderate Assistance,Front Wheel Walker Gait Distance 15 Other Goals improve bed mobility, transfers and ambulation 25 ft CGA using fWW Days to Meet Goals 10 Frequency of Treatment Frequency Of Treatment Once a Day Treatment Plan Physical Therapy Treatment Plan Bed Mobility Training,Transfer Training,Gait Training, Therapeutic Exercise,Balance Retraining,Discharge Planning, Hot or Cold Pack,Neuromuscular Re-ed,Coordination Retraining ,Manual Therapy Weight Bearing Status Weight Bearing Status Touch Down Weight Bearing Allowed Weight Bearing Amount (enter % RLE TTWB or #) (%) Recommendations To Nursing Amount of Assist Needed 3 or More Person Assist, Mechanical Lift Discharge Recommendations PT Discharge Recommendations SNF Rehab Transportation Needs at Discharge Stretcher/Ambulance
--- NOTE | 2023-06-09 12:15 | OT.IP.TRT ---
Current Diagnoses Periprosthetic fracture around other internal prosthetic joint, initial encounter (06/06/23) Presence of unspecified artificial hip joint (06/06/23) Occupational Therapy Treatment Note M2 OT-IP Current Condition Start: 06/07/23 12:58 Freq: Status: Active Protocol: Document 06/07/23 15:48 NONA (Rec: 06/07/23 16:17 NONA [id number]) Occupational Therapy Current Condition Current Condition Evaluation Date 06/07/23 Treatment Diagnosis s/p periprosthetic femur fracture Diagnosis Onset Date 06/06/23 Weight Bearing Status Weight Bearing Status Touch Down Weight Bearing M3 OT- IP Subjective and Pain Start: 06/07/23 12:58 Freq: Status: Active Protocol: Document 06/09/23 12:36 [facility] (Rec: 06/09/23 12:45 [facility] [id number]) OT- Subjective Occupational Therapy Visit Type Type Treatment Note Visit Start Time 11:22 Visit Stop Time 12:15 Occupational Therapy Visit Comments Patient Comments Pt agreed to try to get up and try to use the BSC. Patient/Caregiver Goals TO get better. OT Pain Assessment Pain When Pain Assessed At Rest Pain Present Pain Present Pain Reported M4 OT- IP ADL's Start: 06/07/23 12:58 Freq: Status: Active Protocol: Document 06/09/23 12:36 [facility] (Rec: 06/09/23 12:45 [facility] [id number]) OT [id number] Comments OT Self-Feeding Comments not meal time OT ADL-Grooming General Evaluation Grooming Ability Standby Assistance Areas Needing Assistance Retrieving/Set-up of Grooming Items Comments OT Grooming Comments Pt able to do all grooming while seated at the edge of the bed with close SBA after set-up. OT ADL-Oral Care General Eval Oral Care Ability Standby Assistance Areas of Assistance Retrieving/Set-Up of Items Comments Oral Care Comments Able to do while seated on the edge of the bed. OT ADL-Dressing General Eval Lower Body Dressing Ability Total Assistance Areas Needing Assistance Socks OT ADL-Toileting General Evaluation Toileting Ability Total Assistance Areas Needing Assistance Manage Clothing Comments OT Toileting Comments Pt needing assist for all hygiene and brief management needs at this time. OT ADL-Bathing Comments OT Bathing Comments Sponge bath more appropriate. M5 OT- IP IADL's Start: 06/07/23 12:58 Freq: Status: Active Protocol: Document 06/07/23 15:48 [facility] (Rec: 06/07/23 16:17 [facility]ILMA[facility]EDYD[facility] [id number]) OT-Instrumental Activities of Daily Living Home Safety Awareness Awareness of Need for Assistance at Home Decreased Awareness Ability to Problem Solve Emergency Unable to Problem Solve Situations Medication Management Medication Management No Deficits Identified Money Management Money Management No Deficits Identified Meal Preparation Meal Preparation Caregiver Provides Supervision Meal Preparation Comments Pt will need assist on d/c Auto Camp Attendant Auto Camp Attendant Caregiver Provides Assist Auto Camp Attendant Comments Pt will need assist on d/c Driving Driving Caregiver Provides Assist Driving Comments Pt will need assist on d/c M6 OT- IP Functional Cognition Start: 06/07/23 12:58 Freq: Status: Active Protocol: Document 06/09/23 12:36 [facility] (Rec: 06/09/23 12:45 [facility] [id number]) Cognitive Factors Limiting Selfcare Function Cognitive Comments Cognitive Assessment Comments Pt very motivated and able to follow commands for ADL and mobility needs. M7 OT- IP Mobility and Balance Start: 06/07/23 12:58 Freq: Status: Active Protocol: Document 06/09/23 12:36 [facility] (Rec: 06/09/23 12:45 [facility] [id number]) OT- Bed Mobility Assessment Supine to Sit Supine to Sit Assist Moderate Assistance,1 Person Assistance,Head of Bed Elevated Scooting Scooting to Edge of Bed Moderate Assistance,1 Person Assistance,Head of Bed Elevated OT-Transfer Assessment Sit to and From Stand Sit to and from Stand Maximum Assistance,1 Person Assistance,2 Person Assistance Transfers Transfer Ability Maximum Assistance,1 Person Assistance,2 Person Assistance Technique Transfer Destination Bed,Bedside Commode,Chair Transfer Technique Stand Step Pivot Devices Transfer Assistive Devices Gait Belt,Front Wheeled Walker Comments Mobility Comments Pt today able to hop on her LLE and shuffle her foot to be able to transfer to the BSC and then just stand with FWW to swap out with to the recliner with MAX A 2-3 with FWW. Able to get pt's shoe on the LLE which helped pt to be able to mobilize better today as well. OT- Balance Assessment Sitting Balance and Reactions Static Sitting Balance Ability Good Dynamic Sitting Balance Ability Good Standing Balance and Reactions Static Standing Balance Ability Poor Dynamic Standing Balance Ability Poor M8 OT- IP Objective Assessments Start: 06/07/23 12:58 Freq: Status: Active Protocol: Document 06/07/23 15:48 [facility] (Rec: 06/07/23 16:17 VILMAFREDYDANIELL[facility] [id number]) OT Gross Range of Motion Upper Extremity Range of Motion Assessment Within Functional Limits OT Strength Upper Extremity Strength Assessment Within Functional Limits Shoulder B 3+ flexion, B 4- extension Elbow B 4- Hand Branch Officer Strength Hand Dominance Right OT- Coordination Assessment Upper Extremity Finger to Nose Test Within Functional Limits Finger Tapping Test Within Functional Limits OT Sensation Assessment Comments Summary Comments sensation intact for B UEs M9 OT- IP Assessment and Plan Start: 06/07/23 12:58 Freq: Status: Active Protocol: Document 06/09/23 12:36 [facility] (Rec: 06/09/23 12:45 [facility] [id number]) OT Summary Assessment and Plan Potential Rehabilitation Potential Fair Analytic Complexity at Evaluation High Summary OT Impairments Pain,Strength,Balance, Functional Mobility,Grooming, Dressing,Toileting,Bathing, Toilet Transfers,Shower Transfers,Activity Tolerance Progress Towards Goals Slow Progress due to Pain,Slow Progress due to Medical Issues,Slow Progress due to Activity Tolerance Assessment Summary Pt able to complete grooming and oral care needs while seated on the edge of the bed after set-up. Pt able to transfer with FWW with MAXA X2 -3 today . Pt will benefit from skilled rehab when medically stable. Goals Grooming Goal Standby Assistance Dressing Goal Moderate Assistance Toileting Goal Moderate Assistance Bathing Goal Minimal Assistance Toilet Transfer Goal Moderate Assistance Shower Transfer Goal Minimal Assistance Days to Meet Goals 20 Frequency of Treatment Frequency Of Treatment Once a Day Treatment Plan OT Treatment Plan ADL Training,Functional Mobility,Therapeutic Exercises ,Patient/Family Education, Discharge Planning Other Treatment Recommendations and Next recommend OT/PT co-tx, UE Treatment Focus strengthening HEP Discharge Recommendations OT Discharge Recommendations SNF Rehab Transportation Needs at Discharge Wheelchair/Cabulance
--- NOTE | 2023-06-09 13:46 | CM.DPC ---
DCP Cont. Reviewed EMR and team rounds for status updates. Ortho is consulting with Dr. Singh today re: next steps of care, and to make a decision if pt will need to transfer to [facility] for complicated surgical repair. Will continue to monitor and assist with final d/c recommendations and needs.
[2023-06-09] MEDS: OXYCODONE IR 5 MG TABLET PO ×2 (13:49→20:42)
[2023-06-09] MEDS: methocarbamoL 500 MG TABLET 750 MG PO (13:49)
[2023-06-09] MEDS: LACTATED RINGERS 1,000 ML 42 ML IV (15:46)
--- NOTE | 2023-06-09 15:55 | PM.CN ---
History of Present Illness Consult details Date Patient Seen: 06/09/23 Time Patient Seen: 15:55 Chief complaint: GLF Rt femur pain Narrative: 88-year-old woman PMH CHF, peptic ulcer disease, who is admitted to [facility] with a periprosthetic fracture of the hip. During her hospitalization she had an episode coffee-ground emesis. Her hematocrit is 23 today from 37 at admission. She has not on anti coagulation or NSAIDs currently. Presently no abdominal pain or nausea. She is hemodynamically stable. Meds Home Medications and Allergies Home Medications Medication Instructions Recorded Confirmed Type gabapentin 600 mg tablet 600 mg PO BID 07/24/17 06/06/23 History atorvastatin 40 mg tablet 40 mg PO BEDTIME 12/27/21 06/06/23 History metoprolol succinate 25 mg 25 mg PO DAILY 12/27/21 06/06/23 History tablet,extended release 24 hr pregabalin 200 mg capsule 200 mg PO BID 12/27/21 06/06/23 History sertraline 25 mg tablet 25 mg PO DAILY 12/27/21 06/06/23 History acetaminophen 500 mg tablet 500 mg PO DAILY PRN Pain (Scale 05/03/23 06/06/23 History (Tylenol Extra Strength) Score 4-6) acetaminophen 650 mg 650 mg PO BEDTIME 05/03/23 06/07/23 History tablet,extended release (Tylenol 8 Hour) furosemide 20 mg tablet 20 mg PO BID 05/03/23 06/06/23 History losartan 25 mg tablet 25 mg PO DAILY 05/03/23 06/06/23 History multivitamin 1 tab PO DAILY 05/03/23 06/06/23 History aspirin 81 mg tablet 81 mg PO DAILY 06/06/23 06/06/23 History omeprazole magnesium 20 mg 20 mg PO DAILY 06/06/23 06/06/23 History tablet,delayed release (Prilosec OTC) Allergies Allergy/AdvReac Type Severity Reaction Status Date / Time levofloxacin Allergy Mild Verified 05/03/23 14:05 Exam Vital Signs (past 8 hours): - 06/09/23 08:00 06/09/23 08:00 06/09/23 10:07 Temperature Pulse Rate 82 82 Respiratory Rate 19 Blood Pressure 134/61 134/61 Pulse Oximetry 91 91 Oxygen Delivery Method Room Air Oxygen Flow Rate 0 0 06/09/23 11:27 06/09/23 11:30 06/09/23 11:42 Temperature Pulse Rate 82 Respiratory Rate Blood Pressure 130/77 116/60 Pulse Oximetry Oxygen Delivery Method Oxygen Flow Rate 06/09/23 11:42 06/09/23 11:49 06/09/23 12:00 Temperature Pulse Rate 69 Respiratory Rate Blood Pressure 123/58 L Pulse Oximetry 96 96 Oxygen Delivery Method Room Air Oxygen Flow Rate 0 06/09/23 15:20 Temperature 98.5 F Pulse Rate 71 Respiratory Rate 15 Blood Pressure 130/75 Pulse Oximetry 97 Oxygen Delivery Method Room Air Oxygen Flow Rate Oxygen Delivery Method Room Air Oxygen Flow Rate 0 Narrative Exam Narrative: General adult woman alert oriented no acute distress Chest nonlabored respiration Extremities warm well perfused Objective Labs 06/09/23 04:06 06/09/23 04:06 Labs: Laboratory Results - last 24 hr 06/09/23 04:06 WBC 7.5 RBC 2.67 L Hgb 7.9 L Hct 23.4 L MCV 87.7 MCH 29.7 MCHC 33.9 RDW 15.5 H Plt Count 144 L Neut % (Auto) 60.1 Lymph % (Auto) 27.5 [place] % (Auto) 9.8 Eos % (Auto) 2.3 Baso % (Auto) 0.3 Neut # (Auto) 4500 Lymph # (Auto) 2100 [place] # (Auto) 700 Eos # (Auto) 200 Baso # (Auto) 0 Sodium 136 L Potassium 4.5 Chloride 107 Carbon Dioxide 28 BUN 24 H Creatinine 0.77 Estimated GFR > 60 BUN/Creatinine Ratio 31.2 H Glucose 134 H Calcium 8.4 PFSH Medical History Postop check Neck mass Muscle ache Joint swelling Joint pain Neck mass Headache Former smoker Facet arthropathy, lumbosacral Shoulder pain Anxiety Depression Sciatica Easy bruisability UTI (urinary tract infection) Acid reflux Nerve pain due to spinal stenosis History of revision of total replacement of right hip joint Elevated blood pressure reading without diagnosis of hypertension Trigeminal neuralgia Goiter Hip fracture, right Restless leg syndrome Chronic UTI History of anal fissures Surgical History Hx of shoulder surgery S/P epidural steroid injection 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 Father Diabetes mellitus Social History household members: none Tobacco & Substance Use Smoking Status: Former smoker alcohol intake: current Assessment & Plan Assessment and plan (1) Hematemesis of unknown etiology: Status: Acute Assessment & Plan narrative: 88-year-old woman PMH CHF, peptic ulcer disease admitted with a periprosthetic hip fracture with a recent episode of hematemesis and anemia. Recommend that we proceed with diagnostic esophagogastroduodenoscopy. Overview of the procedure was discussed. Procedural risks including hemorrhage, intestinal injury were reviewed. Her questions have been answered she is in agreement with this plan. She provides her written and verbal consent to proceed.
--- NOTE | 2023-06-09 16:19 | P.PN_ITS ---
Subjective Subjective Interval history: Patient still waiting on EGD today. Hgb dipped again to 7.9. SCDs ordered in place of lovenox which was held. She did much better with PT today. Still hasn't had BM. Exam Vital Signs (past 8 hours): - 06/09/23 10:07 06/09/23 11:27 06/09/23 11:30 Temperature Pulse Rate 82 82 Respiratory Rate Blood Pressure 134/61 130/77 Pulse Oximetry Oxygen Delivery Method Oxygen Flow Rate 06/09/23 11:42 06/09/23 11:42 06/09/23 11:49 Temperature Pulse Rate 69 Respiratory Rate Blood Pressure 116/60 123/58 L Pulse Oximetry 96 Oxygen Delivery Method Oxygen Flow Rate 06/09/23 12:00 06/09/23 15:20 Temperature 98.5 F Pulse Rate 71 Respiratory Rate 15 Blood Pressure 130/75 Pulse Oximetry 96 97 Oxygen Delivery Method Room Air Room Air Oxygen Flow Rate 0 Oxygen Delivery Method Room Air Oxygen Flow Rate 0 Narrative Exam Narrative: General:? Patient is well developed and well nourished, in no distress at this time. Lungs:? CTA b/l no wheezing rhonchi or rales. Cardio:?RRR no m/r/g. Abdomen: S NT ND. Extremities: No edema or joint effusions. R leg short and externally rotated Objective Labs 06/09/23 04:06 06/09/23 04:06 Labs: Laboratory Results - last 24 hr 06/09/23 04:06 WBC 7.5 RBC 2.67 L Hgb 7.9 L Hct 23.4 L MCV 87.7 MCH 29.7 MCHC 33.9 RDW 15.5 H Plt Count 144 L Neut % (Auto) 60.1 Lymph % (Auto) 27.5 [place] % (Auto) 9.8 Eos % (Auto) 2.3 Baso % (Auto) 0.3 Neut # (Auto) 4500 Lymph # (Auto) 2100 [place] # (Auto) 700 Eos # (Auto) 200 Baso # (Auto) 0 Sodium 136 L Potassium 4.5 Chloride 107 Carbon Dioxide 28 BUN 24 H Creatinine 0.77 Estimated GFR > 60 BUN/Creatinine Ratio 31.2 H Glucose 134 H Calcium 8.4 PFSH Medical History Postop check Neck mass Muscle ache Joint swelling Joint pain Neck mass Headache Former smoker Facet arthropathy, lumbosacral Shoulder pain Anxiety Depression Sciatica Easy bruisability UTI (urinary tract infection) Acid reflux Nerve pain due to spinal stenosis History of revision of total replacement of right hip joint Elevated blood pressure reading without diagnosis of hypertension Trigeminal neuralgia Goiter Hip fracture, right Restless leg syndrome Chronic UTI History of anal fissures Surgical History Hx of shoulder surgery S/P epidural steroid injection 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 Father Diabetes mellitus Social History household members: none Smoking Status: Former smoker alcohol intake: current Assessment & Plan Assessment & Plan narrative: # R periprosthetic femur fracture - Per discussion with Dr. Sherwood, orthopedics, recommend conservative management strategy with pain control, TTWB RLE if possible, in hopes of avoiding surgery as surgery would be extensive and complex and is medically risky as would likely result in a large blood loss. Patient would go to if fails conservative management. - For now, pain control with tylenol, oxycodone, prn dilaudid for breakthrough. She states she is a bit more comfortable, but still in a lot of pain after initial IV medications. Suspect pain control will be difficult. - TTWB RLE with PT / OT, appreciate orthopedics management. - continue home pregabalin 200 mg BID and sertraline - started daily laxatives for constipation - patient now doing better with PT, repeat XR showed no change in hardware or fracture # acute blood loss anemia, hematemesis ruled out - continue to trend h/h, suspect nausea/ vomiting due to pain medications. Started on IV PPI empirically. Held aspirin and lovenox. - EKG performed not consistent with ACS. - Hgb now dropping 12.1>7.9 in 3 days - Dr. Paulino gen surg consulted for EGD on 06/08, returned as normal so doubt hematemesis # chronic diastolic heart failure - continue home furosemide 20 mg PO BID, no signs of acute heart failure - continue home metoprolol, atorvastatin, losartan # HTN - continue home furosemide and metoprolol and losartan # HLD - continue home statin Code: Full, surrogate is Scarlett Cohen I have utilized all available immediate resources to obtain, update, or review the patient's current medications. DVT: lovenox daily Dispo: Doing better with PT now, so likely SNF over transfer for surgery.
--- NOTE | 2023-06-09 16:26 | PM.OP.EGD ---
Operative Date/Time/Diagnoses Date of procedure: 06/09/23 Time of procedure: 16:26 Pre-op diagnosis: Anemia, hematemesis Procedure & Clinicians Study performed: Diagnostic esophagogastroduodenoscopy Same procedure as scheduled: Yes Indications: 88-year-old woman hemodynamically stable admitted with a periprosthetic fracture with an episode of possible hematemesis found to have anemia. Surgeon: Torsten Paulino Procedure Notes Procedure in detail: The history and physical was performed/updated and the patient is ASA class is 3. The procedure was discussed in detail with the patient. Potential risks complications including infection, bleeding, missed diagnosis, perforation, need for surgery, and were explained. Their questions were answered and informed consent was obtained. Patient placed in left lateral decubitus position. Time out was performed. Procedural sedation was administered by Anesthesia. A bite block was placed. the scope was inserted into the mouth and advanced through the esophagus and into the stomach. The pylorus was intubated and the duodenum was examined to the 2nd portion. The scope was then withdrawn into the stomach and was retroflexed. The stomach was decompressed and scope was withdrawn slowly through the esophagus. FINDINGS Unremarkable upper endoscopy. No gastritis duodenitis or peptic ulcer. The patient tolerated the procedure well and will be discharged when they meet criteria. Specimen(s): none sent Impression: Normal upper endoscopy Post-procedure Disposition: Acute Care
[2023-06-09] MEDS: LACTULOSE 20 GM/30 ML SOLUTION PO (17:20)
[2023-06-09] MEDS: polyethylene glycoL 3350 17 GM POWD.PACK PO (17:20)
--- NOTE | 2023-06-09 18:54 | P.PN_ITS ---
Subjective Subjective Interval history: Extensive surgical history taken from our office notes as well as Dr Sherwood's H&P: -1993: Right total knee arthroplasty -2006: Open reduction internal fixation of right periprosthetic femur fracture above total knee -2016: Right hip uncemented hemiarthroplasty for femoral neck fracture at [facility] -2017: Revision of right hip femoral component with Open reduction internal fixation of right inter prosthetic femoral stress fracture; this was performed by Dr Gabriella Tucker. -2018: L3-4 laminectomy and L4-[address] Mika Barrett Today patient states she is still having moderate-severe pain but it is becoming more tolerable. Her main concern is her mobility. She expresses significant concerns with how she can safely TTWB w/o causing severe hip pain and worsening of her fracture. She worked with PT today with good results however. Denies fever, chills, chest pain, SOB, nausea or vomiting. Exam Vital Signs (past 8 hours): - 06/09/23 11:27 06/09/23 11:30 06/09/23 11:42 Temperature Pulse Rate 82 Respiratory Rate Blood Pressure 130/77 116/60 Pulse Oximetry Oxygen Delivery Method Oxygen Flow Rate 06/09/23 11:42 06/09/23 11:49 06/09/23 12:00 Temperature Pulse Rate 69 Respiratory Rate Blood Pressure 123/58 L Pulse Oximetry 96 96 Oxygen Delivery Method Room Air Oxygen Flow Rate 0 06/09/23 15:20 06/09/23 16:27 06/09/23 16:30 Temperature 98.5 F 99.8 F H Pulse Rate 71 76 75 Respiratory Rate 15 13 13 Blood Pressure 130/75 106/46 L 105/49 L Pulse Oximetry 97 96 97 Oxygen Delivery Method Room Air Room Air Room Air Oxygen Flow Rate 06/09/23 16:35 06/09/23 16:45 06/09/23 16:55 Temperature Pulse Rate 76 75 75 Respiratory Rate 13 14 21 Blood Pressure 130/53 L 111/52 L 120/63 Pulse Oximetry 96 96 97 Oxygen Delivery Method Room Air Room Air Room Air Oxygen Flow Rate 06/09/23 17:05 06/09/23 17:35 06/09/23 18:05 Temperature 97.5 F L Pulse Rate 74 82 88 Respiratory Rate 22 Blood Pressure 153/62 H 182/48 H 149/64 H Pulse Oximetry 96 98 94 Oxygen Delivery Method Oxygen Flow Rate 0 0 0 Oxygen Delivery Method Room Air Oxygen Flow Rate 0 Narrative Exam Narrative: lying in bed comfortably during our interview today. Const General: cooperative Orientation: alert Resp Effort & Inspection: normal respiratory effort and able to speak in complete sentences Cardio Rate: regular rate Neuro General: patient alert, patient awake and patient oriented x3 Extrem Other: Sensation intact throughout BL lower extremities. Wiggles all toes equally, 5/5 strength with DF, PF, EHL. Calves soft and non-tender bilaterally. Psych Other: Anxious affect Objective Labs 06/09/23 04:06 06/09/23 04:06 Labs: Laboratory Results - last 24 hr 06/09/23 04:06 WBC 7.5 RBC 2.67 L Hgb 7.9 L Hct 23.4 L MCV 87.7 MCH 29.7 MCHC 33.9 RDW 15.5 H Plt Count 144 L Neut % (Auto) 60.1 Lymph % (Auto) 27.5 [place] % (Auto) 9.8 Eos % (Auto) 2.3 Baso % (Auto) 0.3 Neut # (Auto) 4500 Lymph # (Auto) 2100 [place] # (Auto) 700 Eos # (Auto) 200 Baso # (Auto) 0 Sodium 136 L Potassium 4.5 Chloride 107 Carbon Dioxide 28 BUN 24 H Creatinine 0.77 Estimated GFR > 60 BUN/Creatinine Ratio 31.2 H Glucose 134 H Calcium 8.4 PFSH Medical History Postop check Neck mass Muscle ache Joint swelling Joint pain Neck mass Headache Former smoker Facet arthropathy, lumbosacral Shoulder pain Anxiety Depression Sciatica Easy bruisability UTI (urinary tract infection) Acid reflux Nerve pain due to spinal stenosis History of revision of total replacement of right hip joint Elevated blood pressure reading without diagnosis of hypertension Trigeminal neuralgia Goiter Hip fracture, right Restless leg syndrome Chronic UTI History of anal fissures Surgical History Hx of shoulder surgery S/P epidural steroid injection 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 Father Diabetes mellitus Social History household members: none Smoking Status: Former smoker alcohol intake: current Assessment & Plan Assessment and plan (1) Periprosthetic fracture of hip: Qualifiers: Encounter type: subsequent encounter Qualified Code(s): M97.8XXD - Periprosthetic fracture around other internal prosthetic joint, subsequent encounter; Z96.649 - Presence of unspecified artificial hip joint Status: Acute Plan: The patient has a new periprosthetic hip fracture. Dr Sherwood spoke at length to the orthopedist at , who recommended 6-8 weeks of protected weight-bearing. The patient has been admitted here and we will plan to have her mobilize with a walker while maintaining toe-touch weight-bearing. Repeat radiographs were obtained today and showed no worsening of the fracture. Should she have a failure of nonoperative treatment we would re-initiate the transfer process [facility] for consideration revision plating likely with maintenance of her hemiarthroplasty and total knee arthroplasty. I discussed this with the patient, who is adamant that she is unable to weight bear/touch her foot to the ground. VTE prophylaxis per hospitalist service. She is currently receiving enoxaparin.
[2023-06-09] MEDS: ATORVASTATIN 20 MG TABLET 40 MG PO (20:42)
[2023-06-09] MEDS: FUROSEMIDE 20 MG TABLET PO (20:42)
[2023-06-09] MEDS: FLEETS ENEMA 1 EACH PR (22:17)
--- NOTE | 2023-06-09 22:55 | PC.NURSE ---
Pt had dark BM, guaiac is positive. Notified Dr. Coffman. New orders to check h&h in am.
[2023-06-10] VITALS (11 sets, daily range): BP systolic 103–130; BP diastolic 46–62; PULSE 66–100; RESP 16–22; TEMP 36.2–37.4; O2SAT 91–96
[2023-06-10 05:09] LABS: Blood Urea Nitrogen 20 mg/dL (7-17); Calcium 8.2 mg/dL (8.4-10.2); Carbon Dioxide 31 mmol/L (22-32); Chloride 103 mmol/L (98-107); Estimated Glomerular Filt Rate > 60 mL/min (>60); Glucose 131 mg/dL (80-110); HEMOLYSIS < 15 (0-50); Potassium 4.1 mmol/L (3.4-5.1); Sodium 134 mmol/L (137-145)
[2023-06-10 05:17] LABS: Add Manual Diff / Slide Review NO; Basophils Absolute Auto 0 /uL (0-100); Basophils Percent Auto 0.3 % (0-2); Eosinophils Absolute Auto 100 /uL (0-450); Eosinophils Percent Auto 1.3 % (2-4); Hematocrit 21.6 % (36-46); Hemoglobin 7.2 g/dL (12.0-16.0); Lymphocytes Absolute Auto 1900 /uL (1100-4500); Lymphocytes Percent Auto 23.6 % (25-40); Mean Corpuscular HGB Conc 33.3 % (30-36); Mean Corpuscular Hemoglobin 28.7 PG (26-34); Mean Corpuscular Volume 86.3 fL (80-100); Monocytes Absolute Auto 800 /uL (0-900); Neutrophils Absolute Auto 5400 /uL (1500-7000); Neutrophils Percent Auto 64.8 % (50-75); Platelet Count 161 X10^3/uL (150-400); Red Cell Distribution Width 15.1 % (11.6-14.8); White Blood Cell Count 8.3 X10^3/uL (4.5-11.0)
--- NOTE | 2023-06-10 07:48 | PM.PN.1 ---
Subjective Subjective Interval history: Her pain is manageable. She was up all night having bowel movements and has persistent constipation. She requests another enema. No dyspnea. Exam Vital Signs (past 8 hours): - 06/10/23 00:00 06/10/23 00:00 06/10/23 04:00 Temperature 99.4 F Pulse Rate 83 Respiratory Rate 16 Blood Pressure 127/48 L Pulse Oximetry 91 91 Oxygen Delivery Method Room Air Room Air Oxygen Flow Rate 0 06/10/23 04:00 Temperature 99 F Pulse Rate 92 H Respiratory Rate 18 Blood Pressure 130/55 L Pulse Oximetry 94 Oxygen Delivery Method Oxygen Flow Rate 0 Oxygen Delivery Method Room Air Oxygen Flow Rate 0 Narrative Exam Narrative: NAD, speech is fluent. Lungs are clear with normal rate and effort. Heart is regular, no murmur. Abdomen is mildly distended and not tender. No leg edema. Objective Labs 06/10/23 04:38 06/10/23 04:38 Labs: Laboratory Results - last 24 hr 06/10/23 04:38 WBC 8.3 RBC 2.50 L Hgb 7.2 L Hct 21.6 L MCV 86.3 MCH 28.7 MCHC 33.3 RDW 15.1 H Plt Count 161 Neut % (Auto) 64.8 Lymph % (Auto) 23.6 L [place] % (Auto) 10.0 Eos % (Auto) 1.3 L Baso % (Auto) 0.3 Neut # (Auto) 5400 Lymph # (Auto) 1900 [place] # (Auto) 800 Eos # (Auto) 100 Baso # (Auto) 0 Sodium 134 L Potassium 4.1 Chloride 103 Carbon Dioxide 31 BUN 20 H Creatinine 0.77 Estimated GFR > 60 BUN/Creatinine Ratio 26.0 H Glucose 131 H Calcium 8.2 L PFSH Medical History Postop check Neck mass Muscle ache Joint swelling Joint pain Neck mass Headache Former smoker Facet arthropathy, lumbosacral Shoulder pain Anxiety Depression Sciatica Easy bruisability UTI (urinary tract infection) Acid reflux Nerve pain due to spinal stenosis History of revision of total replacement of right hip joint Elevated blood pressure reading without diagnosis of hypertension Trigeminal neuralgia Goiter Hip fracture, right Restless leg syndrome Chronic UTI History of anal fissures Surgical History Hx of shoulder surgery S/P epidural steroid injection 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 Father Diabetes mellitus Social History household members: none Smoking Status: Former smoker alcohol intake: current Assessment & Plan Assessment & Plan narrative: 1. Right coco prosthetic femur fracture, present on admission and active. - Per discussion with Dr. Sherwood, orthopedics, recommend conservative management strategy with pain control, TTWB RLE if possible, in hopes of avoiding surgery as surgery would be extensive and complex and is medically risky as would likely result in a large blood loss. Patient would go to if fails conservative management. - For now, pain control with tylenol, oxycodone, prn dilaudid for breakthrough. She states she is a bit more comfortable, but still in a lot of pain after initial IV medications. Suspect pain control will be difficult. - TTWB RLE with PT / OT, appreciate orthopedics management. - continue home pregabalin 200 mg BID and sertraline - started daily laxatives for constipation 2. Acute blood loss anemia, hematemesis ruled out (likely from fracture), present on admission and active. - continue to trend h/h, suspect nausea/ vomiting due to pain medications. Started on IV PPI empirically. Held aspirin and lovenox. - EKG performed not consistent with ACS. - Hgb now dropping 12.1>7.9 in 3 days - Dr. Paulino gen surg consulted for EGD on 06/08, returned as normal so doubt hematemesis -will discuss transfusion if hemoglobin under 7.0. 3. Chronic diastolic heart failure, present on admission and active. - continue home furosemide 20 mg PO BID, no signs of acute heart failure - continue home metoprolol, atorvastatin, losartan 4. HTN, present on admission and active. - continue home furosemide and metoprolol and losartan 5. HLD, present on admission and active. - continue home statin 6. Constipation, present on admission and active. -enema today. Code: Full, surrogate is Scarlett Cohen DVT: lovenox daily Dispo: Doing better with PT now, so likely SNF (1-2 days) over transfer for surgery.
[2023-06-10] MEDS: PANTOPRAZOLE 40 MG VIAL IV ×2 (08:50→20:41)
[2023-06-10] MEDS: polyethylene glycoL 3350 17 GM POWD.PACK PO (08:50)
[2023-06-10] MEDS: LACTULOSE 20 GM/30 ML SOLUTION PO (08:53)
[2023-06-10] MEDS: FLEETS ENEMA 1 EACH PR (08:53)
[2023-06-10] MEDS: METOPROLOL ER 25 MG TABLET PO (08:54)
[2023-06-10] MEDS: MULTIVITAMIN 1 TABLET 1 TAB PO (08:54)
[2023-06-10] MEDS: LOSARTAN 25 MG TABLET PO (08:54)
[2023-06-10] MEDS: FUROSEMIDE 20 MG TABLET PO ×2 (08:55→20:41)
[2023-06-10] MEDS: GABAPENTIN 600 MG TABLET PO ×2 (08:55→20:41)
[2023-06-10] MEDS: SERTRALINE 50 MG TABLET 25 MG PO (08:55)
[2023-06-10] MEDS: SENNOSIDES 8.6 MG TABLET PO ×2 (08:56→20:41)
[2023-06-10] MEDS: PREGABALIN 50 MG CAPSULE 200 MG PO ×2 (08:56→20:41)
--- NOTE | 2023-06-10 09:21 | CM.DPC ---
DCP Cont. Reviewed EMR and team rounds for status updates. Per Ortho and Hospitalist, plan is to continue efforts of conservative measures in lieu of surgery for now, work with therapies as tolerated. Ortho will reassess this after the weekend for final recommendations. If no surgery, she will need SNF rehab, [facility] is preference, but this [employer]NAGEMENT [employer]NER will wait to send referral and clinicals until we have a clarification on final d/c recommendations.
--- NOTE | 2023-06-10 10:42 | PM.CN ---
History of Present Illness Consult details Date Patient Seen: 06/10/23 Time Patient Seen: 10:00 Chief complaint: GLF Rt femur pain Narrative: Interval history: Extensive surgical history taken from our office notes as well as Dr Sherwood's H&P: -1993: Right total knee arthroplasty -2006: Open reduction internal fixation of right periprosthetic femur fracture above total knee -2016: Right hip uncemented hemiarthroplasty for femoral neck fracture at [facility] -2017: Revision of right hip femoral component with Open reduction internal fixation of right inter prosthetic femoral stress fracture; this was performed by Dr Gabriella Tucker. -2018: L3-4 laminectomy and L4-[address] Mika Barrett Majority of patient's complaint today is with regards to GI issues. She is gotten some relief with small bowel movement last night. She does have difficulty working with physical therapy. She only has pain with her hip with any movement or direct contact over the fracture site. Meds Home Medications and Allergies Home Medications Medication Instructions Recorded Confirmed Type gabapentin 600 mg tablet 600 mg PO BID 07/24/17 06/06/23 History atorvastatin 40 mg tablet 40 mg PO BEDTIME 12/27/21 06/06/23 History metoprolol succinate 25 mg 25 mg PO DAILY 12/27/21 06/06/23 History tablet,extended release 24 hr pregabalin 200 mg capsule 200 mg PO BID 12/27/21 06/06/23 History sertraline 25 mg tablet 25 mg PO DAILY 12/27/21 06/06/23 History acetaminophen 500 mg tablet 500 mg PO DAILY PRN Pain (Scale 05/03/23 06/06/23 History (Tylenol Extra Strength) Score 4-6) acetaminophen 650 mg 650 mg PO BEDTIME 05/03/23 06/07/23 History tablet,extended release (Tylenol 8 Hour) furosemide 20 mg tablet 20 mg PO BID 05/03/23 06/06/23 History losartan 25 mg tablet 25 mg PO DAILY 05/03/23 06/06/23 History multivitamin 1 tab PO DAILY 05/03/23 06/06/23 History aspirin 81 mg tablet 81 mg PO DAILY 06/06/23 06/06/23 History omeprazole magnesium 20 mg 20 mg PO DAILY 06/06/23 06/06/23 History tablet,delayed release (Prilosec OTC) Allergies Allergy/AdvReac Type Severity Reaction Status Date / Time levofloxacin Allergy Mild Verified 05/03/23 14:05 Exam Vital Signs (past 8 hours): - 06/10/23 04:00 06/10/23 04:00 06/10/23 08:00 Temperature 99 F Pulse Rate 92 H Respiratory Rate 18 Blood Pressure 130/55 L Pulse Oximetry 94 94 Oxygen Delivery Method Room Air Room Air Oxygen Flow Rate 0 0 06/10/23 08:54 06/10/23 08:54 Temperature Pulse Rate 100 H 100 H Respiratory Rate Blood Pressure 107/62 107/62 Pulse Oximetry Oxygen Delivery Method Oxygen Flow Rate Oxygen Delivery Method Room Air Oxygen Flow Rate 0 Narrative Exam Narrative: Point tenderness over the greater trochanter. No pain or warmth noted with compression of the posterior thigh or calf. Sensation grossly intact to light palpation throughout the right lower extremity. Able to dorsiflex and plantar flex against resistance of the right and left ankles. Objective Labs 06/10/23 04:38 06/10/23 04:38 Labs: Laboratory Results - last 24 hr 06/10/23 04:38 WBC 8.3 RBC 2.50 L Hgb 7.2 L Hct 21.6 L MCV 86.3 MCH 28.7 MCHC 33.3 RDW 15.1 H Plt Count 161 Neut % (Auto) 64.8 Lymph % (Auto) 23.6 L [place] % (Auto) 10.0 Eos % (Auto) 1.3 L Baso % (Auto) 0.3 Neut # (Auto) 5400 Lymph # (Auto) 1900 [place] # (Auto) 800 Eos # (Auto) 100 Baso # (Auto) 0 Sodium 134 L Potassium 4.1 Chloride 103 Carbon Dioxide 31 BUN 20 H Creatinine 0.77 Estimated GFR > 60 BUN/Creatinine Ratio 26.0 H Glucose 131 H Calcium 8.2 L PFSH Medical History Postop check Neck mass Muscle ache Joint swelling Joint pain Neck mass Headache Former smoker Facet arthropathy, lumbosacral Shoulder pain Anxiety Depression Sciatica Easy bruisability UTI (urinary tract infection) Acid reflux Nerve pain due to spinal stenosis History of revision of total replacement of right hip joint Elevated blood pressure reading without diagnosis of hypertension Trigeminal neuralgia Goiter Hip fracture, right Restless leg syndrome Chronic UTI History of anal fissures Surgical History Hx of shoulder surgery S/P epidural steroid injection 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 Father Diabetes mellitus Social History household members: none Tobacco & Substance Use Smoking Status: Former smoker alcohol intake: current Assessment & Plan Assessment & Plan narrative: The patient has a new periprosthetic hip fracture. Dr Sherwood spoke at length to the orthopedist at , who recommended 6-8 weeks of protected weight-bearing. The patient has been admitted here and we will plan to have her mobilize with a walker while maintaining toe-touch weight-bearing. Should she have a failure of nonoperative treatment we would re-initiate the transfer process [facility] for consideration revision plating likely with maintenance of her hemiarthroplasty and total knee arthroplasty. Time Spent With Patient Time with patient: less than 30 minutes
--- NOTE | 2023-06-10 13:25 | PT-IP ANOTE ---
Pt is not appropriate for PT this afternoon due to low H&H, she is to receive a unit of blood. PT will check on pt tomorrow.
[2023-06-10] MEDS: methocarbamoL 500 MG TABLET 750 MG PO (14:32)
[2023-06-10 18:09] LABS: Hematocrit 26.5 % (36-46); Hemoglobin 8.9 g/dL (12.0-16.0)
[2023-06-10] MEDS: ATORVASTATIN 20 MG TABLET 40 MG PO (20:41)
[2023-06-11] VITALS (11 sets, daily range): BP systolic 115–136; BP diastolic 49–73; PULSE 74–82; RESP 16–23; TEMP 36.6–37.7; O2SAT 94–97
[2023-06-11 04:46] LABS: Add Manual Diff / Slide Review NO; Basophils Absolute Auto 0 /uL (0-100); Basophils Percent Auto 0.4 % (0-2); Eosinophils Absolute Auto 200 /uL (0-450); Eosinophils Percent Auto 1.8 % (2-4); Hematocrit 26.5 % (36-46); Hemoglobin 8.9 g/dL (12.0-16.0); Lymphocytes Absolute Auto 2300 /uL (1100-4500); Lymphocytes Percent Auto 27.6 % (25-40); Mean Corpuscular HGB Conc 33.7 % (30-36); Mean Corpuscular Hemoglobin 29.2 PG (26-34); Mean Corpuscular Volume 86.7 fL (80-100); Monocytes Absolute Auto 900 /uL (0-900); Monocytes Percent Auto 10.4 % (3-14); Neutrophils Absolute Auto 5000 /uL (1500-7000); Neutrophils Percent Auto 59.8 % (50-75); Platelet Count 199 X10^3/uL (150-400); Red Blood Cell Count 3.06 X10^6/uL (4.0-5.2); Red Cell Distribution Width 15.2 % (11.6-14.8); White Blood Cell Count 8.4 X10^3/uL (4.5-11.0)
[2023-06-11 05:00] LABS: BUN Creatinine Ratio 19.2 (6-22); Blood Urea Nitrogen 15 mg/dL (7-17); Calcium 8.4 mg/dL (8.4-10.2); Carbon Dioxide 32 mmol/L (22-32); Chloride 103 mmol/L (98-107); Estimated Glomerular Filt Rate > 60 mL/min (>60); Glucose 131 mg/dL (80-110); HEMOLYSIS < 15 (0-50); Potassium 3.8 mmol/L (3.4-5.1); Sodium 135 mmol/L (137-145)
--- NOTE | 2023-06-11 08:09 | PM.PN.1 ---
Subjective Subjective Interval history: Denies dyspnea, chest pain, or abdomen pain. She would more melena overnight, but her H and H is stable to improve this morning. Developed melena June 09. An EGD 2 days prior was unremarkable. Is given 1 unit of blood on June 09 and her hemoglobin is being monitored. Exam Vital Signs (past 8 hours): - 06/11/23 04:00 06/11/23 04:47 06/11/23 07:47 Temperature 97.8 F 98.3 F Pulse Rate 74 80 Respiratory Rate 21 16 Blood Pressure 136/71 126/73 Pulse Oximetry 95 95 95 Oxygen Delivery Method Room Air Oxygen Flow Rate 0 06/11/23 08:00 Temperature Pulse Rate Respiratory Rate Blood Pressure Pulse Oximetry 94 Oxygen Delivery Method Room Air Oxygen Flow Rate 0 Oxygen Delivery Method Room Air Oxygen Flow Rate 0 Narrative Exam Narrative: NAD, alert and oriented. Fluent speech. Lungs are clear, normal rate and effort. Heart is regular, no murmur gallop or rub. Abdomen is soft, non distended. Extremities are free of edema. Objective Labs 06/11/23 10:15 06/11/23 04:20 Labs: Laboratory Results - last 24 hr 06/10/23 06/10/23 06/11/23 11:56 18:00 04:20 WBC 8.4 RBC 3.06 L Hgb 8.9 L 8.9 L Hct 26.5 L 26.5 L MCV 86.7 MCH 29.2 MCHC 33.7 RDW 15.2 H Plt Count 199 Neut % (Auto) 59.8 Lymph % (Auto) 27.6 [place] % (Auto) 10.4 Eos % (Auto) 1.8 L Baso % (Auto) 0.4 Neut # (Auto) 5000 Lymph # (Auto) 2300 [place] # (Auto) 900 Eos # (Auto) 200 Baso # (Auto) 0 Sodium 135 L Potassium 3.8 Chloride 103 Carbon Dioxide 32 BUN 15 Creatinine 0.78 Estimated GFR > 60 BUN/Creatinine Ratio 19.2 Glucose 131 H Calcium 8.4 Blood Type O Positive Antibody Screen Negative Crossmatch See Detail [facility] Medical History Postop check Neck mass Muscle ache Joint swelling Joint pain Neck mass Headache Former smoker Facet arthropathy, lumbosacral Shoulder pain Anxiety Depression Sciatica Easy bruisability UTI (urinary tract infection) Acid reflux Nerve pain due to spinal stenosis History of revision of total replacement of right hip joint Elevated blood pressure reading without diagnosis of hypertension Trigeminal neuralgia Goiter Hip fracture, right Restless leg syndrome Chronic UTI History of anal fissures Surgical History Hx of shoulder surgery S/P epidural steroid injection 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 Father Diabetes mellitus Social History household members: none Smoking Status: Former smoker alcohol intake: current Assessment & Plan Assessment & Plan narrative: 1. Right coco-prosthetic femur fracture, present on admission and active. - Per discussion with Dr. Sherwood, orthopedics, recommend conservative management strategy with pain control, TTWB RLE if possible, in hopes of avoiding surgery as surgery would be extensive and complex and is medically risky as would likely result in a large blood loss. Patient would go to if fails conservative management. - Continue pain control with tylenol, oxycodone. Pain control seems to be good. - TTWB RLE with PT / OT, appreciate orthopedics management. - continue home pregabalin 200 mg BID and sertraline 2. Melena, new and active. - given 1 unit of blood and continue IV Protonix. Monitor H/H. 3. Acute blood loss anemia, present on admission and active. - Dr. Paulino gen surg consulted for EGD on 06/08, returned as normal. 4. Chronic diastolic heart failure, present on admission and stable. - continue home furosemide 20 mg PO BID, metoprolol, atorvastatin, losartan. 5. HTN, present on admission and active. - continue medications as above. 6. HLD, present on admission and active. - continue home statin 7. Constipation, present on admission and resolved. -follow. Code: Full, surrogate is Scarlett Cohen DVT: hold for melena, SCD. DISPO: SNF in 1-2 days.
--- NOTE | 2023-06-11 09:44 | P.PN_ITS ---
Subjective Subjective Interval history: Patient with a right hip periprosthetic fracture being treated nonoperatively. Patient's main complaints today are due to black tarry stools. Does give a recent history of vomiting blood as well. Also concerned of the rotational deformity to the leg. Exam Vital Signs (past 8 hours): - 06/11/23 04:00 06/11/23 04:47 06/11/23 07:47 Temperature 97.8 F 98.3 F Pulse Rate 74 80 Respiratory Rate 21 16 Blood Pressure 136/71 126/73 Pulse Oximetry 95 95 95 Oxygen Delivery Method Room Air Oxygen Flow Rate 0 06/11/23 08:00 Temperature Pulse Rate Respiratory Rate Blood Pressure Pulse Oximetry 94 Oxygen Delivery Method Room Air Oxygen Flow Rate 0 Oxygen Delivery Method Room Air Oxygen Flow Rate 0 Narrative Exam Narrative: Patient's compartments are soft. Does have some rotational difference when compared to the compared to the contralateral side. But is able to dorsiflex and plantar flex the toes and ankle. Palpable pedal pulses. Objective Labs 06/11/23 04:20 06/11/23 04:20 Labs: Laboratory Results - last 24 hr 06/10/23 06/10/23 06/11/23 11:56 18:00 04:20 WBC 8.4 RBC 3.06 L Hgb 8.9 L 8.9 L Hct 26.5 L 26.5 L MCV 86.7 MCH 29.2 MCHC 33.7 RDW 15.2 H Plt Count 199 Neut % (Auto) 59.8 Lymph % (Auto) 27.6 [place] % (Auto) 10.4 Eos % (Auto) 1.8 L Baso % (Auto) 0.4 Neut # (Auto) 5000 Lymph # (Auto) 2300 [place] # (Auto) 900 Eos # (Auto) 200 Baso # (Auto) 0 Sodium 135 L Potassium 3.8 Chloride 103 Carbon Dioxide 32 BUN 15 Creatinine 0.78 Estimated GFR > 60 BUN/Creatinine Ratio 19.2 Glucose 131 H Calcium 8.4 Blood Type O Positive Antibody Screen Negative Crossmatch See Detail [facility] Medical History Postop check Neck mass Muscle ache Joint swelling Joint pain Neck mass Headache Former smoker Facet arthropathy, lumbosacral Shoulder pain Anxiety Depression Sciatica Easy bruisability UTI (urinary tract infection) Acid reflux Nerve pain due to spinal stenosis History of revision of total replacement of right hip joint Elevated blood pressure reading without diagnosis of hypertension Trigeminal neuralgia Goiter Hip fracture, right Restless leg syndrome Chronic UTI History of anal fissures Surgical History Hx of shoulder surgery S/P epidural steroid injection 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 Father Diabetes mellitus Social History household members: none Smoking Status: Former smoker alcohol intake: current Assessment & Plan Post-op Postoperative Procedures: Procedures Operation Date: 06/09/23 15:00 Actual Procedure Side Surgeon p Esophagogastroduodenoscopy Torsten Paulino MD Postoperative plan narrative: Patient will continue nonweightbearing to the right lower extremity.
[2023-06-11] MEDS: methocarbamoL 500 MG TABLET 750 MG PO ×2 (10:12→18:23)
[2023-06-11] MEDS: PANTOPRAZOLE 40 MG VIAL IV ×2 (10:12→20:09)
[2023-06-11] MEDS: PREGABALIN 50 MG CAPSULE 200 MG PO ×2 (10:12→20:09)
[2023-06-11] MEDS: MULTIVITAMIN 1 TABLET 1 TAB PO (10:12)
[2023-06-11] MEDS: GABAPENTIN 600 MG TABLET PO ×2 (10:13→20:08)
[2023-06-11] MEDS: LOSARTAN 25 MG TABLET PO (10:13)
[2023-06-11] MEDS: METOPROLOL ER 25 MG TABLET PO (10:13)
[2023-06-11] MEDS: SERTRALINE 50 MG TABLET 25 MG PO (10:13)
[2023-06-11] MEDS: FUROSEMIDE 20 MG TABLET PO ×2 (10:14→20:09)
[2023-06-11 10:18] LABS: Hematocrit 27.3 % (36-46); Hemoglobin 9.1 g/dL (12.0-16.0)
--- NOTE | 2023-06-11 11:47 | PT.IPTN ---
Current Diagnoses Hematemesis (06/06/23) Periprosthetic fracture around other internal prosthetic joint, initial encounter (06/06/23) Periprosthetic fracture around other internal prosthetic joint, subsequent encounter (06/06/23) Presence of unspecified artificial hip joint (06/06/23) Surgery Performed Operation Date: 06/09/23 15:00 Actual Procedures p Esophagogastroduodenoscopy - Torsten Paulino MD Physical Therapy Treatment Note M2 PT-IP Current Condition Start: 06/07/23 15:28 Freq: NEEDED Status: Active Protocol: Document 06/07/23 13:28 AB (Rec: 06/07/23 15:58 AB [id number]) Physical Therapy Current Condition Current Condition Evaluation Date 06/07/23 Treatment Diagnosis GLF; R periprosthetic fx; difficulty in walking Onset Date 06/06/23 M3 PT-IP Subjective Start: 06/07/23 15:28 Freq: NEEDED Status: Active Protocol: Document 06/11/23 10:53 MB (Rec: 06/11/23 11:47 MB [id number]) Subjective Physical Therapy Visit Type Type Treatment Note Visit Start Time 10:53 Visit Stop Time 11:38 Notes HGB 9.1 this a.m. Number of HEAT SEAL OPERATOR Visits 0 Physical Therapy Visit Comments Patient Comments Pt and daughter in room and agreeable to therapy. Pt reports many questions and concerns that she has not yet had answered before she anticipates being able to leave the hospital. Therapy Pain Assessment Pain When Pain Assessed During Mobility Pain Present Pain Present Pain Reported Location Right Hip Intensity 5 Scale Used Lee-Lambert (Faces) Pain Behaviors Calling Out,Facial Grimacing, Guarding,Holding Area,Wincing Pain Management Techniques Distraction,Modification of Treatment,Re-positioning M4 PT-IP Mobility and Gait Start: 06/07/23 15:28 Freq: NEEDED Status: Active Protocol: Document 06/11/23 10:53 MB (Rec: 06/11/23 11:47 MB [id number]) PT-Bed Mobility Assessment Supine to Sit Supine to Sit Minimal Assistance,2 Person Assistance,Head of Bed Elevated,Bedrails Scooting Scooting to Edge of Bed Minimal Assistance PT-Transfer Assessment Sit to and From Stand Sit to and from Stand Maximum Assistance,2 Person Assistance,Use of Upper Extremities Equipment Transfer Assistive Device Gait Belt,Front Wheeled Walker Orthotic/Prosthetic Devices or Brace: No Transfers Transfer Destination Chair Transfer Technique Stand Pivot Transfer Ability Level of Assist Maximum Assistance,2 Person Assistance,Use of Upper Extremities Comments Mobility Comments PT provides supporting CGA for right leg for bed mobility to the right with HOB increased. Second person assists with left arm d/t reports of left shoulder issues and then pt is able to reach for right rail and scoot to EOB. Cues for TDWB right foot and to push up from the bed and not for the walker and pt stands once and then c/o spasming in leg and sits back on EOB and then second standing she gets up toe RW and performs SPT scooting on left foot that has slipper donned and she is able to keep TDWB on the right foot. Pt uses RW and two person assistance. Gait Assessment Comments Gait Comments SPT to the chair to the left PT-Balance Assessment Sitting Balance and Reactions Static Sitting Balance Ability Fair Dynamic Sitting Balance Ability Fair Standing Balance and Reactions Static Standing Balance Ability Fair Dynamic Standing Balance Ability Poor Device Used RW M5 PT-IP Objective Assessments Start: 06/07/23 15:28 Freq: NEEDED Status: Active Protocol: Document 06/07/23 13:28 AB (Rec: 06/07/23 15:58 AB [id number]) Orientation Orientation/Cognition Level of Alertness Alert Orientation Name,Place,Situation Language Function Ability Hard of Hearing Safety Awareness Decreased Safety Awareness Memory Description No Deficits Noted Gross Range of Motion Lower Extremity ROM Impairments RLE with increase pain limiting movement and ROM Strength Lower Extremity Strength Assessment Right Impaired Comments Strength Comments pt with c/o increase RLE pain with movement limiting MMT M6 PT-IP Treatment Start: 06/07/23 15:28 Freq: NEEDED Status: Active Protocol: Document 06/11/23 10:53 MB (Rec: 06/11/23 11:47 MB [id number]) Physical Therapy Treatment Education Education Provided Weight Bearing Status,Safety Other Treatments Other Treatment Performed Ed pt in ways to keep right leg straight and foot pointed to ceiling as well as APs, answered as many of pt's questions as able M7 PT-IP Assessment and Plan Start: 06/07/23 15:28 Freq: NEEDED Status: Active Protocol: Document 06/11/23 10:53 MB (Rec: 06/11/23 11:47 MB [id number]) PT Summary Assessment and Plan Potential Rehabilitation Potential Fair Status of Condition at Evaluation Unstable Summary Impairments Pain,ROM,Strength,Balance, Coordination,Bed Mobility, Transfers,Gait,Activity Tolerance Progress Towards Goals Slow Progress due to Pain,Slow Progress due to Medical Issues,Slow Progress due to Activity Tolerance Assessment Summary Krystyna makes small gains with bed mobility and STS and con't to require two person assistance for SPT to the left to the chair. Goals Bed Mobility Goal Contact Guard Assistance Transfer Goal Minimal Assistance,Front Wheeled Walker Gait Goal Minimal Assistance,Front Wheel Walker Gait Distance 15 Days to Meet Goals 5 Frequency of Treatment Frequency Of Treatment Once a Day Treatment Plan Physical Therapy Treatment Plan Bed Mobility Training,Transfer Training,Gait Training, Therapeutic Exercise,Balance Retraining,Discharge Planning, Hot or Cold Pack,Neuromuscular Re-ed Weight Bearing Status Weight Bearing Status Touch Down Weight Bearing Allowed Weight Bearing Amount (enter % RLE TTWB or #) (%) Recommendations To Nursing Amount of Assist Needed 3 or More Person Assist, Mechanical Lift Discharge Recommendations PT Discharge Recommendations SNF Rehab Transportation Needs at Discharge Stretcher/Ambulance
--- NOTE | 2023-06-11 14:06 | CM.DPNOTE ---
DCP Note COMMODITY BUYER reviewed EMR. per hospitalist in morning rounds, want to monitor blood loss for another few days. Will be ready to dc to SNF Mon. Per ortho, will review Monday if pt needs extensive ortho surgery. COMMODITY BUYER spoke with Erin at [facility], can take pt whenever if no surgery. PASRR needed. Plan: [facility] Monday morning vs transfer to for extensive ortho surgery. POC pending. CM team will continue to follow closely. ASCENCION Marsh
[2023-06-11] MEDS: ACETAMINOPHEN 325 MG TABLET 650 MG PO (18:23)
[2023-06-11] MEDS: ATORVASTATIN 20 MG TABLET 40 MG PO (20:08)
[2023-06-11 20:09] LABS: Hematocrit 26.1 % (36-46); Hemoglobin 8.8 g/dL (12.0-16.0)
[2023-06-12] VITALS (7 sets, daily range): BP systolic 105–136; BP diastolic 48–71; PULSE 74–90; RESP 17–22; TEMP 36.1–36.8; O2SAT 95–97
[2023-06-12 04:35] LABS: Add Manual Diff / Slide Review NO; Basophils Absolute Auto 0 /uL (0-100); Basophils Percent Auto 0.5 % (0-2); Eosinophils Absolute Auto 200 /uL (0-450); Eosinophils Percent Auto 3.2 % (2-4); Hematocrit 27.3 % (36-46); Hemoglobin 9.3 g/dL (12.0-16.0); Lymphocytes Absolute Auto 2000 /uL (1100-4500); Lymphocytes Percent Auto 25.8 % (25-40); Mean Corpuscular Hemoglobin 29.4 PG (26-34); Mean Corpuscular Volume 86.6 fL (80-100); Monocytes Absolute Auto 900 /uL (0-900); Monocytes Percent Auto 11.1 % (3-14); Neutrophils Absolute Auto 4600 /uL (1500-7000); Neutrophils Percent Auto 59.4 % (50-75); Platelet Count 206 X10^3/uL (150-400); Red Blood Cell Count 3.16 X10^6/uL (4.0-5.2); Red Cell Distribution Width 15.2 % (11.6-14.8); White Blood Cell Count 7.8 X10^3/uL (4.5-11.0)
[2023-06-12 04:53] LABS: Blood Urea Nitrogen 14 mg/dL (7-17); Calcium 8.3 mg/dL (8.4-10.2); Carbon Dioxide 29 mmol/L (22-32); Chloride 104 mmol/L (98-107); Estimated Glomerular Filt Rate > 60 mL/min (>60); Glucose 137 mg/dL (80-110); HEMOLYSIS < 15 (0-50); Potassium 3.6 mmol/L (3.4-5.1); Sodium 136 mmol/L (137-145)
--- NOTE | 2023-06-12 07:40 | PM.PN.1 ---
Subjective Subjective Date Patient Seen: 06/12/23 Time Patient Seen: 13:32 Interval history: Extensive surgical history taken from our office notes as well as Dr Sherwood's H&P: -1993: Right total knee arthroplasty -2006: Open reduction internal fixation of right periprosthetic femur fracture above total knee -2016: Right hip uncemented hemiarthroplasty for femoral neck fracture at [facility] -2017: Revision of right hip femoral component with Open reduction internal fixation of right inter prosthetic femoral stress fracture; this was performed by Dr Gabriella Tucker. -2018: L3-4 laminectomy and L4-[address] Mika Barrett Pt and daughter have numerous questions regarding care plan. Explained that orthopedic plan since admission has been - and continues to be - nonoperative treatment w/ serial radiographs. If, during the next 6-8 weeks, there has been inadequate signs of healing OR there is a shift in the fracture, we will refer to for operative consultation/management. Explained to pt and daughter that this will require a long, extensive surgery as well as extensive recovery, which is why she may be better served at . She last had repeat images on 06/08, which were reviewed by Dr Sherwood. She has been to [facility] for rehab in the past and is happy to work w/ their PT department. Her PT treatment during admission has been sporadic as she has needed other testing and therapies. She had an EGD on 06/08 to r/o UGIB; this was normal. Per her daughter, she continues to have black, tarry stools. Her H/H appears to be stable. Exam Vital Signs (past 8 hours): - 06/12/23 00:00 06/12/23 06:00 Temperature 97.0 F L 97.8 F Pulse Rate 79 90 Respiratory Rate 19 22 Blood Pressure 105/51 L 136/71 Pulse Oximetry 95 95 Oxygen Delivery Method Room Air Oxygen Flow Rate 0 Narrative Exam Narrative: DF, PF, EHL intact in RLE. Sensation to light touch intact throughout RLE. No pain to passive internal rotation of hip; pt is unable keep leg in neutral alignment without lateral support at knee joint. Objective Labs 06/12/23 04:01 06/12/23 04:01 Labs: Laboratory Results - last 24 hr 06/11/23 06/11/23 06/12/23 08:05 10:15 04:01 WBC 7.8 RBC 3.16 L Hgb 8.8 L 9.1 L 9.3 L Hct 26.1 L 27.3 L 27.3 L MCV 86.6 MCH 29.4 MCHC 34.0 RDW 15.2 H Plt Count 206 Neut % (Auto) 59.4 Lymph % (Auto) 25.8 Fountain % (Auto) 11.1 Eos % (Auto) 3.2 Baso % (Auto) 0.5 Neut # (Auto) 4600 Lymph # (Auto) 2000 Fountain # (Auto) 900 Eos # (Auto) 200 Baso # (Auto) 0 Sodium 136 L Potassium 3.6 Chloride 104 Carbon Dioxide 29 BUN 14 Creatinine 0.70 Estimated GFR > 60 BUN/Creatinine Ratio 20.0 Glucose 137 H Calcium 8.3 L PFSH Medical History Postop check Neck mass Muscle ache Joint swelling Joint pain Neck mass Headache Former smoker Facet arthropathy, lumbosacral Shoulder pain Anxiety Depression Sciatica Easy bruisability UTI (urinary tract infection) Acid reflux Nerve pain due to spinal stenosis History of revision of total replacement of right hip joint Elevated blood pressure reading without diagnosis of hypertension Trigeminal neuralgia Goiter Hip fracture, right Restless leg syndrome Chronic UTI History of anal fissures Surgical History Hx of shoulder surgery S/P epidural steroid injection 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 Father Diabetes mellitus Social History household members: none Smoking Status: Former smoker alcohol intake: current Assessment & Plan Assessment and plan (1) Periprosthetic fracture of hip: Qualifiers: Encounter type: subsequent encounter Qualified Code(s): M97.8XXD - Periprosthetic fracture around other internal prosthetic joint, subsequent encounter; Z96.649 - Presence of unspecified artificial hip joint Status: Acute Plan: Discussed pt w/ Dr Sherwood this morning. Plan continues to be non-operative management; if pt eventually requires or desires operative intervention, will need to refer to [facility]. At this point, Dr Sherwood will follow pt as an outpt w/ repeat imaging and re-evaluation every 2 weeks. I discussed this plan w/ the patient and her daughter, and they were in agreement. Per hospitalist, it sounds like Dr Tucker has also been contacted to review this case. Toe-touch weightbearing only to RLE. It may be helpful to start the patient on Forteo to stimulate additional bone deposition around the area of the fracture and aid in consolidation and resolution of her pain. VTE prophylaxis per hospitalist service. Chemoprophylaxis is currently being held d/t possibility of GIB. Pain management, disposition per hospitalist service.
[2023-06-12] MEDS: PANTOPRAZOLE 40 MG VIAL IV ×2 (09:12→20:43)
[2023-06-12] MEDS: MULTIVITAMIN 1 TABLET 1 TAB PO (09:12)
[2023-06-12] MEDS: GABAPENTIN 600 MG TABLET PO ×2 (09:12→20:43)
[2023-06-12] MEDS: METOPROLOL ER 25 MG TABLET PO (09:12)
[2023-06-12] MEDS: LOSARTAN 25 MG TABLET PO (09:12)
[2023-06-12] MEDS: SERTRALINE 50 MG TABLET 25 MG PO (09:12)
[2023-06-12] MEDS: PREGABALIN 50 MG CAPSULE 200 MG PO ×2 (09:12→20:43)
[2023-06-12] MEDS: FUROSEMIDE 20 MG TABLET PO ×2 (09:13→20:43)
--- NOTE | 2023-06-12 11:16 | CM.DPNOTE ---
DCP Note APPLICATION SUPPORT LEAD reviewed EMR. Per hospitalist in morning rounds, Dr. Tucker to review and determine surgery options today. Per PT, pt is open and interested in surg. APPLICATION SUPPORT LEAD spoke with Rebecca at [facility]. Likely can accept pt whenever medically stable. Plan: surg plan pending at this time. transfer for complex ortho surgery need vs dc to [facility] when stable. CM team will follow closely. ASCENCION Marsh
[2023-06-12] MEDS: methocarbamoL 500 MG TABLET 750 MG PO ×2 (11:35→21:45)
--- NOTE | 2023-06-12 14:07 | OT.IP.TRT ---
Current Diagnoses Hematemesis (06/06/23) Periprosthetic fracture around other internal prosthetic joint, initial encounter (06/06/23) Periprosthetic fracture around other internal prosthetic joint, subsequent encounter (06/06/23) Presence of unspecified artificial hip joint (06/06/23) Surgery Performed Operation Date: 06/09/23 15:00 Actual Procedures p Esophagogastroduodenoscopy - Torsten Paulino MD Occupational Therapy Treatment Note M2 OT-IP Current Condition Start: 06/07/23 12:58 Freq: Status: Active Protocol: Document 06/07/23 15:48 [id number] (Rec: 06/07/23 16:17 NONA [id number]) Occupational Therapy Current Condition Current Condition Evaluation Date 06/07/23 Treatment Diagnosis s/p periprosthetic femur fracture Diagnosis Onset Date 06/06/23 Weight Bearing Status Weight Bearing Status Touch Down Weight Bearing M3 OT- IP Subjective and Pain Start: 06/07/23 12:58 Freq: Status: Active Protocol: Document 06/12/23 14:26 CGR (Rec: 06/12/23 14:38 CGR [id number]) OT- Subjective Occupational Therapy Visit Type Type Initial Evaluation Visit Start Time 13:35 Visit Stop Time 14:07 Notes co-treat with P.T. for max x 2 transfers OT Pain Assessment Pain When Pain Assessed During Mobility Pain Present Pain Present Pain Reported Location Right Hip Scale Used did not rate Pain Behaviors Facial Grimacing,Guarding Management Techniques Distraction,Elevation, Modification of Treatment,Re- positioning,Timing of Activity with Medications M4 OT- IP ADL's Start: 06/07/23 12:58 Freq: Status: Active Protocol: Document 06/12/23 14:26 CGR (Rec: 06/12/23 14:38 CGR [id number]) OT [id number] Comments OT Self-Feeding Comments not meal time OT ADL-Grooming Comments OT Grooming Comments pt declined, pt was focused on mobility OT ADL-Oral Care Comments Oral Care Comments pt declined, pt was focused on mobility OT ADL-Dressing General Eval Lower Body Dressing Ability Total Assistance Areas Needing Assistance Socks,Shoes Comments OT Dressing Comments pt wanted sock doffed on the LLE and shoe donned. Per pt and daughter, pt is better able to swivel in shoe than sock. OT ADL-Toileting General Evaluation Toileting Ability Total Assistance Areas Needing Assistance Manage Clothing,Perform Perineal Hygiene Comments OT Toileting Comments Pt had small BM with activity. Upon last stand pt stood for back pericare and new brief donned. OT ADL-Bathing Comments OT Bathing Comments not performed M5 OT- IP IADL's Start: 06/07/23 12:58 Freq: Status: Active Protocol: Document 06/07/23 15:48 NONA (Rec: 06/07/23 16:17 NONA [id number]) OT-Instrumental Activities of Daily Living Home Safety Awareness Awareness of Need for Assistance at Home Decreased Awareness Ability to Problem Solve Emergency Unable to Problem Solve Situations Medication Management Medication Management No Deficits Identified Money Management Money Management No Deficits Identified Meal Preparation Meal Preparation Caregiver Provides Supervision Meal Preparation Comments Pt will need assist on d/c Loop Puller Loop Puller Caregiver Provides Assist Loop Puller Comments Pt will need assist on d/c Driving Driving Caregiver Provides Assist Driving Comments Pt will need assist on d/c M6 OT- IP Functional Cognition Start: 06/07/23 12:58 Freq: Status: Active Protocol: Document 06/09/23 12:36 CCC (Rec: 06/09/23 12:45 CCC [id number]) Cognitive Factors Limiting Selfcare Function Cognitive Comments Cognitive Assessment Comments Pt very motivated and able to follow commands for ADL and mobility needs. M7 OT- IP Mobility and Balance Start: 06/07/23 12:58 Freq: Status: Active Protocol: Document 06/12/23 14:26 CGR (Rec: 06/12/23 14:38 CGR [id number]) OT- Bed Mobility Assessment Supine to Sit Supine to Sit Assist Minimal Assistance,Maximum Assistance,2 Person Assistance Scooting Scooting to Edge of Bed Maximum Assistance,2 Person Assistance OT-Transfer Assessment Sit to and From Stand Sit to and from Stand Maximum Assistance,2 Person Assistance Transfers Transfer Ability Maximum Assistance,2 Person Assistance Technique Transfer Destination Bed,Chair Transfer Technique Stand Pivot Devices Transfer Assistive Devices Gait Belt,Front Wheeled Walker Comments Mobility Comments Pt stood with light max x 2 for sit to stand and was able to pivot to chair with assist. During transfer, third person present to assist in maintaining TTWB. Pt then stood for the chair x2 and was able to stand for greater than 60 seconds at each instance. Pt states that the walker being lowered was helpful for her shld pain. OT- Gait Assessment Comments Gait Ability Comments not performed OT- Balance Assessment Sitting Balance and Reactions Static Sitting Balance Ability Fair Dynamic Sitting Balance Ability Fair M8 OT- IP Objective Assessments Start: 06/07/23 12:58 Freq: Status: Active Protocol: Document 06/07/23 15:48 NONA (Rec: 06/07/23 16:17 NONA [id number]) OT Gross Range of Motion Upper Extremity Range of Motion Assessment Within Functional Limits OT Strength Upper Extremity Strength Assessment Within Functional Limits Shoulder B 3+ flexion, B 4- extension Elbow B 4- Hand Sql Consultant Strength Hand Dominance Right OT- Coordination Assessment Upper Extremity Finger to Nose Test Within Functional Limits Finger Tapping Test Within Functional Limits OT Sensation Assessment Comments Summary Comments sensation intact for B UEs M9 OT- IP Assessment and Plan Start: 06/07/23 12:58 Freq: Status: Active Protocol: Document 06/12/23 14:26 CGR (Rec: 06/12/23 14:38 CGR [id number]) OT Summary Assessment and Plan Potential Rehabilitation Potential Fair Analytic Complexity at Evaluation High Summary OT Impairments Pain,Strength,Balance, Functional Mobility,Grooming, Dressing,Toileting,Bathing, Toilet Transfers,Shower Transfers,Activity Tolerance Progress Towards Goals Slow Progress due to Pain,Slow Progress due to Medical Issues,Slow Progress due to Activity Tolerance Assessment Summary Pt participated in transfers today and sit to stand with 2 person light max a. Pt is progressing with her transfers and appears highly motivated. Pt will continue to benefit from OT services. Recommend d/ c to SNF. Goals Grooming Goal Standby Assistance Dressing Goal Moderate Assistance Toileting Goal Moderate Assistance Bathing Goal Minimal Assistance Toilet Transfer Goal Moderate Assistance Shower Transfer Goal Minimal Assistance Days to Meet Goals 20 Frequency of Treatment Frequency Of Treatment Once a Day Treatment Plan OT Treatment Plan ADL Training,Functional Mobility,Therapeutic Exercises ,Patient/Family Education, Discharge Planning Other Treatment Recommendations and Next recommend OT/PT co-tx, UE Treatment Focus strengthening HEP Discharge Recommendations OT Discharge Recommendations SNF Rehab Transportation Needs at Discharge Wheelchair/Cabulance
--- NOTE | 2023-06-12 14:07 | PT.IPTN ---
Current Diagnoses Hematemesis (06/06/23) Periprosthetic fracture around other internal prosthetic joint, initial encounter (06/06/23) Periprosthetic fracture around other internal prosthetic joint, subsequent encounter (06/06/23) Presence of unspecified artificial hip joint (06/06/23) Surgery Performed Operation Date: 06/09/23 15:00 Actual Procedures p Esophagogastroduodenoscopy - Torsten Paulino MD Physical Therapy Treatment Note M2 PT-IP Current Condition Start: 06/07/23 15:28 Freq: NEEDED Status: Active Protocol: Document 06/07/23 13:28 AB (Rec: 06/07/23 15:58 AB [id number]) Physical Therapy Current Condition Current Condition Evaluation Date 06/07/23 Treatment Diagnosis GLF; R periprosthetic fx; difficulty in walking Onset Date 06/06/23 M3 PT-IP Subjective Start: 06/07/23 15:28 Freq: NEEDED Status: Active Protocol: Document 06/12/23 14:14 ZF (Rec: 06/12/23 14:43 ZF [id number]) Subjective Physical Therapy Visit Type Type Treatment Note Visit Start Time 13:32 Visit Stop Time 14:07 Number of SHOWER ENCLOSURE INSTALLER Visits 1 Physical Therapy Visit Comments Patient Comments Pt motivated for therapy. Daughter present for session. Therapy Pain Assessment Pain When Pain Assessed During Mobility Pain Present Pain Present Allowed to Sleep Location Right Hip Scale Used Did not rate Description With Movement Pain Behaviors Facial Grimacing,Guarding, Wincing Pain Management Techniques Distraction,Modification of Treatment,Re-positioning M4 PT-IP Mobility and Gait Start: 06/07/23 15:28 Freq: NEEDED Status: Active Protocol: Document 06/12/23 14:14 ZF (Rec: 06/12/23 14:43 ZF [id number]) PT-Bed Mobility Assessment Supine to Sit Supine to Sit Minimal Assistance,Maximum Assistance,2 Person Assistance ,Head of Bed Elevated,Bedrails Scooting Scooting to Edge of Bed Minimal Assistance PT-Transfer Assessment Sit to and From Stand Sit to and from Stand Maximum Assistance,2 Person Assistance,Use of Upper Extremities Equipment Transfer Assistive Device Gait Belt,Front Wheeled Walker Orthotic/Prosthetic Devices or Brace: No Transfers Transfer Destination Chair Transfer Technique Stand Pivot Transfer Ability Level of Assist Maximum Assistance,2 Person Assistance,Use of Upper Extremities Comments Mobility Comments Supine LE AROM to prepare for functional mobility training to include ankle pumps, heel slides. Supine>Sitting EOB requires MinAx1 for LE management and MaxAx1 for upper body assist. STS from EOB, recliner, x3 requires MaxAx2 w/therapist ensuring TTWB R LE. SPT EOB>Recliner w/ 2ww, MaxAx2 for safety, for AD advancement, and to ensure TTWB. Pt tolerates 2x1' of standing w/2ww, Marlene for balance. Lowered AD height for reduced strain to shoulders, which is pt's main pain complaint during transfers. Pt reports improved ease of transfer at lower height. VC for breathing techniques to assist pt with relaxing and calming herself during transfer training. Pt agreeable to remaining up in recliner after treatment. Call light in reach, all needs met . PT-Balance Assessment Sitting Balance and Reactions Static Sitting Balance Ability Good Dynamic Sitting Balance Ability Fair Standing Balance and Reactions Static Standing Balance Ability Fair Dynamic Standing Balance Ability Poor Device Used 2ww M5 PT-IP Objective Assessments Start: 06/07/23 15:28 Freq: NEEDED Status: Active Protocol: Document 06/07/23 13:28 AB (Rec: 06/07/23 15:58 AB [id number]) Orientation Orientation/Cognition Level of Alertness Alert Orientation Name,Place,Situation Language Function Ability Hard of Hearing Safety Awareness Decreased Safety Awareness Memory Description No Deficits Noted Gross Range of Motion Lower Extremity ROM Impairments RLE with increase pain limiting movement and ROM Strength Lower Extremity Strength Assessment Right Impaired Comments Strength Comments pt with c/o increase RLE pain with movement limiting MMT M6 PT-IP Treatment Start: 06/07/23 15:28 Freq: NEEDED Status: Active Protocol: Document 06/12/23 14:14 ZF (Rec: 06/12/23 14:43 ZF [id number]) Physical Therapy Treatment Education Education Provided Weight Bearing Status,Safety Other Treatments Other Treatment Performed Breathing techniques for self calming M7 PT-IP Assessment and Plan Start: 06/07/23 15:28 Freq: NEEDED Status: Active Protocol: Document 06/12/23 14:14 ZF (Rec: 06/12/23 14:43 ZF [id number]) PT Summary Assessment and Plan Potential Rehabilitation Potential Fair Summary Impairments Pain,ROM,Strength,Balance, Coordination,Bed Mobility, Transfers,Gait,Activity Tolerance Progress Towards Goals Slow Progress due to Pain,Slow Progress due to Medical Issues,Slow Progress due to Activity Tolerance Assessment Summary Krystyna demonstrates increased tolerance for activity today with standing and transfers, has good understanding and adherance to WB precaution. Continues to require MaxAx2 for safety. Goals Bed Mobility Goal Contact Guard Assistance Transfer Goal Minimal Assistance,Front Wheeled Walker Gait Goal Minimal Assistance,Front Wheel Walker Gait Distance 15 Days to Meet Goals 5 Frequency of Treatment Frequency Of Treatment Once a Day Treatment Plan Physical Therapy Treatment Plan Bed Mobility Training,Transfer Training,Gait Training, Therapeutic Exercise,Balance Retraining,Discharge Planning, Hot or Cold Pack,Neuromuscular Re-ed Weight Bearing Status Weight Bearing Status Touch Down Weight Bearing Allowed Weight Bearing Amount (enter % RLE TTWB or #) (%) Recommendations To Nursing Amount of Assist Needed 3 or More Person Assist,PT/OT Assist Only Discharge Recommendations PT Discharge Recommendations SNF Rehab Transportation Needs at Discharge Wheelchair/Cabulance,Stretcher /Ambulance
--- NOTE | 2023-06-12 14:29 | DIET.CONS ---
Dietary Consultation Note Admission Date: 06/06/2023 15:26 Assessment: 88 y F admitted with periprosthetic R femur fracture. Nutrition screened for LOS. Per chart review, pt's nutrition status is adequate. Diet advanced from clears to regular. Ht: 167.64 cm Wt: 89.358 kg BMI: 31.8 UBW: 79.379 kg on 04/14/23 per chart; noted lasix Last BM: 06/12/23 (06/12/23 14:00) MNA: 14 Foreign Score: 18 Diet: 06/12/23 Lunch General (Regular) Diet Diet Modifications: Food Texture: Level 7 - Regular Liquid Consistency: Level 0 - Thin Nutrition Percent Meal Consumed 100% 06/10/23 18:00 Percent Meal Consumed 50% 06/10/23 17:09 Labs: RBC 3.16 X10^6/uL (4.0-5.2) L 06/12/23 04:01 Hgb 9.3 g/dL (12.0-16.0) L 06/12/23 04:01 Hct 27.3 % (36-46) L 06/12/23 04:01 Creatinine 0.70 mg/dL (0.52-1.04) 06/12/23 04:01 Nutrition Diagnosis: No nutrition related dx at this time Interventions: 1. Will continue to monitor PO intakes to ensure adequate intake. Monitoring/Evaluations: PO/weight Electronically Signed by: Yari Gottlieb 06/12/23 14:29 Clinical Dietitian [address] [id number]
--- NOTE | 2023-06-12 19:01 | PM.PN.1 ---
Subjective Subjective Interval history: Patient continues to work with PT and is slowly improving. Dr. Tucker also reviewed the case for a 2nd opinion and she thinks non-operative management is best. Exam Vital Signs (past 8 hours): - 06/12/23 16:00 06/12/23 16:14 Pulse Rate 74 74 Respiratory Rate 18 Blood Pressure 105/48 L Pulse Oximetry 97 Oxygen Flow Rate 0 Oxygen Delivery Method Room Air Oxygen Flow Rate 0 Narrative Exam Narrative: NAD, alert and oriented. Fluent speech. Lungs are clear, normal rate and effort. Heart is regular, no murmur gallop or rub. Abdomen is soft, non distended. Extremities are free of edema. Objective Labs 06/12/23 04:01 06/12/23 04:01 Labs: Laboratory Results - last 24 hr 06/11/23 06/12/23 08:05 04:01 WBC 7.8 RBC 3.16 L Hgb 8.8 L 9.3 L Hct 26.1 L 27.3 L MCV 86.6 MCH 29.4 MCHC 34.0 RDW 15.2 H Plt Count 206 Neut % (Auto) 59.4 Lymph % (Auto) 25.8 [place] % (Auto) 11.1 Eos % (Auto) 3.2 Baso % (Auto) 0.5 Neut # (Auto) 4600 Lymph # (Auto) 2000 [place] # (Auto) 900 Eos # (Auto) 200 Baso # (Auto) 0 Sodium 136 L Potassium 3.6 Chloride 104 Carbon Dioxide 29 BUN 14 Creatinine 0.70 Estimated GFR > 60 BUN/Creatinine Ratio 20.0 Glucose 137 H Calcium 8.3 L PFSH Medical History Postop check Neck mass Muscle ache Joint swelling Joint pain Neck mass Headache Former smoker Facet arthropathy, lumbosacral Shoulder pain Anxiety Depression Sciatica Easy bruisability UTI (urinary tract infection) Acid reflux Nerve pain due to spinal stenosis History of revision of total replacement of right hip joint Elevated blood pressure reading without diagnosis of hypertension Trigeminal neuralgia Goiter Hip fracture, right Restless leg syndrome Chronic UTI History of anal fissures Surgical History Hx of shoulder surgery S/P epidural steroid injection 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 Father Diabetes mellitus Social History household members: none Smoking Status: Former smoker alcohol intake: current Assessment & Plan Assessment & Plan narrative: 1. Right coco-prosthetic femur fracture, present on admission and active. - Per discussion with Dr. Sherwood, orthopedics, recommend conservative management strategy with pain control, TTWB RLE if possible, in hopes of avoiding surgery as surgery would be extensive and complex and is medically risky as would likely result in a large blood loss. Patient would go to if fails conservative management. - Continue pain control with tylenol, oxycodone. Pain control seems to be good. - TTWB RLE with PT / OT, appreciate orthopedics management. - continue home pregabalin 200 mg BID and sertraline 2. Melena, new and active. - given 1 unit of blood and continue IV Protonix. Monitor H/H. 3. Acute blood loss anemia, present on admission and active. - Dr. Paulino gen surg consulted for EGD on 06/08, returned as normal. 4. Chronic diastolic heart failure, present on admission and stable. - continue home furosemide 20 mg PO BID, metoprolol, atorvastatin, losartan. 5. HTN, present on admission and active. - continue medications as above. 6. HLD, present on admission and active. - continue home statin 7. Constipation, present on admission and resolved. -follow. Code: Full, surrogate is Scarlett Cohen DVT: hold for melena, SCD. DISPO: SNF in 1-2 days.
[2023-06-12] MEDS: ATORVASTATIN 20 MG TABLET 40 MG PO (20:42)
[2023-06-12] MEDS: SODIUM CHLORIDE 0.9% FLUSH 10 ML IV (20:43)
--- NOTE | 2023-06-13 00:22 | PC.NURSE ---
Patient is alert and oriented. Breath sounds CTA with RA sat of 97%. No SOB at rest but reports she becomes SOB with any exertion. HRR with occasional extra beats. BT present and has been having loose stools so Senna held at hs. Indwelling catheter is patent; urine is clear yellow. Is being repositioned q2h and able to help if bed is tilted. Right LE with deformity and tends to rotate outward so pillows placed to maintain good alignment. Is getting out of bed with PT/OT assist only using STS + 2-3 person assist; is TTWB only on right LE. Refusing SCD's tonight as states she can't sleep with them on but agreeable to wearing them during the day. States pain is 5-6/10 but declines any pain medication other than Robaxin which she received at 2145 and is currently asleep. Fall risk score is high and bed alarm is activated.
[2023-06-13 04:33] VITALS: BP 122/62; PULSE 87; RESP 18; TEMP 36.6; O2SAT 95
[2023-06-13 04:43] LABS: Add Manual Diff / Slide Review NO; Basophils Absolute Auto 0 /uL (0-100); Basophils Percent Auto 0.6 % (0-2); Eosinophils Absolute Auto 200 /uL (0-450); Eosinophils Percent Auto 2.7 % (2-4); Hematocrit 27.4 % (36-46); Hemoglobin 9.3 g/dL (12.0-16.0); Lymphocytes Absolute Auto 2100 /uL (1100-4500); Lymphocytes Percent Auto 27.7 % (25-40); Mean Corpuscular HGB Conc 33.9 % (30-36); Mean Corpuscular Volume 85.7 fL (80-100); Monocytes Absolute Auto 800 /uL (0-900); Monocytes Percent Auto 10.7 % (3-14); Neutrophils Absolute Auto 4500 /uL (1500-7000); Neutrophils Percent Auto 58.3 % (50-75); Platelet Count 223 X10^3/uL (150-400); Red Cell Distribution Width 15.1 % (11.6-14.8); White Blood Cell Count 7.7 X10^3/uL (4.5-11.0)
[2023-06-13 04:54] LABS: BUN Creatinine Ratio 24.7 (6-22); Blood Urea Nitrogen 18 mg/dL (7-17); Calcium 8.3 mg/dL (8.4-10.2); Carbon Dioxide 30 mmol/L (22-32); Chloride 103 mmol/L (98-107); Estimated Glomerular Filt Rate > 60 mL/min (>60); Glucose 142 mg/dL (80-110); HEMOLYSIS < 15 (0-50); Potassium 3.5 mmol/L (3.4-5.1); Sodium 137 mmol/L (137-145)
--- NOTE | 2023-06-13 08:08 | PM.PN.1 ---
Subjective Subjective Date Patient Seen: 06/13/23 Time Patient Seen: 08:08 Interval history: Patient's pain is mild at rest. Patient having more moderate to severe pain when working with physical therapy. Exam Vital Signs (past 8 hours): - 06/13/23 04:33 Temperature 97.8 F Pulse Rate 87 Respiratory Rate 18 Blood Pressure 122/62 Pulse Oximetry 95 Oxygen Delivery Method Room Air Oxygen Flow Rate 0 Narrative Exam Narrative: 88-year-old female resting comfortably in bed in no apparent distress. Sensation grossly intact to light touch bilateral lower extremities. Patient able to dorsiflex and plantar flex toes and ankle. Const General: cooperative Nutritional Appearance: well nourished Orientation: alert Resp Effort & Inspection: normal respiratory effort and able to speak in complete sentences Objective Labs 06/13/23 04:19 06/13/23 04:19 Labs: Laboratory Results - last 24 hr 06/13/23 04:19 WBC 7.7 RBC 3.20 L Hgb 9.3 L Hct 27.4 L MCV 85.7 MCH 29.0 MCHC 33.9 RDW 15.1 H Plt Count 223 Neut % (Auto) 58.3 Lymph % (Auto) 27.7 [place] % (Auto) 10.7 Eos % (Auto) 2.7 Baso % (Auto) 0.6 Neut # (Auto) 4500 Lymph # (Auto) 2100 [place] # (Auto) 800 Eos # (Auto) 200 Baso # (Auto) 0 Sodium 137 Potassium 3.5 Chloride 103 Carbon Dioxide 30 BUN 18 H Creatinine 0.73 Estimated GFR > 60 BUN/Creatinine Ratio 24.7 H Glucose 142 H Calcium 8.3 L PFSH Medical History Postop check Neck mass Muscle ache Joint swelling Joint pain Neck mass Headache Former smoker Facet arthropathy, lumbosacral Shoulder pain Anxiety Depression Sciatica Easy bruisability UTI (urinary tract infection) Acid reflux Nerve pain due to spinal stenosis History of revision of total replacement of right hip joint Elevated blood pressure reading without diagnosis of hypertension Trigeminal neuralgia Goiter Hip fracture, right Restless leg syndrome Chronic UTI History of anal fissures Surgical History Hx of shoulder surgery S/P epidural steroid injection 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 Father Diabetes mellitus Social History household members: none Smoking Status: Former smoker alcohol intake: current Assessment & Plan Assessment & Plan narrative: Treatment plan per Dr. Sherwood is to continue with non op management, if patient eventually requires operative intervention she will need to be referred to [facility]. Dr Sherwood will follow pt as an outpt w/ repeat imaging and re-evaluation every 2 weeks. Toe-touch weight-bearing right lower extremity Disposition per hospitalist
[2023-06-13 08:23] VITALS: BP 146/48
[2023-06-13] MEDS: ACETAMINOPHEN 325 MG TABLET 650 MG PO ×2 (08:23→13:27)
[2023-06-13] MEDS: PANTOPRAZOLE 40 MG VIAL IV (08:23)
[2023-06-13] MEDS: PREGABALIN 50 MG CAPSULE 200 MG PO (08:23)
[2023-06-13] MEDS: LOSARTAN 25 MG TABLET PO (08:23)
[2023-06-13] MEDS: MULTIVITAMIN 1 TABLET 1 TAB PO (08:23)
[2023-06-13 08:24] VITALS: BP 146/48
[2023-06-13] MEDS: FUROSEMIDE 20 MG TABLET PO (08:24)
[2023-06-13] MEDS: GABAPENTIN 600 MG TABLET PO (08:24)
[2023-06-13] MEDS: SERTRALINE 50 MG TABLET 25 MG PO (08:24)
[2023-06-13] MEDS: METOPROLOL ER 25 MG TABLET PO (08:24)
[2023-06-13] MEDS: methocarbamoL 500 MG TABLET 750 MG PO (08:25)
[2023-06-13] MEDS: SODIUM CHLORIDE 0.9% FLUSH 10 ML IV (08:25)
[2023-06-13 08:36] VITALS: BP 146/48; PULSE 82; RESP 20; TEMP 36.8; O2SAT 97
--- NOTE | 2023-06-13 09:01 | PM.DS.1 ---
History of Present Illness History of Present Illness Chief complaint: GLF Rt femur pain Narrative: This is an 86 year old female with PMH of CHFpEF, HTN, HLD, chronic bronchitis, chronic pain who presents to the ER after a fall. She denies any preceeding dizziness, chest pain, shortness of breath. She states she felt like her foot slipped when getting up from the couch around 6 am this morning. She was found to have a periprosthetic R femur fracture. After long discussion with orthopedics, orthopedics provider would like to trial conservative management with pain control, but if unable would transfer to for definitive surgical management. Admitted for pain control and trial of therapies. Discharge Providers Provider Date of admission: 06/06/23 15:26 Discharge Date: 06/13/23 Primary care physician: Manuela Garcia PA-C Consults: 06/06/23 16:58 Consult to Occupational Therapy Evaluate & Treat Comment: Physician Instructions: Evaluate and treat Consult to Orthopedic Surgery Routine Comment: Consulting Provider: Tomas Sherwood Reason for consultation: periprosthetic fracture Has provider been notified: Yes Consult to Physical Therapy Evaluate & Treat Comment: Touchdown weightbearing RLE Physician Instructions: Evaluate and Treat 06/08/23 16:48 Consult to General Surgery Routine Comment: Consulting Provider: Torsten Paulino Reason for consultation: UGIB? Discharge provider: Francisco Ruth MD Summary Hospital Course Discharge Diagnosis: 1. Right coco-prosthetic femur fracture, present on admission and active. - Per discussion with Dr. Sherwood, orthopedics, recommend conservative management strategy with pain control, TTWB RLE if possible, in hopes of avoiding surgery as surgery would be extensive and complex and is medically risky as would likely result in a large blood loss. Patient would go to if fails conservative management. - Continue pain control with tylenol, oxycodone. Pain control seems to be good. - TTWB RLE with PT / OT, appreciate orthopedics management. - continue home pregabalin 200 mg BID and sertraline 2. Melena, new and active. - given 1 unit of blood and continued IV Protonix. Monitor H/H. 3. Acute blood loss anemia, present on admission and active. - Dr. Paulino gen surg consulted for EGD on 06/08, returned as normal. 4. Chronic diastolic heart failure, present on admission and stable. - continued home furosemide 20 mg PO BID, metoprolol, atorvastatin, losartan. 5. HTN, present on admission and active. 6. HLD, present on admission and active. - continue home statin 7. Constipation, present on admission and resolved. Code: Full, surrogate is Scarlett Cohen DVT: hold for melena, SCD. Hospital Course: She was admitted for a periprosthetic hip fracture. Ortho was consulted and felt this was best managed without surgery. She developed blood loss anemia and then melena. The melena followed several enemas for constipation. She was transfused and and EGD (before melena 2 days) was negative. The melena resolved and she had a stable H/H. She was felt to be stable for discharge on 06/12. She had some left wrist pain and this was treated with ICE and compression. Will be on PO Protonix BID at discharge. Status at Discharge Cognitive/behavioral status at discharge: oriented Functional status at discharge: bed bound Overall status at discharge: patient is not back to baseline Time Spent with Patient Time spent: Greater than 30 minutes Exam Vital Signs (past 8 hours): - 06/13/23 04:33 06/13/23 08:23 06/13/23 08:24 Temperature 97.8 F Pulse Rate 87 Respiratory Rate 18 Blood Pressure 122/62 146/48 H 146/48 H Pulse Oximetry 95 Oxygen Flow Rate 06/13/23 08:36 Temperature 98.3 F Pulse Rate 82 Respiratory Rate 20 Blood Pressure 146/48 H Pulse Oximetry 97 Oxygen Flow Rate 0 Oxygen Delivery Method Room Air Oxygen Flow Rate 0 Narrative Exam Narrative: NAD, alert and oriented. Fluent speech. Lungs are clear, normal rate and effort. Heart is regular, no murmur gallop or rub. Abdomen is soft, non distended. Extremities are free of edema. Left wrist is tender. Not swollen or red. Objective Imaging Chest x-ray: My impression: Stable radiographic evaluation of the chest without acute cardiopulmonary abnormalities or focal airspace disease. Hip Xray: Radiologist's impression: Status post right total hip arthroplasty with no significant change in appearance of periprosthetic fracture of the proximal right femur. No significant increase in periosteal reaction or bridging callus formation. No hardware complications visualized. Labs 06/13/23 04:19 06/13/23 04:19 Labs: Laboratory Results - last 24 hr 06/13/23 04:19 WBC 7.7 RBC 3.20 L Hgb 9.3 L Hct 27.4 L MCV 85.7 MCH 29.0 MCHC 33.9 RDW 15.1 H Plt Count 223 Neut % (Auto) 58.3 Lymph % (Auto) 27.7 [place] % (Auto) 10.7 Eos % (Auto) 2.7 Baso % (Auto) 0.6 Neut # (Auto) 4500 Lymph # (Auto) 2100 [place] # (Auto) 800 Eos # (Auto) 200 Baso # (Auto) 0 Sodium 137 Potassium 3.5 Chloride 103 Carbon Dioxide 30 BUN 18 H Creatinine 0.73 Estimated GFR > 60 BUN/Creatinine Ratio 24.7 H Glucose 142 H Calcium 8.3 L PFSH Medical History Postop check Neck mass Muscle ache Joint swelling Joint pain Neck mass Headache Former smoker Facet arthropathy, lumbosacral Shoulder pain Anxiety Depression Sciatica Easy bruisability UTI (urinary tract infection) Acid reflux Nerve pain due to spinal stenosis History of revision of total replacement of right hip joint Elevated blood pressure reading without diagnosis of hypertension Trigeminal neuralgia Goiter Hip fracture, right Restless leg syndrome Chronic UTI History of anal fissures Surgical History Hx of shoulder surgery S/P epidural steroid injection 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 Father Diabetes mellitus Social History household members: none Smoking Status: Former smoker alcohol intake: current Discharge Assessment & Plan Assessment and Plan Assessment: 1. Right coco-prosthetic femur fracture, present on admission and active. 2. Melena, new and resolved. - given 1 unit of blood and continue IV Protonix. Monitor H/H. 3. Acute blood loss anemia, present on admission and active. - Dr. Paulino gen surg consulted for EGD on 06/08, returned as normal. 4. Chronic diastolic heart failure, present on admission and stable. - continue home furosemide 20 mg PO BID, metoprolol, atorvastatin, losartan. 5. HTN, present on admission and active. - continue medications as above. 6. HLD, present on admission and active. - continue home statin 7. Constipation, present on admission and resolved. Code: Full, surrogate is Scarlett Cohen DVT: hold for melena, SCD. Plan of Treatment: Discharge to [facility]. Discharge Plan Discharge Plan Patient Disposition: SNF Transfer to: [facility] Under care of provider: Dr Wills. Discharge orders & Medications Prescriptions: New methocarbamol 500 mg Tablet 750 mg PO TID PRN (Reason: Muscle Spasm) Qty: 30 0RF oxycodone 5 mg Tablet 5 mg PO Q4HR PRN (Reason: Pain, Moderate (4-6)) Qty: 20 0RF pantoprazole [Protonix] 40 mg tablet,delayed release (DR/EC) 40 mg PO BID Qty: 60 2RF Continued gabapentin 600 mg Tablet 600 mg PO BID atorvastatin 40 mg tablet 40 mg PO BEDTIME sertraline 25 mg tablet 25 mg PO DAILY Patient Comments: TAKE 1 TABLET BY MOUTH ONCE DAILY metoprolol succinate 25 mg tablet extended release 24 hr 25 mg PO DAILY pregabalin 200 mg capsule 200 mg PO BID aspirin 81 mg Tablet 81 mg PO DAILY acetaminophen [Tylenol 8 Hour] 650 mg tablet extended release 650 mg PO BEDTIME acetaminophen [Tylenol Extra Strength] 500 mg tablet 500 mg PO DAILY PRN (Reason: Pain (Scale Score 4-6)) furosemide 20 mg tablet 20 mg PO BID losartan 25 mg tablet 25 mg PO DAILY multivitamin Tablet 1 tab PO DAILY Discontinued omeprazole magnesium [Prilosec OTC] 20 mg Tablet,Delayed Release (Dr/Ec) 20 mg PO DAILY Follow up/Referrals: Tomas Sherwood MD [Physician] - 2 Weeks (Follow up w/ Dr Sherwood in 1-2 weeks for repeat xrays.) Manuela Garcia PA-C [Primary Care Provider] - Discharge Health Status Multidrug resistant organism: No MDRO Diet/Activity/Treatments Diet: Diet as Tolerated and Regular Activity: Toe-touch weightbearing to RLE. Skin/Wound/Dressing Care Report to your healthcare provider any signs of infection, such as:: increased pain and unusual drainage Visit Report/Discharge Packet Instructions: DI for Gastritis, DI for Esophagitis Stand Alone Forms: Patient Portal/API, EGD Result: [facility] Surg Discharge Data Primary Care Provider: Manuela Garcia
--- NOTE | 2023-06-13 10:28 | CM.DPNOTE ---
Addendum entered by ASCENCION Marsh 06/13/23 12:12: ASSEMBLER SKYLIGHTS spoke with Daria PASRR coordinator- invalidated Level 2 review. ASSEMBLER SKYLIGHTS updated Rebecca on PASRR invalidation. SL Original Note: DCP note ASSEMBLER SKYLIGHTS reviewed EMR. Per hospitalist, cleared to dc to SNF today, pt currently non operable. X-rays every two weeks/f/u with ortho team. ASSEMBLER SKYLIGHTS spoke with Rebecca at [facility]. Can accept pt today at 2pm. ASSEMBLER SKYLIGHTS updated hospitalist/RN. in agreement with dcp. GILBERT Woods updated [employer] DEPARTMENT SUPERVISOR. ASSEMBLER SKYLIGHTS completed PASRR. Pos for level two review due to expected stay longer than 30 days/MH hx of depression/anxiety. ASSEMBLER SKYLIGHTS lvm with Daria and faxed PASRR level 1. ASSEMBLER SKYLIGHTS gave PASRR to GILBERT Woods ASSEMBLER SKYLIGHTS met with pt and dtr in room. Agreeable to 2pm plan. ASSEMBLER SKYLIGHTS answered questions to best of ability. Med list/order pending. GILBERT Woods kindly agreed to fax dc information when available. Plan: dc to [facility] today at 2pm. Dtr to support for intake ppwk. CM team will continue to follow closely. ASCENCION Marsh
--- NOTE | 2023-06-13 11:10 | PM.DS.1 ---
History of Present Illness History of Present Illness Chief complaint: GLF Rt femur pain Narrative: This is an 86 year old female with PMH of CHFpEF, HTN, HLD, chronic bronchitis, chronic pain who presents to the ER after a fall. She denies any preceeding dizziness, chest pain, shortness of breath. She states she felt like her foot slipped when getting up from the couch around 6 am this morning. She was found to have a periprosthetic R femur fracture. After long discussion with orthopedics, orthopedics provider would like to trial conservative management with pain control, but if unable would transfer to for definitive surgical management. Admitted for pain control and trial of therapies. Discharge Providers Provider Date of admission: 06/06/23 15:26 Primary care physician: Manuela Garcia PA-C Consults: 06/06/23 16:58 Consult to Occupational Therapy Evaluate & Treat Comment: Physician Instructions: Evaluate and treat Consult to Orthopedic Surgery Routine Comment: Consulting Provider: Tomas Sherwood Reason for consultation: periprosthetic fracture Has provider been notified: Yes Consult to Physical Therapy Evaluate & Treat Comment: Touchdown weightbearing RLE Physician Instructions: Evaluate and Treat 06/08/23 16:48 Consult to General Surgery Routine Comment: Consulting Provider: Torsten Paulino Reason for consultation: UGIB? Discharge provider: Francisco Ruth MD Exam Vital Signs (past 8 hours): - 06/13/23 04:33 06/13/23 08:23 06/13/23 08:24 Temperature 97.8 F Pulse Rate 87 Respiratory Rate 18 Blood Pressure 122/62 146/48 H 146/48 H Pulse Oximetry 95 Oxygen Flow Rate 06/13/23 08:36 Temperature 98.3 F Pulse Rate 82 Respiratory Rate 20 Blood Pressure 146/48 H Pulse Oximetry 97 Oxygen Flow Rate 0 Oxygen Delivery Method Room Air Oxygen Flow Rate 0 Objective Labs 06/13/23 04:19 06/13/23 04:19 Labs: Laboratory Results - last 24 hr 06/13/23 04:19 WBC 7.7 RBC 3.20 L Hgb 9.3 L Hct 27.4 L MCV 85.7 MCH 29.0 MCHC 33.9 RDW 15.1 H Plt Count 223 Neut % (Auto) 58.3 Lymph % (Auto) 27.7 [place] % (Auto) 10.7 Eos % (Auto) 2.7 Baso % (Auto) 0.6 Neut # (Auto) 4500 Lymph # (Auto) 2100 [place] # (Auto) 800 Eos # (Auto) 200 Baso # (Auto) 0 Sodium 137 Potassium 3.5 Chloride 103 Carbon Dioxide 30 BUN 18 H Creatinine 0.73 Estimated GFR > 60 BUN/Creatinine Ratio 24.7 H Glucose 142 H Calcium 8.3 L PFSH Medical History Postop check Neck mass Muscle ache Joint swelling Joint pain Neck mass Headache Former smoker Facet arthropathy, lumbosacral Shoulder pain Anxiety Depression Sciatica Easy bruisability UTI (urinary tract infection) Acid reflux Nerve pain due to spinal stenosis History of revision of total replacement of right hip joint Elevated blood pressure reading without diagnosis of hypertension Trigeminal neuralgia Goiter Hip fracture, right Restless leg syndrome Chronic UTI History of anal fissures Surgical History Hx of shoulder surgery S/P epidural steroid injection 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 Father Diabetes mellitus Social History household members: none Smoking Status: Former smoker alcohol intake: current Discharge Assessment & Plan Assessment and Plan Assessment: 1. Right coco-prosthetic femur fracture, present on admission and active. 2. Melena, new and resolved. - given 1 unit of blood and continue IV Protonix. Monitor H/H. 3. Acute blood loss anemia, present on admission and active. - Dr. Paulino gen surg consulted for EGD on 06/08, returned as normal. 4. Chronic diastolic heart failure, present on admission and stable. - continue home furosemide 20 mg PO BID, metoprolol, atorvastatin, losartan. 5. HTN, present on admission and active. - continue medications as above. 6. HLD, present on admission and active. - continue home statin 7. Constipation, present on admission and resolved. Code: Full, surrogate is Scarlett Cohen DVT: hold for melena, SCD. Plan of Treatment: Discharge to [facility] Facility. Discharge Plan Discharge Plan Patient Disposition: SNF Transfer to: [facility] Under care of provider: Dr Wills. Discharge orders & Medications Prescriptions: New methocarbamol 500 mg Tablet 750 mg PO TID PRN (Reason: Muscle Spasm) Qty: 30 0RF oxycodone 5 mg Tablet 5 mg PO Q4HR PRN (Reason: Pain, Moderate (4-6)) Qty: 20 0RF pantoprazole [Protonix] 40 mg tablet,delayed release (DR/EC) 40 mg PO BID Qty: 60 2RF Continued gabapentin 600 mg Tablet 600 mg PO BID atorvastatin 40 mg tablet 40 mg PO BEDTIME sertraline 25 mg tablet 25 mg PO DAILY Patient Comments: TAKE 1 TABLET BY MOUTH ONCE DAILY metoprolol succinate 25 mg tablet extended release 24 hr 25 mg PO DAILY pregabalin 200 mg capsule 200 mg PO BID aspirin 81 mg Tablet 81 mg PO DAILY acetaminophen [Tylenol 8 Hour] 650 mg tablet extended release 650 mg PO BEDTIME acetaminophen [Tylenol Extra Strength] 500 mg tablet 500 mg PO DAILY PRN (Reason: Pain (Scale Score 4-6)) furosemide 20 mg tablet 20 mg PO BID losartan 25 mg tablet 25 mg PO DAILY multivitamin Tablet 1 tab PO DAILY Discontinued omeprazole magnesium [Prilosec OTC] 20 mg Tablet,Delayed Release (Dr/Ec) 20 mg PO DAILY Follow up/Referrals: Tomas Sherwood MD [Physician] - 2 Weeks (Follow up w/ Dr Sherwood in 1-2 weeks for repeat xrays.) Manuela Garcia PA-C [Primary Care Provider] - Discharge Health Status Multidrug resistant organism: No MDRO Diet/Activity/Treatments Diet: Diet as Tolerated and Regular Activity: Toe-touch weightbearing to RLE. Skin/Wound/Dressing Care Report to your healthcare provider any signs of infection, such as:: increased pain and unusual drainage Visit Report/Discharge Packet Instructions: DI for Gastritis, DI for Esophagitis Stand Alone Forms: Patient Portal/API, EGD Result: [facility] Surg Discharge Data Primary Care Provider: Manuela Garcia
--- NOTE | 2023-06-13 11:31 | PT.IPTN ---
Current Diagnoses Hematemesis (06/06/23) Periprosthetic fracture around other internal prosthetic joint, initial encounter (06/06/23) Periprosthetic fracture around other internal prosthetic joint, subsequent encounter (06/06/23) Presence of unspecified artificial hip joint (06/06/23) Surgery Performed Operation Date: 06/09/23 15:00 Actual Procedures p Esophagogastroduodenoscopy - Torsten Paulino MD Physical Therapy Treatment Note M2 PT-IP Current Condition Start: 06/07/23 15:28 Freq: NEEDED Status: Active Protocol: Document 06/07/23 13:28 AB (Rec: 06/07/23 15:58 AB [id number]) Physical Therapy Current Condition Current Condition Evaluation Date 06/07/23 Treatment Diagnosis GLF; R periprosthetic fx; difficulty in walking Onset Date 06/06/23 M3 PT-IP Subjective Start: 06/07/23 15:28 Freq: NEEDED Status: Active Protocol: Document 06/13/23 12:20 TS (Rec: 06/13/23 12:46 TS [id number]) Subjective Physical Therapy Visit Type Type Treatment Note Visit Start Time 11:31 Visit Stop Time 11:55 Number of FACULTY RESEARCH PHYSICIAN Visits 2 Physical Therapy Visit Comments Patient Comments Pt found resting in bed, pt reports pain in R forearm with finger extentsion, pt is agreeable to PT. Therapy Pain Assessment Pain When Pain Assessed During Mobility Pain Present Pain Present Pain Reported M4 PT-IP Mobility and Gait Start: 06/07/23 15:28 Freq: NEEDED Status: Active Protocol: Document 06/13/23 12:20 TS (Rec: 06/13/23 12:46 TS [id number]) PT-Bed Mobility Assessment Supine to Sit Supine to Sit Maximum Assistance,1 Person Assistance,Head of Bed Elevated,Bedrails Scooting Scooting to Edge of Bed Moderate Assistance PT-Transfer Assessment Sit to and From Stand Sit to and from Stand Moderate Assistance,1 Person Assistance Equipment Transfer Assistive Device Gait Belt,Front Wheeled Walker Orthotic/Prosthetic Devices or Brace: No Transfer Ability Level of Assist Maximum Assistance,2 Person Assistance,Use of Upper Extremities Comments Mobility Comments Pt performed heel slides, quad sets and glute sets prior to OOB mobility. Supine to sit MaxA x1 for uprighting trunk. STS from bed ModA x1, 2 person assist with nursing maintaining LLE off ground. She perform stand pivot to shower chair with 2 person assist. Pt cued for reaching back for arms of shower chair for slow eccentric control. Pt was left in chair with nrusing preparing for shower. Gait Assessment Comments Gait Comments Stand pivot PT-Balance Assessment Sitting Balance and Reactions Static Sitting Balance Ability Good Dynamic Sitting Balance Ability Fair Standing Balance and Reactions Static Standing Balance Ability Fair Dynamic Standing Balance Ability Poor Device Used 2ww M5 PT-IP Objective Assessments Start: 06/07/23 15:28 Freq: NEEDED Status: Active Protocol: Document 06/07/23 13:28 AB (Rec: 06/07/23 15:58 AB [id number]) Orientation Orientation/Cognition Level of Alertness Alert Orientation Name,Place,Situation Language Function Ability Hard of Hearing Safety Awareness Decreased Safety Awareness Memory Description No Deficits Noted Gross Range of Motion Lower Extremity ROM Impairments RLE with increase pain limiting movement and ROM Strength Lower Extremity Strength Assessment Right Impaired Comments Strength Comments pt with c/o increase RLE pain with movement limiting MMT M6 PT-IP Treatment Start: 06/07/23 15:28 Freq: NEEDED Status: Active Protocol: Document 06/13/23 12:20 TS (Rec: 06/13/23 12:46 TS [id number]) Physical Therapy Treatment Education Education Provided Weight Bearing Status,Safety Other Treatments Other Treatment Performed Breathing techniques for self calming M7 PT-IP Assessment and Plan Start: 06/07/23 15:28 Freq: NEEDED Status: Active Protocol: Document 06/13/23 12:20 TS (Rec: 06/13/23 12:46 TS [id number]) PT Summary Assessment and Plan Potential Rehabilitation Potential Fair Summary Impairments Pain,ROM,Strength,Balance, Coordination,Bed Mobility, Transfers,Gait,Activity Tolerance Progress Towards Goals Slow Progress due to Pain,Slow Progress due to Medical Issues,Slow Progress due to Activity Tolerance Assessment Summary Krystyna continues to require x2PA for STS and transfer for OOB mobility. She has good awarenesss of her TTWB with her mobility. PT continues to recommend SNF at this time. Goals Bed Mobility Goal Contact Guard Assistance Transfer Goal Minimal Assistance,Front Wheeled Walker Gait Goal Minimal Assistance,Front Wheel Walker Gait Distance 15 Days to Meet Goals 5 Frequency of Treatment Frequency Of Treatment Once a Day Treatment Plan Physical Therapy Treatment Plan Bed Mobility Training,Transfer Training,Gait Training, Therapeutic Exercise,Balance Retraining,Discharge Planning, Hot or Cold Pack,Neuromuscular Re-ed Weight Bearing Status Weight Bearing Status Touch Down Weight Bearing Allowed Weight Bearing Amount (enter % RLE TTWB or #) (%) Recommendations To Nursing Amount of Assist Needed 3 or More Person Assist Discharge Recommendations PT Discharge Recommendations SNF Rehab Transportation Needs at Discharge Wheelchair/Cabulance,Stretcher /Ambulance
--- NOTE | 2023-06-13 11:56 | OT.IP.TRT ---
Current Diagnoses Hematemesis (06/06/23) Periprosthetic fracture around other internal prosthetic joint, initial encounter (06/06/23) Periprosthetic fracture around other internal prosthetic joint, subsequent encounter (06/06/23) Presence of unspecified artificial hip joint (06/06/23) Surgery Performed Operation Date: 06/09/23 15:00 Actual Procedures p Esophagogastroduodenoscopy - Torsten Paulino MD Occupational Therapy Treatment Note M2 OT-IP Current Condition Start: 06/07/23 12:58 Freq: Status: Active Protocol: Document 06/07/23 15:48 NONA (Rec: 06/07/23 16:17 NONA [id number]) Occupational Therapy Current Condition Current Condition Evaluation Date 06/07/23 Treatment Diagnosis s/p periprosthetic femur fracture Diagnosis Onset Date 06/06/23 Weight Bearing Status Weight Bearing Status Touch Down Weight Bearing M3 OT- IP Subjective and Pain Start: 06/07/23 12:58 Freq: Status: Active Protocol: Document 06/13/23 12:32 CGR (Rec: 06/13/23 12:54 CGR [id number]) OT- Subjective Occupational Therapy Visit Type Type Treatment Note Visit Start Time 11:39 Visit Stop Time 11:56 Notes Pt requesting to get up to shower today with nursing. Nursing requesting help with getting pt into rolling shower chair. OT Pain Assessment Pain When Pain Assessed During Mobility Pain Present Pain Present Pain Reported Location Left Wrist Scale Used didn't rate Management Techniques Distraction,Modification of Treatment,Re-positioning M4 OT- IP ADL's Start: 06/07/23 12:58 Freq: Status: Active Protocol: Document 06/13/23 12:32 CGR (Rec: 06/13/23 12:54 CGR [id number]) OT PFH-[id number] Comments OT Self-Feeding Comments not meal time OT ADL-Grooming Comments OT Grooming Comments not performed OT ADL-Oral Care Comments Oral Care Comments not performed OT ADL-Dressing General Eval Lower Body Dressing Ability Total Assistance Areas Needing Assistance Socks OT ADL-Toileting General Evaluation Toileting Ability Total Assistance Areas Needing Assistance Manage Clothing Comments OT Toileting Comments Pt had small bm during transfer and needed total a for pericare and clothing management. OT ADL-Bathing Comments OT Bathing Comments performed with nursing. M5 OT- IP IADL's Start: 06/07/23 12:58 Freq: Status: Active Protocol: Document 06/07/23 15:48 NONA (Rec: 06/07/23 16:17 NONA [id number]) OT-Instrumental Activities of Daily Living Home Safety Awareness Awareness of Need for Assistance at Home Decreased Awareness Ability to Problem Solve Emergency Unable to Problem Solve Situations Medication Management Medication Management No Deficits Identified Money Management Money Management No Deficits Identified Meal Preparation Meal Preparation Caregiver Provides Supervision Meal Preparation Comments Pt will need assist on d/c Returns Supervisor Returns Supervisor Caregiver Provides Assist Returns Supervisor Comments Pt will need assist on d/c Driving Driving Caregiver Provides Assist Driving Comments Pt will need assist on d/c M6 OT- IP Functional Cognition Start: 06/07/23 12:58 Freq: Status: Active Protocol: Document 06/09/23 12:36 CCC (Rec: 06/09/23 12:45 CCC [id number]) Cognitive Factors Limiting Selfcare Function Cognitive Comments Cognitive Assessment Comments Pt very motivated and able to follow commands for ADL and mobility needs. M7 OT- IP Mobility and Balance Start: 06/07/23 12:58 Freq: Status: Active Protocol: Document 06/13/23 12:32 CGR (Rec: 06/13/23 12:54 CGR [id number]) OT- Bed Mobility Assessment Supine to Sit Supine to Sit Assist Maximum Assistance,1 Person Assistance Scooting Scooting to Edge of Bed Moderate Assistance,1 Person Assistance OT-Transfer Assessment Sit to and From Stand Sit to and from Stand Maximum Assistance,1 Person Assistance Transfers Transfer Ability Maximum Assistance,1 Person Assistance Technique Transfer Destination Bed,Wheelchair Transfer Technique Stand Pivot Devices Transfer Assistive Devices Gait Belt,Front Wheeled Walker Comments Mobility Comments Pt was able to stand with max x 1 but still 2 person necessary for safety. Pt transferred to shower w/c and assisted into the shower. Pt left with nursing. OT- Gait Assessment Comments Gait Ability Comments not performed OT- Balance Assessment Sitting Balance and Reactions Static Sitting Balance Ability Good Dynamic Sitting Balance Ability Good M8 OT- IP Objective Assessments Start: 06/07/23 12:58 Freq: Status: Active Protocol: Document 06/07/23 15:48 NONA (Rec: 06/07/23 16:17 NONA [id number]) OT Gross Range of Motion Upper Extremity Range of Motion Assessment Within Functional Limits OT Strength Upper Extremity Strength Assessment Within Functional Limits Shoulder B 3+ flexion, B 4- extension Elbow B 4- Hand Transportation Mechanic Strength Hand Dominance Right OT- Coordination Assessment Upper Extremity Finger to Nose Test Within Functional Limits Finger Tapping Test Within Functional Limits OT Sensation Assessment Comments Summary Comments sensation intact for B UEs M9 OT- IP Assessment and Plan Start: 06/07/23 12:58 Freq: Status: Active Protocol: Document 06/13/23 12:32 CGR (Rec: 06/13/23 12:54 CGR [id number]) OT Summary Assessment and Plan Potential Rehabilitation Potential Fair Analytic Complexity at Evaluation High Summary OT Impairments Pain,Strength,Balance, Functional Mobility,Grooming, Dressing,Toileting,Bathing, Toilet Transfers,Shower Transfers,Activity Tolerance Progress Towards Goals Slow Progress due to Pain,Slow Progress due to Medical Issues,Slow Progress due to Activity Tolerance Assessment Summary Pt participated with transfer to shower w/c. See above for further description of transfer. Pt left with nursing for shower. Goals Grooming Goal Standby Assistance Dressing Goal Moderate Assistance Toileting Goal Moderate Assistance Bathing Goal Minimal Assistance Toilet Transfer Goal Moderate Assistance Shower Transfer Goal Minimal Assistance Days to Meet Goals 20 Frequency of Treatment Frequency Of Treatment Once a Day Treatment Plan OT Treatment Plan ADL Training,Functional Mobility,Therapeutic Exercises ,Patient/Family Education, Discharge Planning Other Treatment Recommendations and Next recommend OT/PT co-tx, UE Treatment Focus strengthening HEP Discharge Recommendations OT Discharge Recommendations SNF Rehab Transportation Needs at Discharge Wheelchair/Cabulance
--- NOTE | 2023-06-13 13:23 | PC.NURSE ---
Report called to Lexis [facility] at [facility] and all questions answered.
--- NOTE | 2023-06-13 14:20 | PC.NURSE ---
Pt out via w/c by [employer] ([facility] [employer] personnel with all belongings.
== END 2023-06-13 14:21 | DRG 536 ==
LOC: ED 15:26 → AC 15:31 → ICU 06-07 11:52 → AC 06-07 13:10
PROVIDERS: Hospitalist; Student in an Organized Health Care Education/Training Program; Surgery; Admitting Provider Internal Medicine; Emergency Provider Emergency Medicine; PCP Physician Assistant Medical; Visit Provider Internal Medicine
PROC: 0DJ08ZZ Inspection of Upper Intestinal Tract, Via Natural or Artificial Opening Endoscopic (ICD-10-PCS; CPT 43235; principal; 2023-06-09 15:00)
DX: S72.001A Fracture of unspecified part of neck of right femur, initial encounter for closed fracture (principal); M97.01XA Periprosthetic fracture around internal prosthetic right hip joint, initial encounter; I50.32 Chronic diastolic (congestive) heart failure; D62 Acute posthemorrhagic anemia; K92.1 Melena; I11.0 Hypertensive heart disease with heart failure; E78.5 Hyperlipidemia, unspecified; K59.00 Constipation, unspecified; F32.A Depression, unspecified; W18.30XA Fall on same level, unspecified, initial encounter; Z87.891 Personal history of nicotine dependence
CPT/HCPCS: 36415; 36430; 43235; 71045; 73502; 73552; 80048; 80053; 83690; 83735; 85014; 85018; 85025; 85610; 85730; 86850; 86900; 86901; 93005; 96374; 96375; 96376; 97163; 97167; 97530; 97535; 99232; 99284; 99285; P9016; C9113; J1170; J1200; J1650; J2060; J2270; J2704